=== PATIENT | female | born 1970 | race Caucasian/White ===

== ENCOUNTER 2019-03-16 17:20 | Observation (INO) ==
[2019-03-16 17:43] LABS: Microscopic, Urine URINE MICROSCOPIC (MICROSCOPIC)
[2019-03-16 17:45] LABS: Basophils % 0.3 % (0.1-2.0); Eosinophils # 0.2 K/mm3 (0.0-0.4); Eosinophils % 1.1 % (0.1-12.0); Lymphocytes # 3.4 K/mm3 (0.7-4.5); Lymphocytes % 25.8 % (10-50); Mean Corpuscular HGB Conc 33.3 g/dL (31.8-35.4); Mean Corpuscular Volume 87.9 fl (81-99); Mean Platelet Volume 8.6 fl (7.4-10.4); Monocytes # 0.6 K/mm3 (0.1-1.0); Monocytes % 4.2 % (1.7-9.3); Neutrophils # 9.1 K/mm3 (1.8-7.8); Neutrophils % 68.5 % (37.0-80.0); Platelet Count 363 K/mm3 (142-424); Red Blood Count 5.12 M/mm3 (4.20-5.40); Red Cell Distribution Width 13.9 % (11.5-17.5); White Blood Count 13.2 K/mm3 (4.8-10.8)
[2019-03-16 17:52] LABS: Appearance,Urine CLEAR (Clear); Bilirubin,Urine Negative (Negative); Blood, Urine TRACE-I (Negative); Color,Urine YELLOW (Yellow); Glucose,Urine (UA) Negative (Negative); Ketones,Urine Negative (Negative); Leukocyte Esterase,Urine Negative (Negative); PH,Urine 6.5 (5.0-8.5); Protein,Urine Negative (Negative); Specific Gravity, Urine 1.025 (1.005-1.030)
[2019-03-16 17:58] LABS: WBC,Urine Occasional #/hpf (0-3)
[2019-03-16 18:02] LABS: Alanine Aminotransferase 37 U/L (12-78); Alkaline Phosphatase 122 U/L (46-116); Amylase 62 U/L (25-115); Anion Gap 12.9 mEq/L (5-15); Aspartate Amino Transferase 20 U/L (15-37); Bilirubin,Total 0.7 mg/dL (0.2-1.0); Carbon Dioxide 29 mmol/L (21.0-32.0); Chloride 100 mmol/L (98-107); Glucose 102 mg/dL (74-106); Sodium 138 mmol/L (136-145); Total Protein,Serum 8.1 gm/dL (6.4-8.2)
[2019-03-16 18:18] LABS: Blood Urea Nitrogen 15 mg/dL (7-18); Calcium 9.1 mg/dL (8.5-10.1); Globulin 4.1 gm/dl (1.3-3.2)
--- NOTE | 2019-03-16 20:44 | Emergency Department Note ---
ED Disposition Clinical Impression: Abdominal pain Qualifiers: Abdominal location: right upper quadrant Qualified Code(s): R10.11 - Right upper quadrant pain Disposition: Admitted as Observation Condition on Discharge: Good Instructions: DI for Acute Abdomen Referrals: Kenroy Mariano MD [Primary Care Provider] - - Critical Care Critical Care Time: No Attestation: On 03/16/19, the high probability of a clinically significant, sudden or life threatening deterioration of the following system(s) required my full and direct attention, intervention and personal management. The time I documented below is in addition to time spent performing reported procedures but includes the following listed in this critical care notation. Medical Decision Making - Medical Records Medical records reviewed: Yes: I reviewed the patient's medical records. - Marcio Inquiry Pt receiving controlled substance: No Vital Signs: 03/16/19 17:31 03/16/19 19:46 Temperature 98.5 F 98.7 F Temperature Source Oral Oral Pulse Rate [Left Radial] 74 81 Respiratory Rate 16 18 Blood Pressure [Right Arm] 177/105 H 120/75 Blood Pressure Mean [Right Arm] 129 90 Blood Pressure Source [Right Arm] Automatic Cuff Blood Pressure Position [Right Arm] Sitting Sitting 02 Sat by Pulse Oximetry 98 99 Oxygen Delivery Method Room Air Room Air - Lab Data Lab results reviewed: Yes: I reviewed the patient's lab results. Lab Results 03/16/19 17:30: Urine Color Yellow, Urine Appearance Clear, Urine pH 6.5, Ur Specific [place] 1.025, Urine Protein Negative, Urine Glucose (UA) Negative, Urine Ketones Negative, Urine Blood Trace-i, Urine Nitrate Negative, Urine Bilirubin Negative, Urine Urobilinogen 1.0, Ur Leukocyte Esterase Negative, Urine RBC 3-5, Urine WBC Occasional, Ur Squamous Epith Cells 3-5, Urine Bacteria None 03/16/19 17:30: WBC 13.2 H, RBC 5.12, Hgb 15.0, Hct 45.0, MCV 87.9, MCH 29.3, MCHC 33.3, RDW 13.9, Plt Count 363, MPV 8.6, Neut % (Auto) 68.5, Lymph % (Auto) 25.8, [place] % (Auto) 4.2, Eos % (Auto) 1.1, Baso % (Auto) 0.3, Neut # (Auto) 9.1 H, Lymph # (Auto) 3.4, [place] # (Auto) 0.6, Eos # (Auto) 0.2, Baso # (Auto) 0.0 03/16/19 17:30: Sodium 138, Potassium 3.9, Chloride 100, Carbon Dioxide 29, Anion Gap 12.9, BUN 15, Creatinine 0.96, Estimated Creat Clear 104, Estimated GFR 62, Est GFR ( Amer) 75, Glucose 102, Calcium 9.1, Total Bilirubin 0.7, AST 20, ALT 37, Alkaline Phosphatase 122 H, Troponin I < 0.02, Total Protein 8.1, Albumin 4.0, Globulin 4.1 H, Albumin/Globulin Ratio 1.0 L, Amylase 62, Lipase 91 03/16/19 17:30: C-Reactive Protein 0.5 03/16/19 17:30: ESR 12 Result diagrams: 03/16/19 17:30 03/16/19 17:30 Orders (Tests/Meds): ED MEDICATIONS Generic Name Dose Route Start Last Admin Trade Name Freq PRN Reason Stop Dose Admin Sodium Chloride 1,000 mls @ 999 mls/hr 03/16/19 19:00 03/16/19 19:40 Sod Chlor 0.9% 1000ml Bag IV 03/16/19 20:00 999 mls/hr .Q1H1M MORELIA Administration Sodium Chloride 8 ml 03/16/19 18:57 Sodium Chloride 0.9% 10ml Vial IV 04/15/19 18:56 NEEDED PRN dilute pepcid Discontinued Medications Generic Name Dose Route Start Last Admin Trade Name Freq PRN Reason Stop Dose Admin Belladonna Alkaloids 60 ml 03/16/19 17:39 03/16/19 17:54 Gi Cocktail 60ml Udc PO 03/16/19 17:40 60 ml ONCE ONE Administration Famotidine 20 mg 03/16/19 18:57 03/16/19 19:40 Pepcid 20mg/2ml Vial IV 03/16/19 18:58 20 mg ONCE ONE Administration Ioversol 75 ml 03/16/19 19:04 03/16/19 19:05 Rad-Optiray 350 100ml Vial IV 03/16/19 19:05 75 ml ONCE ONE Administration Protocol Metoclopramide HCl 10 mg 03/16/19 18:57 03/16/19 19:40 Reglan 10mg/2ml Vial IVP 03/16/19 18:58 10 mg ONCE ONE Administration Ondansetron HCl 4 mg 03/16/19 17:40 03/16/19 17:44 Zofran 4mg/2ml Vial IV 03/16/19 17:41 4 mg ONCE ONE Administration Ondansetron HCl 4 mg 03/16/19 18:11 03/16/19 18:14 Zofran 4mg/2ml Vial IV 03/16/19 18:12 4 mg ONCE ONE Administration Sodium Chloride 10 ml 03/16/19 19:04 03/16/19 19:05 Rad-Saline Flush 10ml Syringe IV 03/16/19 19:05 10 ml ONCE ONE Administration ORDERS Category Date Time Status Troponin I Q3H Lab 03/16/19 23:45 Ordered Troponin I Routine Lab 03/16/19 20:45 Ordered - Radiology Data #1 Image(s): Chest Image Reviewed: Yes I reviewed the patient's radiology image Preliminary Findings: Normal/NAD - CT Data CT Scan: Abdomen, Pelvis Time Received: 20:[address] Reviewed: Yes: I have viewed the radiologist's interpretation Preliminary Findings: Abnormal (see report ) - ECG Data Tracing #1 Normal Sinus Rhythm: Yes Ischemic changes: non-specific ST-T wave changes - Physician Consults Physician Consulted: marina Reason -: Admission Nausea/Vomiting/Diarrhea HPI - General Chief complaint: Abdominal Pain Stated complaint: vomiting. abd pain Time Seen by Provider: 03/16/19 20:00 Mode of Arrival: Ambulatory Source of Information: Patient, Relative, Medical Record Limitations: No Limitations Description of Symptoms (Recalled from ER Triage Doc. by RN): to ed per pvt car with c/o epigastric pain starting . pt with hx of "stomach problems" x several years. pt tearful +vomiting several times since . - History of Present Illness HPI Narrative: pt with progressive upper abd pain with vomiting - has seen pcp and tried op treatment - worse with meals - no melena and no etoh and no chest pain MD complaint: nausea, vomiting, abdominal pain Onset (ago): day(s) Associated Abdominal Pain: Yes Location of pain: RUQ, epigastric Severity: moderate Quality: sharp Consistency: intermittent Exacerbating factors: eating Associated symptoms: denies other symptoms - Related Data Allergies Allergy/AdvReac Type Severity Reaction Status Date / Time PENICILLIN Allergy Unknown UNKNOWN Uncoded 02/27/17 15:02 SULFA (SULFONAMIDE) Allergy Unknown I-RASH Uncoded 02/27/17 15:02 [facility] History - Hepatitis A Screen Drug use history?: No High risk sexual behaviors?: No History of sexually transmitted infection?: No Currently employed?: No Childcare worker?: No Do you have indoor plumbing?: Yes Do you have electricity?: Yes Attestation statement:: This patient has been screened for Hepatitis A risk factors. I have reviewed the patient's past medical history: Yes - Social History Smoking Status: Current every day smoker # Packs/Day (cigarettes): 0 Alcohol Intake: never Occupational Status: other Housing: other ROS Obtained: Yes All systems reviewed & no additional complaints - Constitutional Constitutional: Denies fever(s) - Eyes Eyes: Denies change in vision - ENT Ears, Nose, Mouth, and Throat: Denies sore throat - Cardiovascular Cardiovascular: Denies chest pain - Respiratory Respiratory: No cough - Gastrointestinal Gastrointestingal: Reports: as per HPI, abdominal pain, nausea, vomiting. Denies: diarrhea, black, tarry stools - Genitourinary Female Genitourinary: Denies pelvic pain - Musculoskeletal Musculoskeletal: Denies joint pain - Integumentary/Breasts Skin/Breast: Denies rash - Neurologic Neurologic: Denies focal weakness, Denies seizure-like activity Physical Exam - General General appearance: alert - Head Head exam: normocephalic - Eye Eye exam: Present: PERRL, EOMI. Absent: scleral icterus - ENT ENT exam: Present: mucous membranes dry - Neck Neck exam: Present: trachea midline - Respiratory Respiratory exam: Present: normal lung sounds bilaterally. Absent: respiratory distress - Cardiovascular Cardiovascular exam: Present: regular rate, systolic murmur. Absent: rubs - Abdominal Exam Abdominal exam: Present: soft, tenderness, Lechuga's sign. Absent: guarding, rebound, rigidity Abdominal tenderness: Present: RUQ, moderate - Extremities Exam Extremities exam: Present: full ROM - Neurological Exam Neurological exam: Present: alert, oriented X3, CN II-XII intact - Psychiatric Psychiatric exam: Present: normal affect - Skin Skin exam: Absent: rash
[2019-03-17 05:50] LABS: Basophils % 0.5 % (0.1-2.0); Eosinophils # 0.1 K/mm3 (0.0-0.4); Eosinophils % 1.1 % (0.1-12.0); Hematocrit 39.2 % (37.0-47.0); Lymphocytes # 3.8 K/mm3 (0.7-4.5); Lymphocytes % 42.5 % (10-50); Mean Corpuscular HGB Conc 33.3 g/dL (31.8-35.4); Mean Corpuscular Volume 88.2 fl (81-99); Mean Platelet Volume 8.5 fl (7.4-10.4); Monocytes # 0.6 K/mm3 (0.1-1.0); Monocytes % 6.2 % (1.7-9.3); Neutrophils # 4.5 K/mm3 (1.8-7.8); Neutrophils % 49.7 % (37.0-80.0); Platelet Count 290 K/mm3 (142-424); Red Blood Count 4.45 M/mm3 (4.20-5.40); Red Cell Distribution Width 13.9 % (11.5-17.5)
[2019-03-17 05:51] LABS: Hemoglobin 13.1 g/dL (12.2-16.2)
[2019-03-17 06:05] LABS: Anion Gap 12.8 mEq/L (5-15); Calcium 8.4 mg/dL (8.5-10.1); Chol/HDL Ratio 2.7 (1-3.5)
--- NOTE | 2019-03-17 07:49 | Pharmacy Consult Notes ---
[facility] Pharmacy VTE Monitoring - Patient Demographics Admission date: 03/16/19 Report Date: 03/17/19 Time: 07:49 Allergies/Adverse Reactions: Patient Allergies PENICILLIN Allergy (Unknown, Uncoded 02/27/17 15:02) UNKNOWN SULFA (SULFONAMIDE) Allergy (Unknown, Uncoded 02/27/17 15:02) I-RASH Height: 1.55 m Weight: 95.345 kg Patient Problems: Current Active Problems Abdominal pain (Acute) - VTE Risk Labs: VTE Related Lab Results Hgb 13.1 g/dL (12.2-16.2) D 03/17/19 05:20 Hct 39.2 % (37.0-47.0) 03/17/19 05:20 Plt Count 290 K/mm3 (142-424) 03/17/19 05:20 BUN 12 mg/dL (7-18) 03/17/19 05:20 Creatinine 0.88 mg/dL (0.55-1.02) 03/17/19 05:20 Estimated Creat Clear 116 mL/min (50-200) 03/17/19 05:20 Was VTE Risk Assessment Performed: Yes VTE Score: 2 VTE Risk Level: Very Low Risk - Prophylaxis VTE Prophylaxis Ordered?: Yes Types of VTE Prophylaxis: TEDS Knee High Location of Applied Device: Bilateral Lower Extremeties - VTE Diagnosis Confirmed Treatment or plan recommended: Continue Current Treatment
--- NOTE | 2019-03-17 08:24 | History & Physical Report ---
*Admission Date: 03/16/19 *Chief complaint: Abdominal pain and nausea *History of present illness: 48-year-old white female with a 3-day history of being sick with GI distress, nausea, vomiting, no diarrhea, has had diminished fluid intake, very weak and with significant abdominal pain. Came to the emergency department yesterday, found to have leukocytosis, tender abdomen. Dehydrated, found to have abnormal gallbladder on CT scanning with evidence of diverticulosis, enteritis and dehydration. Admitted for IV fluids. Further diagnostic testing. [facility] History I have reviewed the patient's past medical history: Yes Medical History: Reports:: Hyperlipidemia, Hypertension Denies:: Cancer, Diabetes Mellitus Type 1, Diabetes Mellitus Type 2, MRSA *Have you ever received a pneumonia vaccine?: No *Have you received a flu vaccine this season?: No Other Surgeries: Yes: Hernia Repair, Tubal Ligation, Other (D&C.) Amputation: No Fractures: No - *Social History Educational Level: Completed High School Smoking Status: Current every day smoker # Packs/Day (cigarettes): 1 Alcohol Intake: never Substance Use Type: marijuana *Occupational Status:: unemployed Housing: other Household Members: spouse *Travel in the last 8 weeks: None Family Hx:: Asthma, Diabetes, Heart Attack, Hyperlipidemia, Hypertension, Stroke Review of Systems - Review of Systems Review of systems:: pertinent systems reviewed and negative unless documented below - Constitutional Reports anorexia - *Cardiovascular Denies chest pain, Denies excessive sweating, Denies shortness of breath - *Respiratory Denies change in phlegm color, Denies shortness of breath with activity, Denies excessive phlegm production - *Neurologic Denies localized weakness, Denies seizure-like activity Meds Home Medications Medication Instructions Recorded Confirmed Type Atorvastatin Calcium [Atorvastatin 40 mg PO DAILY 03/16/19 03/16/19 History 40mg Tab] Cyclobenzaprine HCl 10 mg PO BIDP PRN 03/16/19 03/17/19 History [Cyclobenzaprine 10mg Tab] Triamterene/Hydrochlorothiazid 1 each PO DAILY 03/17/19 03/17/19 History [Dyazide 37.5-25 Capsule] Allergies Allergy/AdvReac Type Severity Reaction Status Date / Time PENICILLIN Allergy Unknown UNKNOWN Uncoded 02/27/17 15:02 SULFA (SULFONAMIDE) Allergy Unknown I-RASH Uncoded 02/27/17 15:02 Exam Vital signs and Labs for Last 24 Hours: Temp Pulse Resp BP Pulse Ox 98.0 F 61 18 130/71 94 L 03/17/19 08:00 03/17/19 08:00 03/17/19 08:00 03/17/19 08:00 03/17/19 08:00 Laboratory Results - last 24 hr 03/16/19 17:30: Urine Color Yellow, Urine Appearance Clear, Urine pH 6.5, Ur Specific [place] 1.025, Urine Protein Negative, Urine Glucose (UA) Negative, Urine Ketones Negative, Urine Blood Trace-i, Urine Nitrate Negative, Urine Bilirubin Negative, Urine Urobilinogen 1.0, Ur Leukocyte Esterase Negative, Urine RBC 3-5, Urine WBC Occasional, Ur Squamous Epith Cells 3-5, Urine Bacteria None 03/16/19 17:30: WBC 13.2 H, RBC 5.12, Hgb 15.0, Hct 45.0, MCV 87.9, MCH 29.3, MCHC 33.3, RDW 13.9, Plt Count 363, MPV 8.6, Neut % (Auto) 68.5, Lymph % (Auto) 25.8, [place] % (Auto) 4.2, Eos % (Auto) 1.1, Baso % (Auto) 0.3, Neut # (Auto) 9.1 H, Lymph # (Auto) 3.4, [place] # (Auto) 0.6, Eos # (Auto) 0.2, Baso # (Auto) 0.0 03/16/19 17:30: Sodium 138, Potassium 3.9, Chloride 100, Carbon Dioxide 29, Anion Gap 12.9, BUN 15, Creatinine 0.96, Estimated Creat Clear 104, Estimated GFR 62, Est GFR ( Amer) 75, Glucose 102, Calcium 9.1, Total Bilirubin 0.7, AST 20, ALT 37, Alkaline Phosphatase 122 H, Troponin I < 0.02, Total Protein 8.1, Albumin 4.0, Globulin 4.1 H, Albumin/Globulin Ratio 1.0 L, Amylase 62, Lipase 91 03/16/19 17:30: C-Reactive Protein 0.5 03/16/19 17:30: ESR 12 03/16/19 20:48: Troponin I < 0.02 03/16/19 23:50: Troponin I < 0.02 03/17/19 05:20: WBC 9.0 D, RBC 4.45, Hgb 13.1 D, Hct 39.2, MCV 88.2, MCH 29.4, MCHC 33.3, RDW 13.9, Plt Count 290, MPV 8.5, Neut % (Auto) 49.7, Lymph % (Auto) 42.5, [place] % (Auto) 6.2, Eos % (Auto) 1.1, Baso % (Auto) 0.5, Neut # (Auto) 4.5, Lymph # (Auto) 3.8, [place] # (Auto) 0.6, Eos # (Auto) 0.1, Baso # (Auto) 0.0 03/17/19 05:20: Sodium 140, Potassium 3.8, Chloride 103, Carbon Dioxide 28, Anion Gap 12.8, BUN 12, Creatinine 0.88, Estimated Creat Clear 116, Estimated GFR 68, Est GFR ( Amer) 83, Glucose 89, Calcium 8.4 L, Magnesium 2.0, Triglycerides 53, Cholesterol 139 L, LDL Cholesterol 76, VLDL Cholesterol 11, HDL Cholesterol 52, Cholesterol/HDL Ratio 2.7 I & O for Last 24 hours: Intake & Output 03/14/19 03/15/19 03/16/19 03/17/19 11:59 11:59 11:59 11:59 Intake Total 1353 / 1353 Balance 1353 / 1353 Weight 210 lb 3.2 oz Narrative: Pleasant, alert, oriented x3. No scleral icterus. No jaundice, no JVD. Oropharynx clear. Lungs clear. Heart rate regular. Abdomen soft, nontender except in the right upper quadrant where she has a positive Lechuga sign. No CVA tenderness. No periumbilical or flank bruising. No edema, clubbing or cyanosis. Neurologic exam intact. Assessment and Plan (1) Abdominal pain Current visit: Yes Status: Acute Qualifiers: Abdominal location: right upper quadrant Qualified Code(s): R10.11 - Right upper quadrant pain Category: Medical Code(s): R10.9 - Unspecified abdominal pain CT scan with contracted gallbladder with possible stones. Ultrasound today. Continue IV fluids and clear liquids. Surgical consultation if indicated from ultrasound report.
--- NOTE | 2019-03-17 12:18 | Consult Report ---
*Admission Date: 03/16/19 *Reason for consult:: Gallbladder *History of present illness: Patient is a 48-year-old female who resides in [place] [employer] [place]. She states that she has had upper abdominal pain and symptomatology for 3 years. It has been progressively more severe over the past couple of months as she had previously taken omeprazole which seemed to somewhat alleviate her symptoms. She presented to the emergency department overnight with a 3-day history of being sick with GI distress, nausea, vomiting, no diarrhea, has had diminished fluid intake, very weak and with significant abdominal pain. She was found to have leukocytosis, tender abdomen. CT scan revealed possible findings of abnormal gallbladder. She was admitted for inpatient management. Her nausea resolved but she continued to have tenderness. She underwent gallbladder ultrasound today which revealed findings of contracted gallbladder with thickened wall and gallstone. Surgical consultation was obtained. Review of Systems - Review of Systems Review of systems:: pertinent systems reviewed and negative unless documented below - *Neurologic Denies localized weakness, Denies seizure-like activity [facility] History I have reviewed the patient's past medical history: Yes Medical History: Reports:: Hyperlipidemia, Hypertension Denies:: Cancer, Diabetes Mellitus Type 1, Diabetes Mellitus Type 2, MRSA *Have you ever received a pneumonia vaccine?: No *Have you received a flu vaccine this season?: No Other Surgeries: Yes: Hernia Repair, Tubal Ligation, Other (D&C.) Amputation: No Fractures: No - *Social History Educational Level: Completed High School Smoking Status: Current every day smoker # Packs/Day (cigarettes): 1 Alcohol Intake: never Substance Use Type: marijuana *Occupational Status:: unemployed Housing: other Household Members: spouse *Travel in the last 8 weeks: None Family Hx:: Asthma, Diabetes, Heart Attack, Hyperlipidemia, Hypertension, Stroke Meds Home Medications Medication Instructions Recorded Confirmed Type Atorvastatin Calcium [Atorvastatin 40 mg PO DAILY 03/16/19 03/16/19 History 40mg Tab] Cyclobenzaprine HCl 10 mg PO BIDP PRN 03/16/19 03/17/19 History [Cyclobenzaprine 10mg Tab] Triamterene/Hydrochlorothiazid 1 each PO DAILY 03/17/19 03/17/19 History [Dyazide 37.5-25 Capsule] Allergies Allergy/AdvReac Type Severity Reaction Status Date / Time PENICILLIN Allergy Unknown UNKNOWN Uncoded 12/19/17 15:02 SULFA (SULFONAMIDE) Allergy Unknown I-RASH Uncoded 02/27/17 15:02 Exam Vital signs and Labs for Last 24 Hours: Temp Pulse Resp BP Pulse Ox 98.1 F 66 14 111/69 95 03/17/19 12:06 03/17/19 12:06 03/17/19 12:06 03/17/19 12:06 03/17/19 12:06 Laboratory Results - last 24 hr 03/16/19 17:30: Urine Color Yellow, Urine Appearance Clear, Urine pH 6.5, Ur Specific [place] 1.025, Urine Protein Negative, Urine Glucose (UA) Negative, Urine Ketones Negative, Urine Blood Trace-i, Urine Nitrate Negative, Urine Bilirubin Negative, Urine Urobilinogen 1.0, Ur Leukocyte Esterase Negative, Urine RBC 3-5, Urine WBC Occasional, Ur Squamous Epith Cells 3-5, Urine Bacteria None 03/16/19 17:30: WBC 13.2 H, RBC 5.12, Hgb 15.0, Hct 45.0, MCV 87.9, MCH 29.3, MCHC 33.3, RDW 13.9, Plt Count 363, MPV 8.6, Neut % (Auto) 68.5, Lymph % (Auto) 25.8, [place] % (Auto) 4.2, Eos % (Auto) 1.1, Baso % (Auto) 0.3, Neut # (Auto) 9.1 H, Lymph # (Auto) 3.4, [place] # (Auto) 0.6, Eos # (Auto) 0.2, Baso # (Auto) 0.0 03/16/19 17:30: Sodium 138, Potassium 3.9, Chloride 100, Carbon Dioxide 29, Anion Gap 12.9, BUN 15, Creatinine 0.96, Estimated Creat Clear 104, Estimated GFR 62, Est GFR ( Amer) 75, Glucose 102, Calcium 9.1, Total Bilirubin 0.7, AST 20, ALT 37, Alkaline Phosphatase 122 H, Troponin I < 0.02, Total Protein 8.1, Albumin 4.0, Globulin 4.1 H, Albumin/Globulin Ratio 1.0 L, Amylase 62, Lipase 91 03/16/19 17:30: C-Reactive Protein 0.5 03/16/19 17:30: ESR 12 03/16/19 20:48: Troponin I < 0.02 03/16/19 23:50: Troponin I < 0.02 03/17/19 05:20: WBC 9.0 D, RBC 4.45, Hgb 13.1 D, Hct 39.2, MCV 88.2, MCH 29.4, MCHC 33.3, RDW 13.9, Plt Count 290, MPV 8.5, Neut % (Auto) 49.7, Lymph % (Auto) 42.5, [place] % (Auto) 6.2, Eos % (Auto) 1.1, Baso % (Auto) 0.5, Neut # (Auto) 4.5, Lymph # (Auto) 3.8, [place] # (Auto) 0.6, Eos # (Auto) 0.1, Baso # (Auto) 0.0 03/17/19 05:20: Sodium 140, Potassium 3.8, Chloride 103, Carbon Dioxide 28, Anion Gap 12.8, BUN 12, Creatinine 0.88, Estimated Creat Clear 116, Estimated GFR 68, Est GFR ( Amer) 83, Glucose 89, Calcium 8.4 L, Magnesium 2.0, Triglycerides 53, Cholesterol 139 L, LDL Cholesterol 76, VLDL Cholesterol 11, HDL Cholesterol 52, Cholesterol/HDL Ratio 2.7 I & O for Last 24 hours: Intake & Output 03/15/19 03/16/19 03/17/19 03/18/19 11:59 11:59 11:59 11:59 Intake Total 1353 / 1353 Balance 1353 / 1353 Weight 210 lb 3.2 oz - *Routine Respiratory Exam Present: CTA bilaterally - *Routine Cardiovascular Exam Present: RRR - *Routine Abdominal Exam Present: soft Comments: She has a well-healed laparoscopy scar and a scar in the mid upper abdomen from prior hernia repair. She does have tenderness with Lechuga sign in the right upper quadrant. Results - Labs 03/17/19 05:20 03/17/19 05:20 Laboratory Results - last 24 hr 03/16/19 17:30: Urine Color Yellow, Urine Appearance Clear, Urine pH 6.5, Ur Specific [place] 1.025, Urine Protein Negative, Urine Glucose (UA) Negative, Urine Ketones Negative, Urine Blood Trace-i, Urine Nitrate Negative, Urine Bilirubin Negative, Urine Urobilinogen 1.0, Ur Leukocyte Esterase Negative, Urine RBC 3-5, Urine WBC Occasional, Ur Squamous Epith Cells 3-5, Urine Bacteria None 03/16/19 17:30: WBC 13.2 H, RBC 5.12, Hgb 15.0, Hct 45.0, MCV 87.9, MCH 29.3, MCHC 33.3, RDW 13.9, Plt Count 363, MPV 8.6, Neut % (Auto) 68.5, Lymph % (Auto) 25.8, [place] % (Auto) 4.2, Eos % (Auto) 1.1, Baso % (Auto) 0.3, Neut # (Auto) 9.1 H, Lymph # (Auto) 3.4, [place] # (Auto) 0.6, Eos # (Auto) 0.2, Baso # (Auto) 0.0 03/16/19 17:30: Sodium 138, Potassium 3.9, Chloride 100, Carbon Dioxide 29, Anion Gap 12.9, BUN 15, Creatinine 0.96, Estimated Creat Clear 104, Estimated GFR 62, Est GFR ( Amer) 75, Glucose 102, Calcium 9.1, Total Bilirubin 0.7, AST 20, ALT 37, Alkaline Phosphatase 122 H, Troponin I < 0.02, Total Protein 8.1, Albumin 4.0, Globulin 4.1 H, Albumin/Globulin Ratio 1.0 L, Amylase 62, Lipase 91 03/16/19 17:30: C-Reactive Protein 0.5 03/16/19 17:30: ESR 12 03/16/19 20:48: Troponin I < 0.02 03/16/19 23:50: Troponin I < 0.02 03/17/19 05:20: WBC 9.0 D, RBC 4.45, Hgb 13.1 D, Hct 39.2, MCV 88.2, MCH 29.4, MCHC 33.3, RDW 13.9, Plt Count 290, MPV 8.5, Neut % (Auto) 49.7, Lymph % (Auto) 42.5, [place] % (Auto) 6.2, Eos % (Auto) 1.1, Baso % (Auto) 0.5, Neut # (Auto) 4.5, Lymph # (Auto) 3.8, [place] # (Auto) 0.6, Eos # (Auto) 0.1, Baso # (Auto) 0.0 03/17/19 05:20: Sodium 140, Potassium 3.8, Chloride 103, Carbon Dioxide 28, Anion Gap 12.8, BUN 12, Creatinine 0.88, Estimated Creat Clear 116, Estimated GFR 68, Est GFR ( Amer) 83, Glucose 89, Calcium 8.4 L, Magnesium 2.0, Triglycerides 53, Cholesterol 139 L, LDL Cholesterol 76, VLDL Cholesterol 11, HDL Cholesterol 52, Cholesterol/HDL Ratio 2.7 Assessment and Plan (1) Abdominal pain Current visit: Yes Status: Acute Qualifiers: Abdominal location: right upper quadrant Qualified Code(s): R10.11 - Right upper quadrant pain Category: Medical Code(s): R10.9 - Unspecified abdominal pain - Assessment and plan all Dx Assessment and Plan for all problems:: She does have findings consistent with chronic cholecystitis with acute exacerbation. I discussed the options with the patient. I will let her have full liquids this afternoon. Tentatively plan for laparoscopic with possibly open cholecystectomy tomorrow.
--- NOTE | 2019-03-17 13:00 | Electrocardiograph Report ---
APPROVED REPORT Exam: Resting ECG HR:63 bpm ECG Measurements Heart Rate 63 AXES VA 162 P 71 QRSd 76 QRS 85 QT 426 T72 QTc 435 <Conclusion> Normal sinus rhythm Nonspecific ST abnormality Abnormal ECG Electronically signed by : Prem Jaffe, 03/17/2019 13:00:09
--- NOTE | 2019-03-18 12:32 | Progress Note ---
[facility] Anesthesia Checklist - Patient Identification Patient Identification: Arm Band, Verbal (Name & ) - Structural Data Admitted From: Inpatient Planned Operative Procedure/s: Laparoscopic cholecystectomy Consent for Planned Operative Procedure(s) Verified: Yes Verified Documents: Surgical Consent, History and Physical - NPO Status Verified Time NPO: 00:00 - Chart Verification Results Verified: CBC, BMP - Additional verifications Patient : No Anesthesia Reactions: No - Airway Assessment C-Spine Mobility Assessed: Yes TMJ Mobility Assessed: Yes Dentition: Good Dentition - Neurological Assessment Level of Consciousness: Awake, Alert, Appropriate, Follows Commands Hx Seizures: No Numbness or tingling in extremities: No - Anesthesia Plan Anesthesia Risk discussed: Yes Anesthesia Plan: Verified ASA Class: III Anesthesia Type: General [facility] History I have reviewed the patient's past medical history: Yes Medical History: Reports:: Asthma, Gastroesophageal Reflux Disease(GERD), Hyperlipidemia, Hypertension Denies:: Cancer, Diabetes Mellitus Type 1, Diabetes Mellitus Type 2, MRSA *Have you ever received a pneumonia vaccine?: No *Have you received a flu vaccine this season?: No Comment:: obesity, hx of neurospine abnormality as Anesthesia experience/problems:: no complications Other Surgeries: Yes: Dilation and Curettage, Hernia Repair, Tubal Ligation, O ther (D&C.) Amputation: No Fractures: No - *Social History Educational Level: Completed High School Smoking Status: Current every day smoker Tobacco Type: cigarettes # Packs/Day (cigarettes): 1 Alcohol Intake: never Substance Use Type: marijuana *Occupational Status:: unemployed Housing: other Household Members: spouse *Travel in the last 8 weeks: None Family Hx:: Asthma, Diabetes, Heart Attack, Hyperlipidemia, Hypertension, Stroke
--- NOTE | 2019-03-18 13:58 | Progress Note ---
Internal Medicine - PN: Subj *Date: 03/18/19 *Time: 08:15 Interval history: Patient pleasant and cooperative on rounds this morning. Continues to complain of some right upper quadrant pain. N.p.o. this morning for anticipated surgical intervention on gallbladder. Denies any nausea or vomiting overnight. Remained afebrile. Hemodynamically stable this morning. Reviewed labs, normal this morning. Patient otherwise states she feels little bit better today. Denies chest pain, shortness of breath, confusion Exam Vital signs and Labs for Last 24 Hours: Temp Pulse Resp BP Pulse Ox 97.7 F 64 18 131/76 97 03/18/19 08:00 03/18/19 08:00 03/18/19 08:00 03/18/19 08:00 03/18/19 08:00 Laboratory Results - last 24 hr 03/18/19 11:15: Urine HCG, Qual Negative I & O for Last 24 hours: Intake & Output 03/15/19 03/16/19 03/17/19 03/18/19 23:59 23:59 23:59 23:59 Intake Total 1000 / 1000 1874 / 1874 Output Total 500 / 500 500 / 500 Balance 1000 / 1000 1374 / 1374 -500 / -500 Weight 95.345 kg 93.553 kg Narrative: Pleasant, alert, oriented x3. No scleral icterus. No jaundice, no JVD. Oropharynx clear, MMM Lungs clear, no wheeze or rhonchi Heart rate regular, no murmur Abdomen soft, right upper quadrant tenderness, positive Lechuga sign. No tenderness in other quadrants, no rebound or guarding No edema, clubbing or cyanosis. Neurologic exam intact. Assessment and Plan (1) Abdominal pain Current visit: Yes Status: Acute Qualifiers: Abdominal location: right upper quadrant Qualified Code(s): R10.11 - Right upper quadrant pain Category: Medical Code(s): R10.9 - Unspecified abdominal pain (2) Cholelithiasis Current visit: Yes Status: Acute Qualifiers: Cholelithiasis location: gallbladder Category: Medical Code(s): K80.20 - Calculus of gallbladder without cholecystitis without obstruction (3) Obesity with body mass index (BMI) of 35.0 to 39.9 without comorbidity Current visit: Yes Status: Chronic Category: Medical Code(s): E66.9 - Obesity, unspecified complicates all aspects of her care. - Assessment and plan all Dx Assessment and Plan for all problems:: Planning for Surgery today. Continue IV Abx. Plan advance diet slowly after surgery. Continue to monitor overnight for any complications. Reassess in the morning.
--- NOTE | 2019-03-18 14:51 | Operative Note ---
Date of procedure: 03/18/19 Pre-op Diagnosis:: Cholecystitis with gallstones Post-op Diagnosis:: Same Procedure performed:: Laparoscopic cholecystectomy Surgeon:: Pierre Echeverria MD Anesthesia: SEBASTIAN Estimated blood loss (mL): 50 Clinical Note:: Patient is a 48-year-old female who resides in [place]. She states that she has had upper abdominal pain and symptomatology for 3 years. It has been progressively more severe over the past couple of months as she had previously taken omeprazole which seemed to somewhat alleviate her symptoms. She presented to the emergency department recently with a several day history of being sick with GI distress, nausea, vomiting, no diarrhea, has had diminished fluid intake, very weak and with significant abdominal pain. She was found to have leukocytosis, tender abdomen. CT scan revealed possible findings of abnormal gallbladder. She was admitted for inpatient management. Her nausea resolved but she continued to have tenderness. She underwent gallbladder ultrasound which revealed findings of contracted gallbladder with thickened wall and gallstone. Surgical consultation was obtained. Patient was seen and examined. She had ongoing findings consistent with clinical cholecystitis. Plan was made to proceed with cholecystectomy the next morning. Operative findings:: Patient had significant adhesions to the gallbladder. 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 Gallbladder was contracted and thickened with large stones. Gallbladder was hydropic. She had appreciably fatty liver. Operative note:: Consent was obtained and patient was taken to the operating room. She was given preoperative intravenous antibiotics. In the operating room she was placed in a supine position. General anesthesia was induced via endotracheal tube. Her abdomen was prepped and draped in the standard surgical fashion. Subumbilical skin incision was made in previous laparoscopy scar. Dissection was carried down to the fascia and while performing abdominal wall lift Veress needle was inserted. CO2 pneumoperitoneum was achieved to 15 mmHg. 10 mm trocar was inserted at the umbilicus. Intraperitoneal contents were visualized. She was found to have evidence of fatty liver. The 0 degree laparoscope was replaced with 45 degree laparoscope to allow for visualization. She was positioned in reverse Trendelenburg with left side down. A couple of 5 mm trochars were inserted in the right upper abdomen. 10 mm trocar was inserted in the epigastrium. Liver was elevated. There was markedly thickened with some evidence of fatty infiltration. It bled rather easily. Some Surgicel was used for temporary hemostasis on the liver bed. There was good hemostasis once this was removed. It was noted that the duodenal bulb was densely adherent to the gallbladder. Careful dissection was initiated with blunt dissection and some limited use of laparoscopic Metzenbaum dissection. However, there were findings possibly consistent with and concerning for a cholecysto-duodenal fistula. This was adherent to the apex of the gallbladder at the fundus. Dissection was carried down to the gallbladder and this was very densely adherent. Ultimately it was divided. It was inspected for evidence of any enteric leak of which none was noted. Anesthesia then placed a orogastric tube. Stomach was insufflated with air as was the duodenum and it was visualized to insufflate. There is no evidence of any leakage from the duodenum. The previously noted attachment to the gallbladder was then looped with a couple of 0 PDS Endoloops. Attention was turned to dissection of the gallbladder. The fundus of the gallbladder was retracted anteriorly. Dissection was carried out to the infundibulum and body of the gallbladder which was retracted anterior laterally. There were impacted stones in the neck of the gallbladder. Careful prolonged dissection was carried out of the wendy hepatis. Ultimately the cystic duct was identified. It was multiply clipped and then divided. What appeared to be cystic artery was identified as well at that time visualizing the critical view of safety. The cystic artery was clipped proximally and then divided sharply. There was good backbleeding from the gallbladder. Hemoclip was then placed on the gallbladder portion of the cystic artery. The gallbladder was dissected free from the liver in a retrograde fashion using JOSE FRANCISCO ultrasonic harmonic ermelinda. Please note that there was some evidence of hydrops of the gallbladder with some mucousy bile exuding from the gallbladder which was immediately suctioned free. The gallbladder was placed within an Endo Catch retrieval device and removed from the peritoneal cavity via the umbilical trocar site. Gallbladder fossa was thoroughly irrigated and aspirated until clear. There appeared to be good hemostasis. Trochars were removed as CO2 pneumoperitoneum was evacuated. Fascia at the umbilicus was closed with a 0 Vicryl [id number] suture. Local anesthetic was infiltrated. Skin incisions were closed with 4-0 Monocryl in a subcuticular fashion. Steri-Strips and dressings were applied. Note: Given the findings of potential cholecysto enteric fistula plan will be to limit to a clear liquid diet overnight and obtain an upper GI series tomorrow morning. Condition: stable Disposition: PACU Specimens:: Gallbladder and contents Complications:: None immediately apparent
--- NOTE | 2019-03-18 15:02 | Progress Note ---
[facility] Anesthesia Record Part I Intake, IV Amount: 1,400 Estimated blood loss (mL): 50 Urine output (mL): 0 Blood Pressure: 146/69 SaO2: 97 Pulse Rate: 64 Respiratory Rate: 16 Temperature: 97.1 F Patient is:: Drowsy, Stable Stable to PACU at:: 14:50
--- NOTE | 2019-03-18 23:33 | Progress Note ---
[facility] Anesthesia Record Part II Discharge Time: 15:38 Destination: Medical Surgical Department PACU nurse assessment reviewed?: Yes Patient Condition:: Good Anesthesia Complications:: None Swallowing reflex intact?: Yes Cyanosis?: No Blood Pressure: 150/86 Pulse Rate: 56 Temperature: 97.1 F Mental Status: Alert & Oriented Pain level:: 0 Nausea and/or vomitting:: None Intake, IV Amount: 0
--- NOTE | 2019-03-19 06:58 | Progress Note ---
Subjective Narrative: Patient complains of being "sore". Tolerating clear liquid diet. Exam Vital signs and Labs for Last 24 Hours: Temp Pulse Resp BP Pulse Ox 98.4 F 64 18 114/64 93 L 03/19/19 04:00 03/19/19 04:00 03/19/19 04:00 03/19/19 04:00 03/19/19 04:00 Laboratory Results - last 24 hr 03/18/19 11:15: Urine HCG, Qual Negative I & O for Last 24 hours: Intake & Output 03/16/19 03/17/19 03/18/19 03/19/19 11:59 11:59 11:59 11:59 Intake Total 1353 / 1353 1521 / 1521 2989 / 2989 Output Total 1000 / 1000 2600 / 2600 Balance 1353 / 1353 521 / 521 389 / 389 Weight 210 lb 3.2 oz 206 lb 4 oz 211 lb 4 oz - *Routine Abdominal Exam Present: soft Comments: Incision dressed. Progress Note: A&P (1) Abdominal pain Status: Acute Current Visit: Yes (2) Cholelithiasis Status: Acute Current Visit: Yes (3) Obesity with body mass index (BMI) of 35.0 to 39.9 without comorbidity Status: Chronic Current Visit: Yes Assessment and Plan for All Diagnoses:: Due to the fact that her duodenal bulb was densely adherent to the gallbladder and there was potential cholecysto-enteric fistula plan for upper GI today. Pending this possible discharge later.
--- NOTE | 2019-03-19 08:44 | Progress Note ---
Internal Medicine - PN: Subj *Date: 03/19/19 *Time: 08:43 Interval history: Overall patient feels okay, breathing well. Does note some expected incisional pain. Surgical operative note and consultation reviewed and appreciated. Exam Vital signs and Labs for Last 24 Hours: Temp Pulse Resp BP Pulse Ox 98.2 F 73 18 141/78 H 94 L 03/19/19 08:00 03/19/19 08:00 03/19/19 08:00 03/19/19 08:00 03/19/19 08:00 Laboratory Results - last 24 hr 03/18/19 11:15: Urine HCG, Qual Negative I & O for Last 24 hours: Intake & Output 03/16/19 03/17/19 03/18/19 03/19/19 11:59 11:59 11:59 11:59 Intake Total 1353 / 1353 1521 / 1521 2989 / 2989 Output Total 1000 / 1000 2600 / 2600 Balance 1353 / 1353 521 / 521 389 / 389 Weight 210 lb 3.2 oz 206 lb 4 oz 211 lb 4 oz Narrative: Heart rate regular, lungs clear, oropharynx clear, no JVD. Neurologically intact. Abdomen soft, incision site looks good. Assessment and Plan (1) Abdominal pain Current visit: Yes Status: Acute Qualifiers: Abdominal location: right upper quadrant Qualified Code(s): R10.11 - Right upper quadrant pain Category: Medical Code(s): R10.9 - Unspecified abdominal pain (2) Cholelithiasis Current visit: Yes Status: Acute Qualifiers: Cholelithiasis location: gallbladder Category: Medical Code(s): K80.20 - Calculus of gallbladder without cholecystitis without obstruction (3) Obesity with body mass index (BMI) of 35.0 to 39.9 without comorbidity Current visit: Yes Status: Chronic Category: Medical Code(s): E66.9 - Obesity, unspecified - Assessment and plan all Dx Assessment and Plan for all problems:: Progressing well postoperatively. Continue current management. Upper GI testing today. Possible discharge after this.
--- NOTE | 2019-03-19 12:48 | Progress Note ---
Subjective Narrative: Patient's upper GI series today revealed no evidence of any appreciable issue at the duodenal bulb. She had a low-fat diet for lunch which she tolerated without difficulty. Exam Vital signs and Labs for Last 24 Hours: Temp Pulse Resp BP Pulse Ox 98.2 F 73 18 141/78 H 94 L 03/19/19 08:00 03/19/19 08:00 03/19/19 08:00 03/19/19 08:00 03/19/19 08:00 I & O for Last 24 hours: Intake & Output 03/17/19 03/18/19 03/19/19 03/20/19 11:59 11:59 11:59 11:59 Intake Total 1353 / 1353 1521 / 1521 2989 / 2989 Output Total 1000 / 1000 2600 / 2600 Balance 1353 / 1353 521 / 521 389 / 389 Weight 210 lb 3.2 oz 206 lb 4 oz 211 lb 4 oz - Constitutional no acute distress Progress Note: A&P (1) Abdominal pain Status: Acute Current Visit: Yes (2) Cholelithiasis Status: Acute Current Visit: Yes (3) Obesity with body mass index (BMI) of 35.0 to 39.9 without comorbidity Status: Chronic Current Visit: Yes Assessment and Plan for All Diagnoses:: Plan to discharge home
--- NOTE | 2019-03-19 13:34 | Discharge Summary ---
General - General Admission date:: 03/16/19 Discharge date: 03/19/19 HPI HPI: 48-year-old white female with a 3-day history of being sick with GI distress, nausea, vomiting, no diarrhea, has had diminished fluid intake, very weak and with significant abdominal pain. Came to the emergency department yesterday, found to have leukocytosis, tender abdomen. Dehydrated, found to have abnormal gallbladder on CT scanning with evidence of diverticulosis, enteritis and dehydration. Admitted for IV fluids. Further diagnostic testing. Hospital Course Hospital Course: Patient was admitted, labs and CT scan were noted as above, ultrasound showed findings consistent with acute cholelithiasis with acute cholecystitis. Patient was subjected to laparoscopic cholecystectomy yesterday. She did well with this. Tolerated clear liquids. This morning upper GI showed no evidence of obstruction and no evidence of duodenitis. She felt better, tolerating low-fat diet and she will be discharged home. Objective Vital signs: Temp Pulse Resp BP Pulse Ox 98.2 F 73 18 141/78 H 94 L 03/19/19 08:00 03/19/19 08:00 03/19/19 08:00 03/19/19 08:00 03/19/19 08:00 Narrative: Please see exam notes from this morning. DS: Diagnosis - Discharge Diagnosis (1) Abdominal pain Status: Resolved (2) Cholelithiasis Status: Resolved (3) Obesity with body mass index (BMI) of 35.0 to 39.9 without comorbidity Status: Chronic Discharge Plan - Patient Discharge Instructions ACTIVITY: No heavy lifting DIET: advance to your usual diet Patient Instructions: DI for Cholecystectomy, DI for Surgical Site Infection, Cholecystectomy -- Laparoscopic Surgery - Follow up Plan Follow up with: Pierre Echeverria MD [Staff Physician] - 2 weeks Kenroy Mariano MD [Primary Care Provider] - Disposition: Home, Self-[facility] Medications: Home Medications Medication Instructions Recorded Confirmed Type Atorvastatin Calcium [Atorvastatin 40 mg PO DAILY 03/16/19 03/16/19 History 40mg Tab] Cyclobenzaprine HCl 10 mg PO BIDP PRN 03/16/19 03/17/19 History [Cyclobenzaprine 10mg Tab] Triamterene/Hydrochlorothiazid 1 each PO DAILY 03/17/19 03/17/19 History [Dyazide 37.5-25 Capsule] Acetaminophen with Codeine 1 - 2 tab PO Q6HP PRN #17 tab 03/19/19 Rx [Tylenol with Codeine #3 tablet] Prescriptions/Medication Reconciliation: New Acetaminophen with Codeine [Tylenol with Codeine #3 tablet] 1 - 2 tab PO Q6HP PRN #17 tab PRN Reason: Moderate Pain Continued Triamterene/Hydrochlorothiazid [Dyazide 37.5-25 Capsule] 1 each PO DAILY Cyclobenzaprine HCl [Cyclobenzaprine 10mg Tab] 10 mg PO BIDP PRN PRN Reason: Muscle Spasm Atorvastatin Calcium [Atorvastatin 40mg Tab] 40 mg PO DAILY - Problem Reconciliation Problems Reviewed?: Yes
== END 2019-03-19 14:20 | disposition home or self-care (01) ==
LOC: ICU 17:20 → ER 17:20 → ICU 21:07 → 2ND 03-17 14:52
PROVIDERS: ADMIT Family Medicine; ATTEND Internal Medicine Adolescent Medicine
DX: K80.00 Calculus of gallbladder with acute cholecystitis without obstruction
CPT/HCPCS: 36415; 71010; 71045; 74177; 74241; 76705; 80048; 80053; 80061; 81001; 81025; 82150; 83690; 83735; 84484; 85025; 85651; 86140; 93005; 96365; 96375; 96376; 99284; G0378; J2405; J2710; Q9967; S0077

== ENCOUNTER → 2019-07-25 10:08 | Outpatient (CLI) | payer OTHER, SELFPAY ==
--- NOTE | 2019-07-25 10:14 | MM_ITS ---
PROCEDURE: MM DIG SCREENING MAMM BI W/CAD Digital Breast Tomosynthesis Included CLINICAL INDICATION: SCREENING There is a history of breast cancer patient's 2 sisters both diagnosed before menopause. COMPARISON: There are no previous mammograms available for comparison. TECHNIQUE: Standard CC and MLO images and 3D Tomosynthesis was obtained. R2 CAD reviewed. FINDINGS: The breasts are composed primarily of fat with scattered fibroglandular densities in each breast. There is no suspicious lesion in either breast and no suspicious microcalcifications. There are several small normal appearing nodes in both axilla. IMPRESSION: Fatty type breast parenchyma with no suspicious lesions seen BI-RAD Category: 1 Negative FOLLOW-UP: 1 YR 1 YR Follow-up (A letter has been sent to the patient regarding results of the study.) Dictated by: Dr. Jesús Melgar MD 07/28/2019 18:[address] Jesús Melgar MD in [place] 07/28/2019 18:26
== END ==
PROVIDERS: PCP Internal Medicine Adolescent Medicine; Visit Provider Nurse Practitioner Family
DX: Z12.31 Encounter for screening mammogram for malignant neoplasm of breast (principal)
CPT/HCPCS: 77063; 77067

== ENCOUNTER → 2019-08-18 10:16 | Outpatient (CLI) | payer OTHER, SELFPAY ==
[2019-08-18 13:32] LABS: Coronavirus 19 IgG Antibody Negative (Negative); Coronavirus 19 IgM Antibody Negative (Negative)
== END ==
PROVIDERS: Visit Provider Surgery
DX: Z01.818 Encounter for other preprocedural examination (principal); K59.00 Constipation, unspecified
CPT/HCPCS: 36415; 86328

== ENCOUNTER 2019-08-19 06:05 | Day surgery (SDC) | payer OTHER, SELFPAY ==
--- NOTE | 2019-08-15 10:27 | SUR.PREOP ---
08/15/2019 @ 1030--PHONE CALL MADE TO PATIENT. PATIENT UNDERSTANDS THAT LAB WORK AND COVID TESTING NEEDS TO BE COMPLETED @ 1000 ON 08/18/2019. PATIENT UNDERSTANDS IF LAB WORK AND COVID-19 TESTS ARE NOT COMPLETED BY 12PM ON THAT DATE, THE SURGERY SCHEDULED WILL BE CANCELLED AND RESCHEDULED FOR ANOTHER TIME.
[2019-08-19 07:07] VITALS: BP 140/82; PULSE 77; RESP 20; TEMP 36.8; O2SAT 96
--- NOTE | 2019-08-19 07:11 | HMH.ANESCL ---
[facility] Anesthesia Checklist - Patient Identification Patient Identification: Arm Band - Structural Data Admitted From: Home Planned Operative Procedure/s: colonoscopy Consent for Planned Operative Procedure(s) Verified: Yes Verified Documents: Surgical Consent, History and Physical - NPO Status Verified Time NPO: 00:00 - Additional verifications Anesthesia Reactions: No - Airway Assessment C-Spine Mobility Assessed: Yes (mp2) TMJ Mobility Assessed: Yes Dentition: Good Dentition - Neurological Assessment Level of Consciousness: Awake, Alert, Appropriate - Anesthesia Plan Anesthesia Risk discussed: Yes Anesthesia Plan: Verified ASA Class: III Anesthesia Type: MAC [facility] History I have reviewed the patient's past medical history: Yes Medical History: Reports:: Asthma, Gastroesophageal Reflux Disease(GERD), Hyperlipidemia, Hypertension Denies:: Cancer, Diabetes Mellitus Type 1, Diabetes Mellitus Type 2, MRSA, Seizures *Have you ever received a pneumonia vaccine?: No *Have you received a flu vaccine this season?: No Anesthesia experience/problems:: nac Other Surgeries: Yes: Cholecystectomy, Dilation and Curettage, Hernia Repair, Tubal Ligation, Other Amputation: No Fractures: No - *Social History Smoking Status: Current every day smoker Tobacco Type: cigarettes # Packs/Day (cigarettes): 35 Alcohol Intake: never Substance Use Type: marijuana Last Used Substance: hours (ago) *Occupational Status:: retired Housing: other Household Members: spouse *Travel in the last 8 weeks: None Family Hx:: Asthma, Diabetes, Heart Attack, Hyperlipidemia, Hypertension, Stroke
[2019-08-19 07:24] VITALS: O2SAT 96
--- NOTE | 2019-08-19 08:24 | HMH.SCOPE ---
- Procedure: Date: 08/19/19 Procedure Performed:: Total colonoscopy to terminal ileum with polypectomy by snare and biopsy forceps Indications:: Patient is a 49-year-old whom I had seen in March of this year as an inpatient for acute cholecystitis. Is now referred by Dr. Mariano's office for colonoscopy. She describes a 2 or 3-year history of constipation and obstipation for which she may not move her bowels for 3 to 4 days. Been started on Linzess which had somewhat improved her symptoms. She denies any change in diet or medication. She is never had prior colonoscopy. Of note, she states that her brother had colon cancer and had at age 54. Performing Provider:: Pierre Echeverria MD Referring Provider:: Kenroy Mariano MD Sedation:: Propofol Procedure:: Patient was taken to endoscopy procedure room. She was positioned in a lateral decubitus position. Adequate intravenous sedation was achieved with anesthesia titration of propofol. Variable stiffness Olympus colonoscope was inserted via the anus and advanced to the cecum with minimal difficulty due to some floppiness of the sigmoid colon. Ultimately ileocecal valve and appendiceal orifice were clearly identified. Colonoscope was advanced into the terminal ileum which appeared grossly normal. Colonoscope was withdrawn to the colon with careful surveillance. In the left colon, notably the descending colon and proximal sigmoid colon there were a couple small polyps removed with cold cutting snare. There was what appeared to be lymphoid aggregate at the sigmoid colon and biopsy was performed. She had left-sided diverticulosis with pronounced sigmoid diverticuli. In the rectum there were several hyperplastic appearing polyps removed with cold biopsy forceps. Retroflexion within the rectum revealed no evidence of any pathologic internal hemorrhoids. Colonoscope was withdrawn. Findings:: Diverticulosis Polyps Recommendations:: Pending pathology likely repeat colonoscopy within 3 years Complications:: None immediately apparent Estimated blood obtained (mL): 3
[2019-08-19 08:25] VITALS: BP 120/68; PULSE 77; RESP 16; TEMP 36.4; O2SAT 93
[2019-08-19 08:35] VITALS: BP 114/63; PULSE 78; RESP 16; TEMP 36.4; O2SAT 97
[2019-08-19 08:45] VITALS: BP 113/75; PULSE 84; RESP 16; TEMP 36.4; O2SAT 97
[2019-08-19 08:55] VITALS: BP 133/80; PULSE 84; RESP 16; TEMP 36.4; O2SAT 98
== END 2019-08-19 08:55 | disposition home or self-care (01) ==
LOC: OUTP 06:06
PROVIDERS: PCP Internal Medicine Adolescent Medicine; Visit Provider Surgery
PROC: 0DJD8ZZ Inspection of Lower Intestinal Tract, Via Natural or Artificial Opening Endoscopic (ICD-10-PCS; CPT 45385; principal; 2019-08-19 07:30)
DX: K57.30 Diverticulosis of large intestine without perforation or abscess without bleeding; K63.5 Polyp of colon; Z12.11 Encounter for screening for malignant neoplasm of colon; Z80.0 Family history of malignant neoplasm of digestive organs; Z88.0 Allergy status to penicillin; Z88.2 Allergy status to sulfonamides; Z79.899 Other long term (current) drug therapy; J45.909 Unspecified asthma, uncomplicated; K21.9 Gastro-esophageal reflux disease without esophagitis; E78.5 Hyperlipidemia, unspecified; I10 Essential (primary) hypertension; Z90.49 Acquired absence of other specified parts of digestive tract
CPT/HCPCS: 45385; 45380

== ENCOUNTER 2019-12-01 22:51 | Emergency (ER) | payer OTHER, SELFPAY ==
[2019-12-01 22:52] VITALS: BP 102/54; PULSE 79; RESP 15; TEMP 36.8; O2SAT 98; BMI 41.3
--- NOTE | 2019-12-01 23:23 | HMH.EDWNDL ---
ED Disposition Clinical Impression: Laceration Disposition: Home, Self-Care Condition on Discharge: Good Instructions: DI for Laceration Repair Additional Instructions: sutures out 10 days and recheck if any problems Prescriptions: cephALEXin [Keflex 500mg Cap] 500 mg PO TID #30 cap Transmission Status: Pending to [id number] Referrals: Kenroy Mariano MD [Primary Care Provider] - Forms: Work/School Release - Critical Care Critical Care Time: No Attestation: On 12/01/19, the high probability of a clinically significant, sudden or life threatening deterioration of the following system(s) required my full and direct attention, intervention and personal management. The time I documented below is in addition to time spent performing reported procedures but includes the following listed in this critical care notation. Medical Decision Making - Medical Records Medical records reviewed: Yes: I reviewed the patient's medical records. - Marcio Inquiry Pt receiving controlled substance: No Vital Signs: 12/01/19 22:52 Temperature 98.2 F Temperature Source Oral Pulse Rate [Right Brachial] 79 Respiratory Rate 15 Blood Pressure [Right Arm] 102/54 L Blood Pressure Mean [Right Arm] 70 Blood Pressure Source [Right Arm] Automatic Cuff Blood Pressure Position [Right Arm] Sitting 02 Sat by Pulse Oximetry 98 Oxygen Delivery Method Room Air Orders (Tests/Meds): ED MEDICATIONS Discontinued Medications Generic Name Dose Route Start Last Admin Trade Name Aixa PRN Reason Stop Dose Admin Acetaminophen/Codeine Phosphate 1 shawn 12/01/19 23:16 12/01/19 23:19 Acetaminophen W/Codeine #3 Take Home Pack (6) PO 12/01/19 23:17 1 shawn ONCE ONE Administration Cephalexin HCl 500 mg 12/01/19 23:16 12/01/19 23:19 Cephalexin 500mg Capsule PO 12/01/19 23:17 500 mg ONCE ONE Administration Protocol Tetanus/Diphtheria Toxoids 0.5 ml 12/01/19 23:04 12/01/19 23:05 Tenivac 0.5ml Syringe IM 12/01/19 23:05 0.5 ml .ONCE ONE Administration Wound/Laceration HPI - General Chief Complaint: Wound/Laceration Stated Complaint: AO 0921@1030 Lac L Little finger Time Seen by Provider: 12/01/19 23:10 Mode of Arrival: Family Vehicle Source of Information: Patient, Medical Record Limitations: No Limitations Description of Symptoms (Recalled from ER Triage Doc. by RN): left 5th digit laceration. pt states she was cutting a cantelope with a newly sharpened knife, and cut it to the bone . pt has residual issues with it anyway, due to a break 3-4 years ago. no other complaints - History of Present Illness HPI narrative: lac lt fifth finger Onset (ago): hour(s) Extremity Location: Left: hand Place: home Patient tetanus UTD: No Context: sharp object use Associated symptoms: none - Related Data Home Medications Medication Instructions Recorded Confirmed Atorvastatin Calcium [Lipitor 40mg 40 mg PO DAILY 03/16/19 09/12/19 Tab] Cyclobenzaprine HCl 10 mg PO BIDP PRN 03/16/19 09/12/19 [Cyclobenzaprine 10mg Tab*] Triamterene/Hydrochlorothiazid 1 each PO DAILY 03/17/19 09/12/19 [Dyazide 37.5-25 Capsule] fluticasone propionate 50 50 mcg INTRANASAL DAILY 07/25/19 09/12/19 mcg/actuation nasal spray,suspension Previous Rx's Medication Instructions Recorded cephALEXin [Keflex 500mg Cap] 500 mg PO TID #30 cap 12/01/19 Allergies Allergy/AdvReac Type Severity Reaction Status Date / Time Penicillins Allergy Unknown Verified 09/12/19 09:00 allergy reaction Sulfa (Sulfonamide Allergy Unknown Verified 09/12/19 09:00 Antibiotics) allergy reaction [facility] History - Hepatitis A Screen Drug use history?: No High risk sexual behaviors?: No History of sexually transmitted infection?: No Currently employed?: No Childcare worker?: No Do you have indoor plumbing?: Yes Do you have electricity?: Yes Attestation statement:: This patient has b
[2019-12-01 23:24] VITALS: BP 110/57; PULSE 81; RESP 14; TEMP 36.8; O2SAT 98
== END 2019-12-01 23:33 | disposition home or self-care (01) ==
PROVIDERS: Emergency Provider Emergency Medicine; PCP Internal Medicine Adolescent Medicine
DX: S61.217A Laceration without foreign body of left little finger without damage to nail, initial encounter (principal); W26.0XXA Contact with knife, initial encounter; Y92.019 Unspecified place in single-family (private) house as the place of occurrence of the external cause; Z23 Encounter for immunization; K21.9 Gastro-esophageal reflux disease without esophagitis; E78.5 Hyperlipidemia, unspecified; I10 Essential (primary) hypertension; F17.210 Nicotine dependence, cigarettes, uncomplicated
CPT/HCPCS: 12001; 90471; 90714; 99282

== ENCOUNTER → 2019-12-09 12:41 | Outpatient (CLI) | payer OTHER, SELFPAY ==
--- NOTE | 2019-12-09 12:49 | XR_ITS ---
PROCEDURE: XR FINGER LT MIN 2V CLINICAL INDICATION: CELLULITIS OF LT LITTLE FINGER COMPARISON: No exams were available for comparison FINDINGS: No fracture or dislocation. No lytic or blastic change. There is normal mineralization. The joint spaces are well-preserved. No significant degenerative/arthritic changes. No erosive changes evident. Other findings:None. IMPRESSION: No acute findings. Dictated by: Dustin Maxwell MD 12/09/2019 14:07 Dustin Maxwell MD in [place] 12/09/2019 14:07
== END ==
PROVIDERS: PCP Internal Medicine Adolescent Medicine; Visit Provider Internal Medicine Adolescent Medicine
DX: L03.012 Cellulitis of left finger (principal)
CPT/HCPCS: 73140

== ENCOUNTER → 2020-07-26 13:04 | Outpatient (CLI) | payer OTHER, SELFPAY ==
[2020-07-26 13:50] LABS: Basophils # 0.1 K/mm3 (0-0.2); Basophils % 0.6 % (0.1-2.0); Eosinophils # 0.1 K/mm3 (0.0-0.4); Eosinophils % 1.4 % (0.1-12.0); Hematocrit 42.7 % (37.0-47.0); Hemoglobin 13.6 g/dL (12.2-16.2); Lymphocytes # 3.7 K/mm3 (0.7-4.5); Lymphocytes % 41.5 % (10-50); Mean Corpuscular HGB Conc 31.7 g/dL (31.8-35.4); Mean Corpuscular Hemoglobin 28.5 pg (27.0-31.2); Mean Corpuscular Volume 89.7 fl (81-99); Mean Platelet Volume 8.8 fl (7.4-10.4); Monocytes # 0.5 K/mm3 (0.1-1.0); Monocytes % 5.3 % (1.7-9.3); Neutrophils # 4.6 K/mm3 (1.8-7.8); Neutrophils % 51.2 % (37.0-80.0); Platelet Count 323 K/mm3 (142-424); Red Blood Count 4.76 M/mm3 (4.20-5.40); Red Cell Distribution Width 14.1 % (11.5-17.5)
[2020-07-26 14:26] LABS: Alanine Aminotransferase 30 U/L (12-78); Albumin Level 4.2 g/dl (3.5-5.0); Albumin/Globulin Ratio 1.5 (1.1-1.8); Alkaline Phosphatase 121 U/L (38-126); Anion Gap 7.2 mEq/L (5-15); Aspartate Amino Transferase 32 U/L (14-36); Bilirubin,Total 0.9 mg/dl (0.2-1.3); Blood Urea Nitrogen 13 mg/dl (7-17); Calcium 9.5 mg/dl (8.4-10.2); Carbon Dioxide 27 mmol/L (22.0-30.0); Chloride 107 mmol/L (98-107); Chol/HDL Ratio 3.3 (1-3.5); Cholesterol 192 mg/dl (140-200); Estimated Glomerular Filt Rate 88 ml/min (>60); GFR (African American) 107 ML/MIN (>60); Globulin 2.8 g/dL (1.3-3.2); Glucose 91 mg/dl (74-100); HDL Cholesterol 58 mg/dl (40-60); Potassium 4.2 mmoL/L (3.5-5.1); Sodium 137 mmol/L (136-145); Triglycerides 72 mg/dl (30-150); VLDL Cholesterol 14 mg/dL (0-40)
[2020-07-26 14:36] LABS: C-Reactive Protein 22.2 mg/L (0-4); Direct LDL Cholesterol 102.46 mg/dL (100-129)
[2020-07-26 14:42] LABS: 25-OH Vitamin D, Total 19.2 ng/mL (30-100)
[2020-07-26 14:43] LABS: Erythrocyte Sedimentation Rate 48 mm/hr (0-30)
[2020-07-26 15:18] LABS: Vitamin B12 481 pg/mL (239-931)
[2020-07-29 13:12] LABS: Anti-Centromere B Antibodies <0.2 AI (0.0-0.9); Anti-Jo-1 <0.2 AI (0.0-0.9); Anti-Smith Antibody <0.2 AI (0.0-0.9); Antichromatin Antibodies <0.2 AI (0.0-0.9); Antiscleroderma-70 Antibodies <0.2 AI (0.0-0.9); RNP Antibodies <0.2 AI (0.0-0.9); Sjogren's Anti-SS-A <0.2 AI (0.0-0.9); Sjogren's Anti-SS-B <0.2 AI (0.0-0.9)
[2020-07-29 13:30] LABS: Anti-DNA (DS) Ab Qn 2 IU/mL (0-9)
[2020-07-30 04:27] LABS: Anti-Cyclic Citrullinated Pept 4 units (0-19)
== END ==
PROVIDERS: Internal Medicine Adolescent Medicine; Visit Provider Nurse Practitioner Family
DX: Z00.00 Encounter for general adult medical examination without abnormal findings (principal); I10 Essential (primary) hypertension; E78.5 Hyperlipidemia, unspecified; E55.9 Vitamin D deficiency, unspecified; E53.8 Deficiency of other specified B group vitamins; M25.50 Pain in unspecified joint; R70.0 Elevated erythrocyte sedimentation rate
CPT/HCPCS: 36415; 80053; 80061; 82306; 82607; 85025; 85651; 86038; 86140; 86200; 86225; 86235; 86431

== ENCOUNTER → 2020-12-01 08:23 | Outpatient (CLI) | payer OTHER, SELFPAY ==
[2020-12-01 14:16] LABS: Alanine Aminotransferase 31 U/L (12-78); Albumin Level 3.8 g/dl (3.5-5.0); Albumin/Globulin Ratio 1.3 (1.1-1.8); Alkaline Phosphatase 97 U/L (38-126); Anion Gap 13.4 mEq/L (5-15); Aspartate Amino Transferase 34 U/L (14-36); Bilirubin,Total 0.5 mg/dl (0.2-1.3); Blood Urea Nitrogen 16 mg/dl (7-17); Carbon Dioxide 26 mmol/L (22.0-30.0); Chloride 105 mmol/L (98-107); Chol/HDL Ratio 2.4 (1-3.5); Cholesterol 136 mg/dl (140-200); Estimated Glomerular Filt Rate 76 ml/min (>60); GFR (African American) 92 ML/MIN (>60); Globulin 2.9 g/dL (1.3-3.2); Glucose 96 mg/dl (74-100); HDL Cholesterol 56 mg/dl (40-60); Potassium 4.4 mmoL/L (3.5-5.1); Sodium 140 mmol/L (136-145); Total Protein,Serum 6.7 g/dl (6.3-8.2); Triglycerides 77 mg/dl (30-150); VLDL Cholesterol 15 mg/dL (0-40)
[2020-12-01 14:22] LABS: Basophils # 0.1 K/mm3 (0-0.2); Basophils % 0.7 % (0.1-2.0); Eosinophils # 0.3 K/mm3 (0.0-0.4); Eosinophils % 2.7 % (0.1-12.0); Hematocrit 42.2 % (37.0-47.0); Hemoglobin 13.9 g/dL (12.2-16.2); Lymphocytes # 3.1 K/mm3 (0.7-4.5); Mean Corpuscular HGB Conc 33.1 g/dL (31.8-35.4); Mean Corpuscular Hemoglobin 30.5 pg (27.0-31.2); Mean Corpuscular Volume 92.2 fl (81-99); Mean Platelet Volume 10.5 fl (7.4-10.4); Monocytes # 0.4 K/mm3 (0.1-1.0); Monocytes % 4.8 % (1.7-9.3); Neutrophils # 5.5 K/mm3 (1.8-7.8); Neutrophils % 58.9 % (37.0-80.0); Platelet Count 337 K/mm3 (142-424); Red Blood Count 4.57 M/mm3 (4.20-5.40); Red Cell Distribution Width 14.3 % (11.5-17.5); White Blood Count 9.3 K/mm3 (4.8-10.8)
[2020-12-01 14:27] LABS: Direct LDL Cholesterol 57.44 mg/dL (100-129)
[2020-12-01 14:34] LABS: 25-OH Vitamin D, Total 33.6 ng/mL (30-100)
== END ==
PROVIDERS: Visit Provider Nurse Practitioner Family
DX: Z00.00 Encounter for general adult medical examination without abnormal findings (principal); R10.31 Right lower quadrant pain; E55.9 Vitamin D deficiency, unspecified
CPT/HCPCS: 36415; 80053; 80061; 82306; 85025

== ENCOUNTER → 2021-05-27 07:14 | Outpatient (CLI) | payer OTHER, SELFPAY ==
--- NOTE | 2021-05-27 07:19 | CT_ITS ---
FINAL REPORT CLINICAL HISTORY: CURRENT SMOKER FINDINGS: Low-Dose Chest CT CTDI vol (mGy): 2.90 DLP (mGy-cm): 104.20 Axial images were obtained from the lung apex to the mid abdomen by computed tomography. Low-dose protocol was utilized. FINDINGS: CHEST: There is no axillary adenopathy. There is no hilar or mediastinal adenopathy. The heart is proper size. There is no pericardial or pleural effusion. There is moderate coronary artery calcification. Limited images of the upper abdomen demonstrate changes from cholecystectomy. Lung window images demonstrate several small pulmonary nodules. There is a 3 mm left upper lobe nodule on image 23. There is a 3 mm posterior right upper lobe nodule on image 21. There are multiple other less than 5 mm nodules. There are several calcified granulomas. IMPRESSION: Lung RADS category 2. Recommend 12 month follow-up low-dose chest CT. Reviewed, Interpreted and Dictated by Pierre Summers III, MD Transcribed by William Forbes Authenticated by Pierre Summers III, MD on 05/27/2021 09:16:04 AM [facility]
--- NOTE | 2021-05-27 07:20 | MM_ITS ---
PROCEDURE INFORMATION: Exam: MG Bilateral Screening 3D Mammography Exam date and time: 05/27/2021 7:58 AM Age: 50 years old Clinical indication: Encounter for screening mammogram for malignant neoplasm of breast TECHNIQUE: Imaging protocol: Bilateral Screening tomosynthesis and 2D mammography including computer-aided detection (CAD) when performed. COMPARISON: MG MM DIG SCREENING MAMM BI W/CAD 07/25/2019 10:28 AM FINDINGS: MAMMOGRAPHY: Breast composition: The breasts are almost entirely fatty. Mass: None. Architectural distortion: None. Calcifications: No suspicious calcifications. Asymmetric density: None. Skin thickening: None. Axillary adenopathy: None. IMPRESSION: No mammographic evidence of malignancy. Annual screening is recommended unless otherwise clinically indicated. ASSESSMENT: BI-RADS Category 1: Negative
== END ==
PROVIDERS: PCP Internal Medicine Adolescent Medicine; Visit Provider Nurse Practitioner Family
DX: Z12.31 Encounter for screening mammogram for malignant neoplasm of breast (principal); Z87.891 Personal history of nicotine dependence; Z12.2 Encounter for screening for malignant neoplasm of respiratory organs
CPT/HCPCS: 71271; 77063; 77067

== ENCOUNTER 2021-07-24 16:33 | Observation (INO) | payer OTHER, SELFPAY ==
[2021-07-24 17:35] VITALS: BP 151/84; PULSE 76; RESP 18; TEMP 37.1; O2SAT 97; BMI 36.8
--- NOTE | 2021-07-24 17:55 | XR_ITS ---
PROCEDURE INFORMATION: Exam: XR Chest Exam date and time: 07/24/2021 5:54 PM Age: 51 years old Clinical indication: Shortness of breath TECHNIQUE: Imaging protocol: XR of the chest. Views: 2 views. COMPARISON: CR XR CHEST PORTABLE 03/16/2019 5:46 PM FINDINGS: Airway: Patent Lungs: There are multiple punctate pulmonary parenchymal calcifications, consistent with remote granulomatous organism exposure. No acute interstitial or airspace disease. Pleural spaces: Unremarkable. No pleural effusion. No pneumothorax. Heart/Mediastinum: Unremarkable. No cardiomegaly. Bones/joints: No acute skeletal abnormality or aggressive osseous lesion. IMPRESSION: No acute thoracic pathology.
--- NOTE | 2021-07-24 17:55 | ECG_ITS ---
APPROVED REPORT Exam: Resting ECG HR:72 bpm ECG Measurements Heart Rate 72 AXES GA 148 P 0 QRSd 95 QRS 91 QT 399 T 85 QTc 423 Conclusion SINUS RHYTHM BORDERLINE RIGHT AXIS DEVIATION [QRS AXIS > 90] MODERATE ST DEPRESSION [0.05+ mV ST DEPRESSION] ABNORMAL ECG UNCONFIRMED REPORT Electronically signed by : Kenroy Mariano MD 07/25/2021 15:49:16
--- NOTE | 2021-07-24 18:01 | PC.NURSE ---
patient to radiology by wheelchair with cardiac cath technologist
--- NOTE | 2021-07-24 18:09 | HMH.EDGENADL ---
ED Disposition Clinical Impression: Dehydration Asthma with exacerbation Qualifiers: Asthma severity: moderate Asthma persistence: persistent Qualified Code(s): J45.41 - Moderate persistent asthma with (acute) exacerbation Acute bronchitis Qualifiers: Bronchitis organism: unspecified organism Qualified Code(s): J20.9 - Acute bronchitis, unspecified Disposition: Admitted as Observation Condition on Discharge: Fair Referrals: Kenroy Mariano MD [Primary Care Provider] - - Critical Care Critical Care Time: No Attestation: On 07/24/21, the high probability of a clinically significant, sudden or life threatening deterioration of the following system(s) required my full and direct attention, intervention and personal management. The time I documented below is in addition to time spent performing reported procedures but includes the following listed in this critical care notation. Medical Decision Making - Marcio Inquiry Pt receiving controlled substance: No Vital Signs: 07/24/21 17:35 Temperature 98.7 F Temperature Source Oral Pulse Rate [Left Radial] 76 Respiratory Rate 18 Blood Pressure [Right Arm] 151/84 H Blood Pressure Mean [Right Arm] 106 02 Sat by Pulse Oximetry 97 Oxygen Delivery Method Room Air - Lab Data Lab Results 07/24/21 18:25: SARS-CoV-2 (PCR) Not detected, Influenza A Untype (PCR) Not detected, Influenza Type B (PCR) Not detected 07/24/21 18:38: WBC 17.1 H, RBC 4.90, Hgb 15.0, Hct 42.9, MCV 87.6, MCH 30.5, MCHC 34.8, RDW 13.8, Plt Count 399, MPV 9.0, Neut % (Auto) 63.7, Lymph % (Auto) 29.5, [place] % (Auto) 4.5, Eos % (Auto) 0.6, Baso % (Auto) 1.7, Neut # (Auto) 10.9 H, Lymph # (Auto) 5.1 H, [place] # (Auto) 0.8, Eos # (Auto) 0.1, Baso # (Auto) 0.3 H, Total Counted 100, Neutrophils % (Manual) 71, Lymphocytes % (Manual) 28, Monocytes % (Manual) 1 L, Platelet Estimate Normal, RBC Morphology Normal 07/24/21 18:38: Sodium 136, Potassium 3.1 L, Chloride 101, Carbon Dioxide 25, Anion Gap 13.1, BUN 23 H, Creatinine 1.30 H, Estimated Creat Clear 71, Estimated GFR 43 L, Est GFR ( Amer) 52 L, Glucose 117 H, Calcium 10.3 H, Total Bilirubin 1.0, AST 33, ALT 33, Alkaline Phosphatase 140 H, Total Protein 7.7, Albumin 4.3, Globulin 3.4 H, Albumin/Globulin Ratio 1.3 07/24/21 18:38: Lactate 1.4 07/24/21 18:53: Urine Color Yellow, Urine Appearance Clear, Urine pH 6.0, Ur Specific [place] 1.010, Urine Protein Negative, Urine Glucose (UA) Negative, Urine Ketones Negative, Urine Blood Negative, Urine Nitrate Negative, Urine Bilirubin Negative, Urine Urobilinogen 0.2, Ur Leukocyte Esterase Negative, Urine WBC Occasional Result diagrams: 07/24/21 18:38 07/24/21 18:38 Orders (Tests/Meds): ED MEDICATIONS Generic Name Dose Route Start Last Admin Trade Name Freq PRN Reason Stop Dose Admin Albuterol/Ipratropium 3 ml 07/24/21 20:00 07/24/21 18:59 Ipratropium/Albuterol 3 Ml Neb IH 08/23/21 19:59 3 ml QIDRT MORELIA Administration Levofloxacin/Dextrose 750 mg in 150 mls @ 100 mls/hr 07/24/21 18:45 07/24/21 19:10 Levofloxacin 750mg/150ml Premix IV 08/07/21 18:44 100 mls/hr Q24H MORELIA Administration Methylprednisolone Sodium Succinate 80 mg 07/24/21 18:30 07/24/21 18:59 Methylprednisolone Sod Succ 125mg Vial IV 08/23/21 18:29 80 mg Q8H MORELIA Administration Sodium Chloride 10 ml 07/24/21 17:56 Sodium Chloride 0.9% 10ml Flush Syringe IV 08/23/21 17:55 NEEDED PRN Maintain IV Site ORDERS Category Date Time Status Full Resp Panel w/COVID ([facility]) Routine Lab 07/24/21 18:25 Received Blood Culture Stat Micro 07/24/21 18:44 Received - Radiology Data #1 Image(s): Chest Image Reviewed: Yes I reviewed the patient's radiology image, Yes I have reviewed radiologist's interpretation Preliminary Findings: Normal/NAD PROCEDURE INFORMATION: Exam: XR Chest Exam date and time: 07/24/2021 5:54 PM Age: 51 years old Clinical indication: Shortness of breath TECHNIQUE
--- NOTE | 2021-07-24 18:26 | PC.NURSE ---
patients covid/flu swab sent to lab
[2021-07-24 18:32] LABS: Coronavirus 19, PCR Not Detected (NotDetected); Influenza A, PCR Not Detected (NotDetected); Influenza B, PCR Not Detected (NotDetected)
[2021-07-24 18:38] LABS: Adenovirus,PCR Not Detected (NotDetected); Bordetella Pertussis Not Detected (NotDetected); Chlamydophila Pneumoniae, PCR Not Detected (NotDetected); Coronavirus 19, PCR Not Detected (NotDetected); Coronavirus 229E Not Detected (NotDetected); Coronavirus NL63 Not Detected (NotDetected); Coronavirus OC43 Not Detected (NotDetected); Coronovirus HKU1,PCR Not Detected (NotDetected); Human Metapneumovirus Not Detected (NotDetected); Influenza A, PCR Not Detected (NotDetected); Influenza AH1, 2009 Not Detected (NotDetected); Influenza AH1, PCR Not Detected (NotDetected); Influenza AH3,PCR Not Detected (NotDetected); Influenza B, PCR Not Detected (NotDetected); Mycoplasma Pneumoniae, PCR Not Detected (NotDetected); Parainfluenza 1, PCR Not Detected (NotDetected); Parainfluenza 2, PCR Not Detected (NotDetected); Parainfluenza 3, PCR Not Detected (NotDetected); Parainfluenza 4, PCR Not Detected (NotDetected); Respiratory Syncytial Virus Not Detected (NotDetected); Rhinovirus/Enterovirus Not Detected (NotDetected)
--- NOTE | 2021-07-24 18:38 | PC.NURSE ---
MADDI Young at BS
[2021-07-24 18:55] LABS: Basophils # 0.3 K/mm3 (0-0.2); Basophils % 1.7 % (0.1-2.0); Eosinophils # 0.1 K/mm3 (0.0-0.4); Eosinophils % 0.6 % (0.1-12.0); Hematocrit 42.9 % (37.0-47.0); Lymphocytes # 5.1 K/mm3 (0.7-4.5); Lymphocytes % 29.5 % (10-50); Mean Corpuscular HGB Conc 34.8 g/dL (31.8-35.4); Mean Corpuscular Hemoglobin 30.5 pg (27.0-31.2); Mean Corpuscular Volume 87.6 fl (81-99); Monocytes # 0.8 K/mm3 (0.1-1.0); Monocytes % 4.5 % (1.7-9.3); Neutrophils # 10.9 K/mm3 (1.8-7.8); Neutrophils % 63.7 % (37.0-80.0); Platelet Count 399 K/mm3 (142-424); Red Cell Distribution Width 13.8 % (11.5-17.5); White Blood Count 17.1 K/mm3 (4.8-10.8)
[2021-07-24 18:57] LABS: Chloride 101 mmol/L (98-107); Potassium 3.1 mmoL/L (3.5-5.1); Sodium 136 mmol/L (136-145)
[2021-07-24 18:58] LABS: Microscopic, Urine URINE MICROSCOPIC (MICROSCOPIC)
[2021-07-24 18:58] LABS: MANUAL DIFFERENTIAL MANUAL DIFFERENTIAL (MANUAL DIFF)
[2021-07-24 18:59] LABS: Alanine Aminotransferase 33 U/L (12-78); Aspartate Amino Transferase 33 U/L (14-36); Blood Urea Nitrogen 23 mg/dl (7-17); Creatinine Clearance Estimated 71 mL/min (50-200); Estimated Glomerular Filt Rate 43 ml/min (>60); GFR (African American) 52 ML/MIN (>60); Lactic Acid 1.4 mmol/L (0.7-2.1)
[2021-07-24 19:00] LABS: Albumin Level 4.3 g/dl (3.5-5.0); Albumin/Globulin Ratio 1.3 (1.1-1.8); Alkaline Phosphatase 140 U/L (38-126); Anion Gap 13.1 mEq/L (5-15); Calcium 10.3 mg/dl (8.4-10.2); Carbon Dioxide 25 mmol/L (22.0-30.0); Globulin 3.4 g/dL (1.3-3.2); Glucose 117 mg/dl (74-100); Total Protein,Serum 7.7 g/dl (6.3-8.2)
[2021-07-24 19:07] LABS: Appearance,Urine CLEAR (Clear); Bilirubin,Urine Negative (Negative); Blood, Urine Negative (Negative); Color,Urine YELLOW (Yellow); Glucose,Urine (UA) Negative (Negative); Ketones,Urine Negative (Negative); Leukocyte Esterase,Urine Negative (Negative); Nitrate,Urine Negative (Negative); Protein,Urine Negative (Negative); Urobilinogen,Urine 0.2 EU/dl (0.2)
[2021-07-24 19:12] LABS: Lymphocytes % 28 % (10-50); Monocytes % 1 % (2-9); Neutrophils % 71 % (42-76); Platelet Estimate Normal; RBC Morphology Normal; Total Cells Counted 100
[2021-07-24 19:23] LABS: WBC,Urine Occasional #/hpf (0-3)
--- NOTE | 2021-07-24 19:45 | PC.NURSE ---
Talley catheter removed per md request. 600cc of pale yellow urine noted.
--- NOTE | 2021-07-24 19:45 | PC.NURSE ---
Patient admitted to [address] [place] [address] with Asthma, bronchitis and dehydration.
[2021-07-24 20:06] VITALS: BMI 36.8
[2021-07-24 20:23] VITALS: BP 141/73; PULSE 74; RESP 16; TEMP 37.1; O2SAT 98
--- NOTE | 2021-07-24 20:50 | PC.NURSE ---
patient up to floor via wheelchair @ this time
[2021-07-24 21:59] VITALS: O2SAT 97
[2021-07-25 03:57] VITALS: BP 117/64; PULSE 69; RESP 16; TEMP 36.6; O2SAT 96
[2021-07-25 05:00] VITALS: BMI 36.8
[2021-07-25 05:54] VITALS: PULSE 72; PULSE 76; O2SAT 95
[2021-07-25 06:43] LABS: Anion Gap 13.4 mEq/L (5-15); Blood Urea Nitrogen 25 mg/dl (7-17); Calcium 9.2 mg/dl (8.4-10.2); Carbon Dioxide 25 mmol/L (22.0-30.0); Chloride 102 mmol/L (98-107); Creatinine Clearance Estimated 84 mL/min (50-200); Estimated Glomerular Filt Rate 52 ml/min (>60); GFR (African American) 63 ML/MIN (>60); Glucose 179 mg/dl (74-100); Potassium 3.4 mmoL/L (3.5-5.1); Sodium 137 mmol/L (136-145)
--- NOTE | 2021-07-25 07:16 | HMH.PHAVTE ---
[facility] VTE Monitoring - Patient Demographics Admission date: 07/24/21 Report Date: 07/25/21 Time: 07:16 Allergies/Adverse Reactions: Patient Allergies Penicillins Allergy (Verified 09/12/19 09:00) Unknown allergy reaction Sulfa (Sulfonamide Antibiotics) Allergy (Verified 09/12/19 09:00) Unknown allergy reaction Height: 1.55 m Weight: 88.451 kg Patient Problems: Current Active Problems Asthma with exacerbation (Acute) Acute bronchitis (Acute) Dehydration (Acute) - VTE Risk Labs: VTE Related Lab Results Hgb 15.0 g/dL (12.2-16.2) 07/24/21 18:38 Hct 42.9 % (37.0-47.0) 07/24/21 18:38 Plt Count 399 K/mm3 (142-424) 07/24/21 18:38 BUN 25 mg/dl (7-17) H 07/25/21 06:07 Creatinine 1.10 mg/dl (0.52-1.04) H 07/25/21 06:07 Estimated Creat Clear 84 mL/min (50-200) 07/25/21 06:07 - Prophylaxis VTE Prophylaxis Ordered?: Yes Types of VTE Prophylaxis: TEDS Knee High Location of Applied Device: Bilateral Lower Extremeties
[2021-07-25 08:00] VITALS: BP 143/83; PULSE 87; RESP 19; TEMP 36.6; O2SAT 97
--- NOTE | 2021-07-25 08:51 | HMH.HPDC ---
General - General Admission date:: 07/24/21 Discharge date: 07/25/21 *Admission Date: 07/24/21 *Chief complaint: Wheezing and shortness of air *History of present illness: 51-year-old white female with history of asthma with frequent exacerbations who came to the emergency department with asthma exacerbation, wheezing and shortness of air. ER work-up showed clear chest x-ray, minimal leukocytosis. Patient treated with IV steroids and nebs in the ER but did not improve to allow discharge and was admitted overnight for treatment of her ongoing wheezing and shortness of air. [facility] History I have reviewed the patient's past medical history: Yes Medical History: Reports:: Asthma, Gastroesophageal Reflux Disease(GERD), Hyperlipidemia, Hypertension Denies:: Cancer, Diabetes Mellitus Type 1, Diabetes Mellitus Type 2, Internal Pacemaker, MRSA, Seizures *Have you ever received a pneumonia vaccine?: No *Have you received a flu vaccine this season?: No Other Surgeries: Yes: Cholecystectomy, Colonoscopy, Dilation and Curettage, Hernia Repair, Tubal Ligation, Other. No: Pacemaker Amputation: No Fractures: No - *Social History Last grade of school completed: High school graduate Smoking Status: Current every day smoker Tobacco Type: cigarettes # Packs/Day (cigarettes): 1 Alcohol Intake: never Substance Use Type: marijuana *Occupational Status:: unemployed Housing: other Household Members: spouse *Travel in the last 8 weeks: None Family Hx:: Asthma, Diabetes, Heart Attack, Hyperlipidemia, Hypertension, Stroke Review of Systems - Review of Systems Review of systems:: pertinent systems reviewed and negative unless documented below Exam Vital signs and Labs for Last 24 Hours: Temp Pulse Resp BP Pulse Ox 97.9 F 87 19 143/83 H 97 07/25/21 08:00 07/25/21 08:00 07/25/21 08:00 07/25/21 08:00 07/25/21 08:00 Laboratory Results - last 24 hr 07/24/21 18:25: SARS-CoV-2 (PCR) Not detected, Influenza A Untype (PCR) Not detected, Influenza Type B (PCR) Not detected 07/24/21 18:25: Chlamy pneumoniae PCR Not detected, Adenovirus (PCR) Not detected, B. pertussis DNA (PCR) Not detected, Coronavirus OC43 (PCR) Not detected, Coronavirus HKU1 (PCR) Not detected, Coronavirus 229E (PCR) Not detected, SARS-CoV-2 (PCR) Not detected, Coronavirus NL63 (PCR) Not detected, Human Metapneumovir PCR Not detected, Influenza A (H1) PCR Not detected, Influ A (H1N1/09) PCR Not detected, Influenza A (H3) PCR Not detected, Influenza Type A (PCR) Not detected, Influenza Type B (PCR) Not detected, M. pneumoniae (PCR) Not detected, Parainfluenza 1 (PCR) Not detected, Parainfluenza 2 (PCR) Not detected, Parainfluenza 3 (PCR) Not detected, Parainfluenza 4 (PCR) Not detected, RSV (PCR) Not detected, Entero/Rhino (PCR) Not detected 07/24/21 18:38: WBC 17.1 H, RBC 4.90, Hgb 15.0, Hct 42.9, MCV 87.6, MCH 30.5, MCHC 34.8, RDW 13.8, Plt Count 399, MPV 9.0, Neut % (Auto) 63.7, Lymph % (Auto) 29.5, [place] % (Auto) 4.5, Eos % (Auto) 0.6, Baso % (Auto) 1.7, Neut # (Auto) 10.9 H, Lymph # (Auto) 5.1 H, [place] # (Auto) 0.8, Eos # (Auto) 0.1, Baso # (Auto) 0.3 H, Total Counted 100, Neutrophils % (Manual) 71, Lymphocytes % (Manual) 28, Monocytes % (Manual) 1 L, Platelet Estimate Normal, RBC Morphology Normal 07/24/21 18:38: Sodium 136, Potassium 3.1 L, Chloride 101, Carbon Dioxide 25, Anion Gap 13.1, BUN 23 H, Creatinine 1.30 H, Estimated Creat Clear 71, Estimated GFR 43 L, Est GFR ( Amer) 52 L, Glucose 117 H, Calcium 10.3 H, Total Bilirubin 1.0, AST 33, ALT 33, Alkaline Phosphatase 140 H, Total Protein 7.7, Albumin 4.3, Globulin 3.4 H, Albumin/Globulin Ratio 1.3 07/24/21 18:38: Lactate 1.4 07/24/21 18:53: Urine Color Yellow, Urine Appearance Clear, Urine pH 6.0, Ur Specific [place] 1.010, Urine Protein Negative, Urine Glucose (UA) Negative, Urine Ketones Negative, Urine Blood Negative, Urine Nitrate Negative, Urine Bilirubin Negative, Urine Urobilinogen 0.2, Ur Leukocyte Esterase Negative, Uri
--- NOTE | 2021-07-25 09:38 | PC.NURSE ---
Discharge instructions given to pt by Duncan FRANCOIS under supervision of this RN-all questions answered and pt verbalized understanding. PIV removed and pt will let us know when she is ready to leave the floor.
--- NOTE | 2021-07-25 10:14 | CARE MANAGER ---
Patient needs nebulizer machine and requests to use [facility]. Faxed information with order for this. MADDI Vo
--- NOTE | 2021-07-28 13:45 | CARE MANAGER ---
Attempted to contact patient x3 related to follow up from hospital discharge. Unable to reach patient.
== END 2021-07-25 09:48 | disposition home or self-care (01) ==
LOC: ER 18:41 → 2ND 20:07
PROVIDERS: Admitting Provider Internal Medicine Adolescent Medicine; Emergency Provider Emergency Medicine; PCP Internal Medicine Adolescent Medicine; Visit Provider Internal Medicine Adolescent Medicine
DX: J45.41 Moderate persistent asthma with (acute) exacerbation (principal); J20.9 Acute bronchitis, unspecified; K21.9 Gastro-esophageal reflux disease without esophagitis; I10 Essential (primary) hypertension; E78.5 Hyperlipidemia, unspecified; F17.210 Nicotine dependence, cigarettes, uncomplicated; Z20.822 Contact with and (suspected) exposure to COVID-19
CPT/HCPCS: 36415; 51702; 71046; 80048; 80053; 81001; 83605; 85007; 85025; 87040; 87581; 87632; 87798; 93005; 99285; C9803; G0378; J1956; U0003; U0005

== ENCOUNTER → 2021-09-28 07:50 | Outpatient (CLI) | payer OTHER, SELFPAY ==
[2021-09-28 08:40] LABS: Basophils % 0.5 % (0.1-2.0); Eosinophils # 0.1 K/mm3 (0.0-0.4); Eosinophils % 1.5 % (0.1-12.0); Hematocrit 41.7 % (37.0-47.0); Hemoglobin 13.7 g/dL (12.2-16.2); Lymphocytes # 3.1 K/mm3 (0.7-4.5); Lymphocytes % 36.1 % (10-50); Mean Corpuscular HGB Conc 32.9 g/dL (31.8-35.4); Mean Corpuscular Hemoglobin 29.9 pg (27.0-31.2); Mean Corpuscular Volume 90.9 fl (81-99); Mean Platelet Volume 8.7 fl (7.4-10.4); Monocytes # 0.5 K/mm3 (0.1-1.0); Monocytes % 5.7 % (1.7-9.3); Neutrophils # 4.8 K/mm3 (1.8-7.8); Neutrophils % 56.3 % (37.0-80.0); Platelet Count 301 K/mm3 (142-424); Red Blood Count 4.59 M/mm3 (4.20-5.40); Red Cell Distribution Width 13.6 % (11.5-17.5); White Blood Count 8.5 K/mm3 (4.8-10.8)
[2021-09-28 09:15] LABS: 25-OH Vitamin D, Total 52.4 ng/mL (30-100)
[2021-09-28 09:35] LABS: Alanine Aminotransferase 30 U/L (12-78); Albumin Level 4.1 g/dl (3.5-5.0); Albumin/Globulin Ratio 1.5 (1.1-1.8); Alkaline Phosphatase 105 U/L (38-126); Anion Gap 11.3 mEq/L (5-15); Aspartate Amino Transferase 34 U/L (14-36); Bilirubin,Total 0.4 mg/dl (0.2-1.3); Blood Urea Nitrogen 20 mg/dl (7-17); Calcium 9.4 mg/dl (8.4-10.2); Carbon Dioxide 29 mmol/L (22.0-30.0); Chloride 103 mmol/L (98-107); Chol/HDL Ratio 2.3 (1-3.5); Cholesterol 150 mg/dl (140-200); Estimated Glomerular Filt Rate 66 ml/min (>60); GFR (African American) 80 ML/MIN (>60); Globulin 2.7 g/dL (1.3-3.2); Glucose 99 mg/dl (74-100); HDL Cholesterol 64 mg/dl (40-60); Potassium 4.3 mmoL/L (3.5-5.1); Sodium 139 mmol/L (136-145); Total Protein,Serum 6.8 g/dl (6.3-8.2); Triglycerides 57 mg/dl (30-150); VLDL Cholesterol 11 mg/dL (0-40)
[2021-09-28 09:46] LABS: Direct LDL Cholesterol 61.13 mg/dL (100-129)
[2021-09-28 10:23] LABS: Vitamin B12 872 pg/mL (239-931)
== END ==
PROVIDERS: PCP Internal Medicine Adolescent Medicine; Visit Provider Nurse Practitioner Family
DX: I10 Essential (primary) hypertension (principal); E78.5 Hyperlipidemia, unspecified; J45.909 Unspecified asthma, uncomplicated; K21.9 Gastro-esophageal reflux disease without esophagitis; E66.9 Obesity, unspecified; Z68.41 Body mass index [BMI] 40.0-44.9, adult
CPT/HCPCS: 36415; 80053; 80061; 82306; 82607; 85025

== ENCOUNTER 2022-01-26 18:11 | Emergency (ER) | payer OTHER, SELFPAY ==
--- NOTE | 2022-01-26 18:17 | XR_ITS ---
PROCEDURE INFORMATION: Exam: XR Right Hand Exam date and time: 01/26/2022 6:13 PM Age: 51 years old Clinical indication: Pain and injury or trauma; Fall; Sprain or strain and swelling (edema); Hand; Right; Additional info: Fall, RT hand pain TECHNIQUE: Imaging protocol: Radiologic exam of the Right hand. Views: 3 or more views. COMPARISON: CR XR WRIST RT MIN 3V 01/26/2022 6:12 PM FINDINGS: Bones/joints: There is no evidence of acute fracture or dislocation. Joint spaces appear preserved. Soft tissues: No significant soft tissue edema. No subcutaneous emphysema or radiopaque foreign bodies. IMPRESSION: No acute posttraumatic osseous injury.
--- NOTE | 2022-01-26 18:17 | XR_ITS ---
PROCEDURE INFORMATION: Exam: XR Right Wrist Exam date and time: 01/26/2022 6:12 PM Age: 51 years old Clinical indication: Pain and injury or trauma; Fall; Sprain or strain and swelling (edema); Wrist; Right; Additional info: Fall, RT wrist pain TECHNIQUE: Imaging protocol: Radiologic exam of the Right wrist. Views: 3 or more views. COMPARISON: No relevant prior studies available. FINDINGS: Bones/joints: There is no evidence of acute fracture or dislocation. Joint spaces appear preserved. Soft tissues: No significant soft tissue edema. No subcutaneous emphysema or radiopaque foreign bodies. IMPRESSION: No acute posttraumatic osseous injury.
[2022-01-26 18:30] VITALS: BP 131/84; PULSE 82; RESP 18; TEMP 36.6; O2SAT 98; BMI 38.7
--- NOTE | 2022-01-26 19:01 | EXP.UTC ---
Discharge Plan Disposition Patient Disposition: Home, Self-Care Condition: Good Prescriptions Prescriptions: No Action meloxicam 7.5 MG tablet 7.5 mg PO DAILY bupropion HCl 150 MG tablet extended release 24 hr 1 tab PO DAILY prednisone 20 MG tablet 20 mg PO BID 7 Days Qty: 14 0RF levofloxacin 500 MG tablet 500 mg PO DAILY Qty: 7 0RF ipratropium-albuterol 3 ML solution for nebulization 3 ml IH QID PRN (Reason: Wheezing) Qty: 90 0RF cyclobenzaprine 10 MG tablet 10 mg PO BIDP PRN (Reason: Muscle Spasm) Label Comments: States she only takes it once a day. atorvastatin 40 MG tablet 40 mg PO DAILY triamterene-hydrochlorothiazid 1 EACH capsule 1 each PO DAILY Referrals Follow up/Referrals: Kenroy Mariano MD [Primary Care Provider] - See instructions Activity Restrictions/Add. Instructions Additional Instructions/Restrictions: *RICE, Rest the extremity, Ice 15-20 minutes 3-4 times daily, Compress- wear the jorgito wrap as discussed as much as possible to help reduce swelling and pain, Elevate the extremity when at rest *Jorgito wrap is for support and help control swelling, use it except in the shower. Be sure that is not to tight but not to loose either *Elevate when resting? *Ibuprofen as directed on package every 6-8 hours as needed for pain an inflammation. If need something more can take Tylenol in between doses of Ibuprofen to help Immediately follow up with your family doctor for new or worsening of symptoms, or no noticeable improvement over the next 3-5 days Clinical Impressions Clinical Impression: Sprain of wrist Qualifiers: Encounter type: initial encounter Laterality: right Qualified Code(s): S63.501A - Unspecified sprain of right wrist, initial encounter Instructions Patient Instructions: How To Perform RICE (Rest, Ice, Compress, Elevate), Wrist Sprain, DI for Wrist Sprain Discharge ED Provider: Cehlly Dumont [facility] [place] General Stated complaint: AO 01/26@1630@home injured R wrist Mode of Arrival: Ambulatory Source of Information: Patient Limitations: No Limitations Time Seen by Provider: 01/26/22 19:01 Description of Symptoms (Recalled from Triage Doc. by RN): PATIENT C/O INJURY TO RIGHT WRIST AFTER FALLING AND TRYING TO CATCH HERSELF WHILE GETTING [place] DECORATIONS OUT OF THE ATTIC HEENT Symptoms (Recalled from RN notes): No Resp Symptoms (Recalled from RN notes): No Skin Symptoms (Recalled from RN notes): No MS Symptoms (Recalled from RN notes): Yes Functional Status (Recalled from RN notes): WNL History of Present Illness Provider Complaint: Patient states that she was getting [place] decorations down from the attic and she slipped and fell around 430pm and stuck out her right hand to catch her fall State that ever since she has been having pain in her right wrist and hurts when she moves it state that this evening when it was still hurting she came in to get it checked denies any other injury Related Data Home Medications Medication Instructions Recorded Confirmed atorvastatin 40 mg tablet 40 mg PO DAILY Cholesterol 03/16/19 07/24/21 cyclobenzaprine 10 mg tablet 10 mg PO BIDP PRN Muscle Spasm 03/16/19 07/24/21 triamterene 37.5 1 each PO DAILY Fluid 03/17/19 07/24/21 mg-hydrochlorothiazide 25 mg capsule bupropion HCl 150 mg 24 hr tablet, 1 tab PO DAILY Anxiety 07/24/21 07/24/21 extended release meloxicam 7.5 mg tablet 7.5 mg PO DAILY Pain 07/24/21 07/24/21 Previous Rx's Medication Instructions Recorded ipratropium 0.5 mg-albuterol 3 mg 3 ml inhalation QID PRN Wheezing 07/25/21 (2.5 mg base)/3 mL nebulization ##90 soln levofloxacin 500 mg tablet 500 mg PO DAILY #7 tabs 07/25/21 prednisone 20 mg tablet 20 mg PO BID 7 days #14 tabs 07/25/21 Allergies Allergy/AdvReac Type Severity Reaction Status Date / Time Penicillins Allergy Unknown Verified 09/12/19 09:00 allergy reaction Sulfa (Sulfonamide Allergy Unknow
[2022-01-26 19:20] VITALS: BP 131/84; PULSE 82; RESP 18; TEMP 36.6; O2SAT 98
== END 2022-01-26 19:33 | disposition home or self-care (01) ==
PROVIDERS: Emergency Provider Nurse Practitioner; PCP Internal Medicine Adolescent Medicine
DX: S63.501A Unspecified sprain of right wrist, initial encounter (principal); W19.XXXA Unspecified fall, initial encounter
CPT/HCPCS: 73110; 73130; 99213; G0463

== ENCOUNTER → 2022-06-14 10:17 | Outpatient (CLI) | payer OTHER, SELFPAY ==
[2022-06-14 10:59] LABS: Basophils # 0.1 K/mm3 (0-0.2); Basophils % 0.7 % (0.1-2.0); Eosinophils # 0.2 K/mm3 (0.0-0.4); Eosinophils % 1.6 % (0.1-12.0); Hematocrit 42.3 % (37.0-47.0); Hemoglobin 13.5 g/dL (12.2-16.2); Lymphocytes # 3.4 K/mm3 (0.7-4.5); Lymphocytes % 31.7 % (10-50); Mean Corpuscular HGB Conc 31.9 g/dL (31.8-35.4); Mean Corpuscular Hemoglobin 29.6 pg (27.0-31.2); Mean Corpuscular Volume 92.6 fl (81-99); Mean Platelet Volume 8.7 fl (7.4-10.4); Monocytes # 0.6 K/mm3 (0.1-1.0); Monocytes % 5.2 % (1.7-9.3); Neutrophils # 6.5 K/mm3 (1.8-7.8); Neutrophils % 60.8 % (37.0-80.0); Platelet Count 372 K/mm3 (142-424); Red Blood Count 4.57 M/mm3 (4.20-5.40); Red Cell Distribution Width 13.9 % (11.5-17.5); White Blood Count 10.8 K/mm3 (4.8-10.8)
[2022-06-14 11:25] LABS: Chloride 102 mmol/L (98-107)
[2022-06-14 11:26] LABS: Potassium 4.2 mmoL/L (3.5-5.1); Sodium 137 mmol/L (136-145)
[2022-06-14 11:28] LABS: Alanine Aminotransferase 34 U/L (12-78); Aspartate Amino Transferase 37 U/L (14-36); Blood Urea Nitrogen 19 mg/dl (7-17); Estimated Glomerular Filt Rate 75 ml/min (>60); GFR (African American) 91 ML/MIN (>60)
[2022-06-14 11:29] LABS: Albumin Level 4.4 g/dl (3.5-5.0); Albumin/Globulin Ratio 1.7 (1.1-1.8); Alkaline Phosphatase 100 U/L (38-126); Anion Gap 9.2 mEq/L (5-15); Bilirubin,Total 0.6 mg/dl (0.2-1.3); Calcium 9.2 mg/dl (8.4-10.2); Carbon Dioxide 30 mmol/L (22.0-30.0); Chol/HDL Ratio 2.8 (1-3.5); Cholesterol 209 mg/dl (140-200); Globulin 2.6 g/dL (1.3-3.2); Glucose 88 mg/dl (74-100); HDL Cholesterol 75 mg/dl (40-60); Triglycerides 81 mg/dl (30-150); VLDL Cholesterol 16 mg/dL (0-40)
[2022-06-14 11:40] LABS: Direct LDL Cholesterol 104.71 mg/dL (100-129)
[2022-06-14 17:29] LABS: 25-OH Vitamin D, Total 20.1 ng/mL (30-100)
[2022-06-14 19:18] LABS: Vitamin B12 468 pg/mL (239-931)
[2022-06-14 21:47] LABS: Hemoglobin A1C 5.5 % (4.0-6.0)
== END ==
PROVIDERS: PCP Nurse Practitioner Family; Visit Provider Nurse Practitioner Family
DX: I10 Essential (primary) hypertension (principal); E78.5 Hyperlipidemia, unspecified; E53.8 Deficiency of other specified B group vitamins; E55.9 Vitamin D deficiency, unspecified; E66.01 Morbid (severe) obesity due to excess calories; Z68.41 Body mass index [BMI] 40.0-44.9, adult
CPT/HCPCS: 36415; 80053; 80061; 82306; 82607; 83036; 85025

== ENCOUNTER → 2022-06-22 07:20 | Outpatient (CLI) | payer OTHER, SELFPAY ==
--- NOTE | 2022-06-22 07:24 | CT_ITS ---
FINAL REPORT CLINICAL HISTORY: H/O TOBACCO USE. former smoker, quit 4 months ago. smoked half a ppd x 39 years. COMPARISON: 05/27/2021 FINDINGS: Low-Dose Chest CT Axial images were obtained from the lung apex to the mid abdomen by computed tomography. Low-dose protocol was utilized. CTDI vol (mGy): 15.37 DLP (mGy-cm): 305.31 There is no axillary adenopathy. There is no hilar or mediastinal adenopathy. The heart is proper size. There is no pericardial or pleural effusion. Lung window images demonstrate multiple calcified granulomas. The previously identified small nodules are not visualized on today's exam. No new mass or nodule is identified. Limited images of the upper abdomen demonstrate postoperative changes from cholecystectomy. IMPRESSION: Previously identified nodules not visualized on today's exam. No new mass or nodule is identified. Lung RADS category 1. Recommend 12 month follow-up low-dose chest CT. Reviewed, Interpreted and Dictated by Pierre Summers III, MD Transcribed by Eloisa Smith Authenticated and [facility]
--- NOTE | 2022-06-22 07:24 | XR_ITS ---
FINAL REPORT TECHNIQUE: Bone densitometry calculations of the lumbar spine and left hip were obtained. CLINICAL HISTORY: . post menopausal FINDINGS: DEXA BONE DENSITY AXIAL SKELETON Using L1-4, the bone mineral density of the spine is 1.022 g/cm2, corresponding to T-score of -0.2. Using the left hip, the bone mineral density of the femoral neck is 0.829 g/cm2, corresponding to a T-score of -0.2. NOTE: T-score: Standard deviation compared with peak bone mass of young adult mean. *Following the recommendations of the International Society of Bone densitometry, classification of hip BMD is based on the lower of two T-scores; total hip or femoral neck. IMPRESSION: Normal bone mineral density of the lumbar spine and hip. FRAX not reported because: Some T-score for Spine Total or hip Total or femoral neck at or above -1.0. Reviewed, Interpreted and Dictated by Pierre Summers III, MD Transcribed by Eloisa Smith Authenticated and [facility]
--- NOTE | 2022-06-22 07:25 | MM_ITS ---
PROCEDURE INFORMATION: Exam: MG Bilateral Screening 3D Mammography Exam date and time: 06/22/2022 8:04 AM Age: 52 years old Clinical indication: Screening mammogram TECHNIQUE: Imaging protocol: Bilateral Screening tomosynthesis and 2D mammography including computer-aided detection (CAD) when performed. COMPARISON: 1. MG MM DIG SCREENING MAMM BI W/CAD 05/27/2021 7:58 AM 2. MG MM DIG SCREENING MAMM BI W/CAD 07/25/2019 10:28 AM FINDINGS: MAMMOGRAPHY: Breast composition: There are scattered areas of fibroglandular density. Mass: None. Architectural distortion: No new or suspicious architectural distortion. Calcifications: No new or suspicious calcifications are present Asymmetric density: No new or suspicious asymmetric density is present Skin thickening: None. Axillary adenopathy: None. IMPRESSION: No mammographic evidence of malignancy. Recommend annual screening mammography unless otherwise clinically indicated. ASSESSMENT: BI-RADS category 1: Negative
== END ==
PROVIDERS: PCP Nurse Practitioner Family; Visit Provider Nurse Practitioner Family
DX: Z12.31 Encounter for screening mammogram for malignant neoplasm of breast (principal); Z87.891 Personal history of nicotine dependence; Z12.2 Encounter for screening for malignant neoplasm of respiratory organs; Z13.820 Encounter for screening for osteoporosis; M27.9 Disease of jaws, unspecified
CPT/HCPCS: 71271; 77063; 77067; 77080

== ENCOUNTER → 2022-12-04 09:57 | Outpatient (CLI) | payer OTHER, SELFPAY ==
--- NOTE | 2022-12-04 10:04 | XR_ITS ---
FINAL REPORT TECHNIQUE: Left humerus 2 views CLINICAL HISTORY: ACUTE PAIN, fall 2 mos ago COMPARISON: None FINDINGS: LEFT HUMERUS: Views of the left humerus failed to reveal any evidence of fracture or dislocation. No significant soft tissue swelling is identified. IMPRESSION: Unremarkable left humerus. Reviewed, Interpreted and Dictated by Cathie Munoz MD Transcribed by Katarina Rebolledo Authenticated and [facility]
--- NOTE | 2022-12-04 10:04 | XR_ITS ---
FINAL REPORT CLINICAL HISTORY: ACUTE PAIN, fall 2 mos ago COMPARISON: None FINDINGS: 2 views of the left shoulder were obtained. There is no prior exam for comparison. There is no fracture or dislocation. Mild degenerative change of the acromioclavicular joint is present. Soft tissues are normal. IMPRESSION: Mild degenerative change acromioclavicular joint. Reviewed, Interpreted and Dictated by Cathie Munoz MD Transcribed by Katarina Rebolledo Authenticated and [facility]
== END ==
PROVIDERS: PCP Internal Medicine Adolescent Medicine; Visit Provider Nurse Practitioner Family
DX: M25.512 Pain in left shoulder (principal)
CPT/HCPCS: 73030; 73060

== ENCOUNTER 2022-12-28 17:00 | Outpatient (RCR) | payer OTHER, SELFPAY ==
--- NOTE | 2022-12-07 15:52 | HMH.PTOPEV ---
PT Outpatient Evaluation Rehab PT Outpatient Evaluation Start: 12/07/22 14:50 Freq: Status: Active Protocol: Document 12/07/22 14:50 PDESEROUX (Rec: 12/07/22 15:51 [email or web address] [id number]) E-signed By Thong Saini, PT Outpatient Therapy Subjective History Subjective History Pt. is a 52 year old female who presents to [facility] in [place] for the initial evaluation this date(12/07/22) w/ c/o subacute and constant LUE shldr. P!, weakness, and popping of traumatic onset after falling onto the LUE elbow 2 months ago. Pt. reports exiting her trailer and the cinderblock she stepped down onto gave out from underneath her and landed onto her LUE elbow jamming the elbow and shldr. Pt. reports the elbow P! has progressively gotten better, but the shldr. P! remains constant. Recent diagnostic imaging indicates osteoarthritis per pt. report. Pt. denies having any symptom releif w/ recent steroid injection, reports some symptom relief w/ OTC Tylenol. Pt. reports lifting, dressing , and sleeping worsen symptoms . Pt. RTMD in 1 month. Curent medications include Tylenol, Meloxicam, and Welbutrin. PMH includes BUE Carpal Tunnel, HTN, Hyperlipidemia, DNC, Herniorrhaphy, and a Cholecystectomy. New diagnosis of cancer in past 12 No months? Chief Complaint Pain,Stiff,Clicks,Swelling, Gives out/Unstable,Weakness Symptom Type Ache,Sharp,Stabbing,Burning, Shooting Symptoms Relieved By Rest/Positioning,Ice,Brace/ Support,OTC Meds Symptoms Aggravated By Physical Activity,Twisting, Lifting Prior Functional Limitations None Current Functional Limitations Reaching,Lifting,Housework,
== END 2023-01-11 10:03 | disposition home or self-care (01) ==
LOC: PT 17:00
PROVIDERS: PCP Internal Medicine Adolescent Medicine; Visit Provider Nurse Practitioner Family
DX: M75.02 Adhesive capsulitis of left shoulder (principal)
CPT/HCPCS: 97010; 97014; 97110; 97140; 97163; 97530; G0283

== ENCOUNTER 2023-01-04 21:09 | Emergency (ER) | payer OTHER, SELFPAY ==
[2023-01-04 21:10] VITALS: BP 163/88; PULSE 84; RESP 16; TEMP 36.8; O2SAT 97; BMI 41.0
--- NOTE | 2023-01-04 21:54 | CT_ITS ---
PROCEDURE INFORMATION: Exam: CT Abdomen And Pelvis With Contrast Exam date and time: 01/04/2023 10:41 PM Age: 52 years old Clinical indication: Nausea and vomiting; Abdominal pain; Epigastric; Prior surgery; Surgery date: 6+ months; Surgery type: Gallbladder, hernia; Additional info: Diffuse abd tenderness n/v/d TECHNIQUE: Imaging protocol: Computed tomography of the abdomen and pelvis with contrast. Radiation optimization: All CT scans at this facility use at least one of these dose optimization techniques: automated exposure control; mA and/or kV adjustment per patient size (includes targeted exams where dose is matched to clinical indication); or iterative reconstruction. Contrast material: ISOVUE; Contrast volume: 75 ml; Contrast route: IV; REPORTING DATA: Count of CT and Cardiac NM exams in prior 12 months: This patient has received [address] and 0 known cardiac nuclear medicine studies in the 12 months prior to the current study. COMPARISON: CT ABDOMEN PELVIS W CON 03/16/2019 7:00 PM FINDINGS: Lungs: Mild left lung base atelectasis. Clear right lung base. Liver: Mild hepatic steatosis. No focal lesions or hepatomegaly. Gallbladder and bile ducts: Status post cholecystectomy. Mild extrahepatic biliary ductal dilatation with the common bile duct measuring 1.1 cm in diameter. Pancreas: Normal. No ductal dilation. Spleen: Calcified granulomas in the spleen. No splenomegaly. Adrenal glands: Normal. No mass. Kidneys and ureters: Normal. No hydronephrosis. Stomach and bowel: Extensive distal colonic diverticulosis without diverticulitis. No bowel obstruction. Appendix: Normal appendix is seen. Intraperitoneal space: Unremarkable. No free air. No significant fluid collection. Vasculature: Moderate atherosclerotic disease without aneurysm. Lymph nodes: Unremarkable. No enlarged lymph nodes. Urinary bladder: Unremarkable as visualized. Reproductive: Unremarkable as visualized. Bones/joints: Severe degenerative disc disease and facet arthropathy at L5-S1 with moderate central canal and severe bilateral foraminal stenosis.. Soft tissues: Unremarkable. IMPRESSION: 1. Status post cholecystectomy. Mild biliary ductal dilatation is likely physiologic status post cholecystectomy. Correlate with bilirubin levels. 2. Extensive distal colonic diverticulosis without diverticulitis.
--- NOTE | 2023-01-04 21:55 | HMH.EDGENADL ---
Discharge Plan Disposition Patient Disposition: Home, Self-Care Prescriptions Prescriptions: New ondansetron HCl 4 mg tablet 4 mg PO Q8H PRN (Reason: nausea and vomiting) 5 Days Qty: 30 0RF No Action meloxicam 7.5 MG tablet 7.5 mg PO DAILY bupropion HCl 150 MG tablet extended release 24 hr 1 tab PO DAILY prednisone 20 MG tablet 20 mg PO BID 7 Days Qty: 14 0RF levofloxacin 500 MG tablet 500 mg PO DAILY Qty: 7 0RF ipratropium-albuterol 3 ML solution for nebulization 3 ml IH QID PRN (Reason: Wheezing) Qty: 90 0RF cyclobenzaprine 10 MG tablet 10 mg PO BIDP PRN (Reason: Muscle Spasm) Patient Comments: States she only takes it once a day. atorvastatin 40 MG tablet 40 mg PO DAILY triamterene-hydrochlorothiazid 1 EACH capsule 1 each PO DAILY Referrals Follow up/Referrals: Kenroy Mariano MD [Primary Care Provider] - See instructions Activity Restrictions/Add. Instructions Additional Instructions/Restrictions: Please take Zofran as needed for nausea and vomiting. Please follow-up with your primary care provider. Please return to the emergency department if you develop any new or worsening symptoms or become concerned for your health. Clinical Impressions Clinical Impression: Diffuse abdominal pain, Nausea vomiting and diarrhea Instructions Patient Instructions: DI for Diarrhea and Traveler's Diarrhea -- Adult, DI for Diarrhea and Traveler's Diarrhea -- Child, DI for Nausea -- Adult, DI for Nausea -- Child Discharge ED Provider: S[facility] HPI <Angeline Harris MD - Last Filed: 01/04/23 23:01> General Chief complaint: Nausea/Vomiting/Diarrhea Stated complaint: vomiting/diarrhea Time Seen by Provider: 01/04/23 21:51 History of Present Illness HPI narrative: Patient is a 52-year-old female presenting with 3 days of nausea vomiting diarrhea and diffuse abdominal pain. States the pain has been severe. No blood in her emesis or in her stool. No fevers or chills. No urinary symptoms including burning frequency urgency. No history of any colitis or diverticulitis. No sick contacts that she is aware of. No respiratory complaints or other symptoms from other organ systems. Related Data Home Medications Medication Instructions Recorded Confirmed atorvastatin 40 mg tablet 40 mg PO DAILY Cholesterol 03/16/19 07/24/21 cyclobenzaprine 10 mg tablet 10 mg PO BIDP PRN Muscle Spasm 03/16/19 07/24/21 triamterene 37.5 1 each PO DAILY Fluid 03/17/19 07/24/21 mg-hydrochlorothiazide 25 mg capsule bupropion HCl 150 mg 24 hr tablet, 1 tab PO DAILY Anxiety 07/24/21 07/24/21 extended release meloxicam 7.5 mg tablet 7.5 mg PO DAILY Pain 07/24/21 07/24/21 Previous Rx's Medication Instructions Recorded ipratropium 0.5 mg-albuterol 3 mg 3 ml inhalation QID PRN Wheezing 07/25/21 (2.5 mg base)/3 mL nebulization ##90 soln levofloxacin 500 mg tablet 500 mg PO DAILY #7 tabs 07/25/21 prednisone 20 mg tablet 20 mg PO BID 7 days #14 tabs 07/25/21 ondansetron HCl 4 mg tablet 4 mg PO Q8H PRN nausea and 01/04/23 vomiting 5 days #30 tabs Allergies Allergy/AdvReac Type Severity Reaction Status Date / Time Penicillins Allergy Unknown Verified 09/12/19 09:00 allergy reaction Sulfa (Sulfonamide Allergy Unknown Verified 09/12/19 09:00 Antibiotics) allergy reaction PFSH <Angeline Harris MD - Last Filed: 01/04/23 23:01> [facility] Disclaimer: The information contained in this section may have been updated after the patient was seen, as this information can be updated by other users. Medical History (Updated 01/04/23 @ 21:57 by Angeline Harris MD) Hyperlipidemia Hypertension Social History Smoking Status: Never smoker alcohol intake: never substance use type: marijuana current occupational status: unemployed Travel in the last 8 weeks: None household members: spouse housing: other caffeine: Yes <
[2023-01-04 22:11] LABS: Basophils # 0.1 K/mm3 (0-0.2); Basophils % 0.5 % (0.1-2.0); Eosinophils # 0.2 K/mm3 (0.0-0.4); Eosinophils % 1.4 % (0.1-12.0); Hematocrit 42.7 % (37.0-47.0); Lymphocytes # 3.3 K/mm3 (0.7-4.5); Lymphocytes % 27.3 % (10-50); Mean Corpuscular Hemoglobin 30.7 pg (27.0-31.2); Mean Corpuscular Volume 87.7 fl (81-99); Mean Platelet Volume 8.6 fl (7.4-10.4); Monocytes # 0.7 K/mm3 (0.1-1.0); Monocytes % 5.8 % (1.7-9.3); Neutrophils # 7.8 K/mm3 (1.8-7.8); Platelet Count 392 K/mm3 (142-424); Red Blood Count 4.88 M/mm3 (4.20-5.40); Red Cell Distribution Width 13.6 % (11.5-17.5); White Blood Count 12.1 K/mm3 (4.8-10.8)
[2023-01-04 22:14] LABS: Chloride 101 mmol/L (98-107); Sodium 138 mmol/L (136-145)
[2023-01-04 22:15] LABS: Potassium 3.6 mmoL/L (3.5-5.1)
[2023-01-04 22:17] LABS: Alanine Aminotransferase 39 U/L (12-78); Albumin Level 4.7 g/dl (3.5-5.0); Albumin/Globulin Ratio 1.2 (1.1-1.8); Alkaline Phosphatase 115 U/L (38-126); Anion Gap 12.6 mEq/L (5-15); Aspartate Amino Transferase 36 U/L (14-36); Bilirubin,Total 0.6 mg/dl (0.2-1.3); Blood Urea Nitrogen 17 mg/dl (7-17); Calcium 9.1 mg/dl (8.4-10.2); Carbon Dioxide 28 mmol/L (22.0-30.0); Creatinine Clearance Estimated 98 mL/min (50-200); Estimated Glomerular Filt Rate 58 ml/min (>60); GFR (African American) 70 ML/MIN (>60); Globulin 3.8 g/dL (1.3-3.2); Glucose 109 mg/dl (74-100); Lactic Acid 1.2 mmol/L (0.7-2.1); Total Protein,Serum 8.5 g/dl (6.3-8.2)
[2023-01-04 23:33] VITALS: BP 125/77; PULSE 70; RESP 18; TEMP 36.7; O2SAT 94
== END 2023-01-04 23:39 | disposition home or self-care (01) ==
PROVIDERS: Student in an Organized Health Care Education/Training Program; Emergency Provider Emergency Medicine; PCP Internal Medicine Adolescent Medicine
DX: R10.84 Generalized abdominal pain (principal); R11.2 Nausea with vomiting, unspecified; I10 Essential (primary) hypertension; E78.5 Hyperlipidemia, unspecified
CPT/HCPCS: 74177; 80053; 83605; 85025; 96361; 96374; 96375; 99284; J2405; Q9967

== ENCOUNTER 2023-03-16 09:50 | Day surgery (SDC) | payer OTHER, SELFPAY ==
[2023-03-16] VITALS (7 sets, daily range): BP systolic 119–143; BP diastolic 58–89; PULSE 71–82; RESP 17–18; TEMP 36.1–36.6; O2SAT 90–98; BMI 38.0
[2023-03-16] MEDS: LACTATED RINGERS 1000ML 1,000 ML 25 ML IV (10:27)
[2023-03-16 10:35] LABS: POC Glucose,Bedside 89 (70-110)
--- NOTE | 2023-03-16 10:47 | EXP.ANES.CKL ---
[facility] Disclaimer: The information contained in this section may have been updated after the patient was seen, as this information can be updated by other users. Medical History (Updated 03/16/23 @ 10:16 by Adamaris Macias RN) Diabetes mellitus, type 2 Hyperlipidemia Hypertension Family History (Updated 03/16/23 @ 10:16 by Adamaris Macias RN) Other Family history of stroke Social History (Updated 03/16/23 @ 10:16 by Adamaris Macias RN) Smoking Status: Never smoker alcohol intake: never substance use type: marijuana current occupational status: unemployed Travel in the last 8 weeks: None household members: spouse housing: other caffeine: No [facility] Anesthesia Checklist Patient Identification Patient Identification: Arm Band Structural Data Admitted From: Home Planned Operative Procedure/s: colonoscopy Consent for Planned Operative Procedure(s) Verified: Yes Verified Documents: Surgical Consent and History and Physical NPO Status Verified Time NPO: 00:00 Additional verifications Anesthesia Reactions: No Airway Assessment Mallampati Score:: Class II C-Spine Mobility Assessed: Yes TMJ Mobility Assessed: Yes Dentition: Good Dentition Neurological Assessment Level of Consciousness: Awake and Alert Anesthesia Plan Anesthesia Risk discussed: Yes Anesthesia Plan: Verified ASA Class: III Anesthesia Type: MAC
--- NOTE | 2023-03-16 13:20 | P.PCN_ITS ---
Procedure: Date: 03/16/23 Patient Date of :: 1970 Procedure Performed:: Total colonoscopy to terminal ileum with polypectomy using snare Indications:: Patient is a 52-year-old female from [place]. She had previously undergone colonoscopy in August 2019 and had a tubular adenoma removed. 3-year follow-up colonoscopy was recommended as she also has a brother who had colon cancer. Performing Provider:: Pierre Echeverria MD Referring Provider:: Kenroy Mariano MD Sedation:: MAC sedation Procedure:: Patient history was obtained and appropriate physical examination was performed. Patient's medications and allergies were reviewed. Informed consent was obtained after explaining the benefits, alternatives, and risks of the procedure including, but not limited to, bleeding, perforation, missed lesions, and adverse reaction to anesthesia medications. Patient was transported to endoscopy procedure room. Patient was connected to monitoring devices. Throughout the procedure the patient's blood pressure, pulse, and oxygen saturations were monitored continuously. Patient identification and planned procedure were verified by the staff. Patient was positioned in lateral decubitus position. Digital anorectal exam was performed. Variable stiffness Olympus colonoscope was inserted and advanced under direct visualization to the cecum. Adequacy of the colonic preparation was noted. The colonoscope was advanced a short distance into the terminal ileum. The colonoscope was then slowly withdrawn while carefully examining the color, texture, anatomy, and integrity of the mucosoa circumferentially. Colonoscope was then withdrawn. . Colonoscope was ultimately advanced to the cecum. Colonic preparation was good but there was some spasticity of the colon and patient had significant abdominal breathing which created motion somewhat limiting visualization. There were significant sigmoid and left-sided diverticuli. There were a few hyperplastic appearing rectosigmoid polyps which were removed with cold biopsy forceps. Retroflexion within the rectum was not technically possible. Colonoscope was withdrawn. Findings:: Left-sided diverticuli Hyperplastic appearing rectosigmoid polyps Recommendations:: Pending pathology likely repeat colonoscopy 3 to 5 years given prior history of adenomatous polyps and family history of colon cancer in first-degree relative Complications:: None immediately apparent Estimated blood obtained (mL): 1 Colonoscopy Component Colonoscopy Component Was a colonoscopy performed during today's procedure?: Yes Recommended follow up colonoscopy of at least 10 years?: No If no, follow up colonoscopy recommended in ___ years?: See above Reason for not recommending >/= 10 yr follow-up interval?: See above
--- NOTE | 2023-03-16 13:26 | P.PNANES_ITS ---
[facility] Anesthesia Record Part I Anesthesia Record I Intake, IV Amount: 500 Hydration: Adequate Estimated blood loss (mL): 1 Urine output (mL): 0 Blood Products used (#): none Blood Pressure: 121/59 SaO2: 90 Pulse Rate: 82 Airway Patency: Patent Respiratory Rate: 18 Temperature: 97.0 F Patient is:: Awake, Drowsy and Stable Stable to PACU at:: 13:25
== END 2023-03-16 13:55 | disposition home or self-care (01) ==
PROVIDERS: PCP Internal Medicine Adolescent Medicine; Visit Provider Surgery
PROC: 0DJD8ZZ Inspection of Lower Intestinal Tract, Via Natural or Artificial Opening Endoscopic (ICD-10-PCS; CPT 45380; principal; 2023-03-16 09:30)
DX: Z12.11 Encounter for screening for malignant neoplasm of colon (principal); Z86.010 Personal history of colon polyps; Z80.0 Family history of malignant neoplasm of digestive organs; D12.7 Benign neoplasm of rectosigmoid junction; E11.9 Type 2 diabetes mellitus without complications
CPT/HCPCS: 45380; 82962; J2704

== ENCOUNTER 2023-04-05 10:15 | Outpatient (CLI) | payer OTHER, SELFPAY ==
--- NOTE | 2023-04-05 10:21 | XR_ITS ---
FINAL REPORT CLINICAL HISTORY: Foot Pain FINDINGS: Right foot Three views were obtained. There is no acute fracture or dislocation. The joint spaces appear normal. No soft tissue abnormality is identified. There is a small plantar spur. IMPRESSION: No acute process. Reviewed, Interpreted and Dictated by Blayne Martines MD Transcribed by Florina Santiago Authenticated and [facility]
--- NOTE | 2023-04-05 10:21 | XR_ITS ---
FINAL REPORT CLINICAL HISTORY: Foot Pain FINDINGS: Left foot Three views were obtained. There is no acute fracture or dislocation. The joint spaces appear normal. No soft tissue abnormality is identified. There is a small plantar spur. IMPRESSION: No acute process. Reviewed, Interpreted and Dictated by Blayne Martines MD Transcribed by Florina Santiago Authenticated and [facility]
== END 2023-04-05 23:59 ==
LOC: RAD 10:16
PROVIDERS: PCP Internal Medicine Adolescent Medicine; Visit Provider Podiatrist
DX: M79.671 Pain in right foot (principal); M79.672 Pain in left foot
CPT/HCPCS: 73630

== ENCOUNTER 2023-05-29 06:01 | Emergency (ER) | payer OTHER, SELFPAY ==
[2023-05-29 06:02] VITALS: BP 137/118; PULSE 74; RESP 16; TEMP 36.6; O2SAT 97; BMI 37.8
--- NOTE | 2023-05-29 06:22 | HMH.EDGENADL ---
Discharge Plan Disposition Patient Disposition: Home, Self-Care Prescriptions Prescriptions: New cefdinir 300 mg capsule 300 mg PO BID 7 Days Qty: 14 0RF No Action meloxicam 7.5 MG tablet 7.5 mg PO DAILY bupropion HCl 150 MG tablet extended release 24 hr 1 tab PO DAILY ipratropium-albuterol 3 ML solution for nebulization 3 ml IH QID PRN (Reason: Wheezing) Qty: 90 0RF ondansetron HCl 4 mg tablet 4 mg PO Q8H PRN (Reason: nausea and vomiting) 5 Days Qty: 30 0RF cyclobenzaprine 10 MG tablet 10 mg PO BIDP PRN (Reason: Muscle Spasm) Patient Comments: States she only takes it once a day. atorvastatin 40 MG tablet 40 mg PO DAILY triamterene-hydrochlorothiazid 1 EACH capsule 1 each PO DAILY Referrals Follow up/Referrals: Kenroy Mariano MD [Primary Care Provider] - See instructions Activity Restrictions/Add. Instructions Additional Instructions/Restrictions: Please take cefdinir as prescribed for treatment of ear infection and possible strep throat. Please use 4 drops of the ear solution in each ear 4 times a day for a week. Clinical Impressions Clinical Impression: Otitis media Qualifiers: Otitis media type: suppurative Chronicity: acute Laterality: bilateral Recurrence: not specified as recurrent Spontaneous tympanic membrane rupture: without spontaneous rupture Qualified Code(s): H66.003 - Acute suppurative otitis media without spontaneous rupture of ear drum, bilateral Pharyngitis Qualifiers: Pharyngitis/tonsillitis etiology: unspecified etiology Qualified Code(s): J02.9 - Acute pharyngitis, unspecified Discharge ED Provider: Sheng Rush General Adult HPI General Chief complaint: Ear Stated complaint: pain in both ears, trouble swallowing, sore throat Time Seen by Provider: 05/29/23 06:09 Mode of Arrival: Ambulatory Source of Information: Patient Limitations: No Limitations Description of Symptoms (Recalled from ER Triage Doc. by RN): Pt presents with bilateral ear pain for 4 days associated with headache and sore throat. States the left ear has had blood tinged drainage. History of Present Illness HPI narrative: 52-year-old female with history of hypertension hyperlipidemia and prediabetes presents with bilateral ear pain and throat pain for the last several days. She reports some dark drainage from her left ear, likely earwax and exudate. Patient reports she is not sure if it was blood but she has had no trauma to suggest laceration. She also ports intermittent headache, but the headache goes away when she lays down. She also reports congestion. Related Data Home Medications Medication Instructions Recorded Confirmed atorvastatin 40 mg tablet 40 mg PO DAILY Cholesterol 03/16/19 05/15/23 cyclobenzaprine 10 mg tablet 10 mg PO BIDP PRN Muscle Spasm 03/16/19 05/15/23 triamterene 37.5 1 each PO DAILY Fluid 03/17/19 05/15/23 mg-hydrochlorothiazide 25 mg capsule bupropion HCl 150 mg 24 hr tablet, 1 tab PO DAILY Anxiety 07/24/21 05/15/23 extended release meloxicam 7.5 mg tablet 7.5 mg PO DAILY Pain 07/24/21 05/15/23 Previous Rx's Medication Instructions Recorded ipratropium 0.5 mg-albuterol 3 mg 3 ml inhalation QID PRN Wheezing 07/25/21 (2.5 mg base)/3 mL nebulization ##90 soln ondansetron HCl 4 mg tablet 4 mg PO Q8H PRN nausea and 01/04/23 vomiting 5 days #30 tabs cefdinir 300 mg capsule 300 mg PO BID 7 days #14 caps 05/29/23 Allergies Allergy/AdvReac Type Severity Reaction Status Date / Time Penicillins Allergy Unknown Verified 05/15/23 08:51 allergy reaction Sulfa (Sulfonamide Allergy Unknown Verified 05/15/23 08:51 Antibiotics) allergy reaction PFSH [facility] Disclaimer: The information contained in this section may have been updated after the patient was seen, as this information can be updated by other users. Medical History Diabetes mellitus, type 2 Hyperlipidemia Hypertension Surgical History History of colonoscopy Family History Other Family history of stroke Social History Smoking Status: Never smoker alcohol intake: never substance use type: marijuana current occupational status: unemployed Travel in the last 8 weeks: None household members: spouse housing: other caffeine: No ROS Obtained: Yes All systems reviewed & no additional complaints except as documented Physical Exam General General appearance: alert and in no apparent distress Head Head exam: atraumatic and normocephalic Eye Eye exam: Present normal appearance, PERRL and EOMI ENT ENT exam: Present normal external ear exam and other (Oropharynx erythematous with mild exudate. Bilateral TMs bulging with purulence, bilateral EACs erythematous, left with exudate) Neck Neck exam: Present normal inspection and full ROM Chest Chest inspection: Present normal inspection and symmetric chest wall rise; Absent tenderness Respiratory Respiratory exam: Present normal lung sounds bilaterally; Absent respiratory distress Cardiovascular Cardiovascular exam: Present regular rate and normal rhythm Abdominal Exam Abdominal exam: Present soft; Absent distention, tenderness or guarding Extremities Exam Extremities exam: Present normal inspection; Absent edema or joint swelling Back Exam Back exam: Present normal inspection; Absent tenderness Neurological Exam Neurological exam: Present alert and oriented X3; Absent motor sensory deficit Psychiatric Psychiatric exam: Present normal affect and normal mood Skin Skin exam: Present warm, dry and normal color Lymphatic Lymphatic Findings: no adenopathy Medical Decision Making Medical Records Medical records reviewed: Yes I reviewed the patient's medical records. Marcio Inquiry Pt receiving controlled substance: No Marcio was queried for this patient: No Vital Signs: 05/29/23 06:02 Temperature 97.8 F Temperature Source Oral Pulse Rate [Left] 74 Respiratory Rate 16 Blood Pressure [Right Arm] 137/118 H Blood Pressure Mean [Right Arm] 124 Blood Pressure Source [Right Arm] Automatic Cuff Blood Pressure Position [Right Arm] Sitting 02 Sat by Pulse Oximetry 97 Oxygen Delivery Method Room Air Lab Data Lab results reviewed: Yes I reviewed the patient's lab results. Orders (Tests/Meds): ED MEDICATIONS Generic Name Dose Route Start Last Admin Trade Name Freq PRN Reason Stop Dose Admin Cefdinir 300 mg 05/29/23 06:17 Cefdinir 300mg Capsule PO 05/29/23 06:18 ONCE ONE Neomycin/Polymyxin/Hydrocortisone 10 ml 05/29/23 06:18 [id number] Otic Susp 10ml OT 05/29/23 06:19 ONCE ONE Medical Decision Narrative: 52-year-old male with history of hypertension, hyperlipidemia, prediabetes presents with bilateral ear pain and throat pain for the last several days. History was obtained interactive discussion with patient. On arrival, patient is [afebrile, hemodynamically stable, satting appropriately, alert, oriented x4, GCS 15], moving all extremities spontaneously. Full physical exam performed and significant for findings consistent with bilateral otitis media, left otitis externa, possible bacterial pharyngitis Differential includes but is not limited to otitis media, otitis externa, sinusitis, viral pharyngitis, bacterial pharyngitis, mastoiditis, tension headache, migraine headache, intracranial extension of infection. Patient was given oral cefdinir and neomycin polymyxin drops for symptomatic management and correction of underlying abnormalities. Strep pharyngitis swab was considered, but deemed unnecessary due to we will be treating her with appropriate antibiotic coverage regardless as we are going to be treating her ear infection.. Given patient history, exam and workup, patient's presentation most likely represents bilateral otitis media, mild left otitis externa, viral versus bacterial pharyngitis. Patient was given a prescription for neomycin polymyxin drops and oral cefdinir for 7-day course of treatment. She was given return precautions.. Procedures Risk/Benefits of Procedure(s) Were Explained: Yes Critical Care Critical Care Time Critical Care Time: No
[2023-05-29] MEDS: NEOMYCIN-POLYMYXIN-HC OTIC SUSP 10ML 10 ML OT (06:24)
[2023-05-29] MEDS: CEFDINIR 300MG CAPSULE 300 MG PO (06:25)
[2023-05-29 06:30] VITALS: BP 137/118; PULSE 74; RESP 16; TEMP 36.6; O2SAT 97
== END 2023-05-29 06:32 | disposition home or self-care (01) ==
PROVIDERS: Emergency Provider Emergency Medicine; PCP Internal Medicine Adolescent Medicine
DX: H66.003 Acute suppurative otitis media without spontaneous rupture of ear drum, bilateral (principal); J02.9 Acute pharyngitis, unspecified; R51.9 Headache, unspecified; I10 Essential (primary) hypertension; E78.5 Hyperlipidemia, unspecified; E11.9 Type 2 diabetes mellitus without complications
CPT/HCPCS: 99283

== ENCOUNTER 2023-06-07 20:25 | Emergency (ER) | payer OTHER, SELFPAY ==
[2023-06-07 20:33] VITALS: BP 150/81; PULSE 73; RESP 18; TEMP 36.7; O2SAT 96; BMI 39.0
--- NOTE | 2023-06-07 20:37 | HMH.EDGENADL ---
Discharge Plan Disposition Patient Disposition: Home, Self-Care Prescriptions Prescriptions: New clindamycin HCl 150 mg capsule 450 mg PO Q6H 7 Days Qty: 84 0RF ondansetron 4 mg tablet,disintegrating 4 mg PO Q8H PRN (Reason: nausea and vomiting) 4 Days Qty: 12 0RF No Action meloxicam 7.5 MG tablet 7.5 mg PO DAILY bupropion HCl 150 MG tablet extended release 24 hr 1 tab PO DAILY ipratropium-albuterol 3 ML solution for nebulization 3 ml IH QID PRN (Reason: Wheezing) Qty: 90 0RF ondansetron HCl 4 mg tablet 4 mg PO Q8H PRN (Reason: nausea and vomiting) 5 Days Qty: 30 0RF cefdinir 300 mg capsule 300 mg PO BID 7 Days Qty: 14 0RF cyclobenzaprine 10 MG tablet 10 mg PO BIDP PRN (Reason: Muscle Spasm) Patient Comments: States she only takes it once a day. atorvastatin 40 MG tablet 40 mg PO DAILY triamterene-hydrochlorothiazid 1 EACH capsule 1 each PO DAILY Referrals Follow up/Referrals: Kenroy Mariano MD [Primary Care Provider] - See instructions Activity Restrictions/Add. Instructions Additional Instructions/Restrictions: At this time it was felt you are safe to be discharged home. If new or worsening symptoms please do not hesitate to return the emergency department. If symptoms persist please follow-up with your family doctor as you are able. Please take your antibiotics as prescribed. Clinical Impressions Clinical Impression: Otitis media Discharge ED Provider: Dioni Wei General Adult HPI General Chief complaint: Ear Stated complaint: inner ear inf, fever, sore throat, marleny Time Seen by Provider: 06/07/23 20:30 History of Present Illness HPI narrative: Patient is a 52-year-old female with past medical history of recently diagnosed pharyngitis, bilateral otitis media, otitis externa who presents emergency department for evaluation of persistent ear pain. Patient was partially compliant with her cefdinir however had to self discontinued due to a rash. She states that her left ear symptoms are improving, her sore throat is much better however due to persistent pain on the right ear and inability to take her cefdinir as was prescribed she presents here for continued evaluation. No other acute complaints. Related Data Home Medications Medication Instructions Recorded Confirmed atorvastatin 40 mg tablet 40 mg PO DAILY Cholesterol 03/16/19 05/15/23 cyclobenzaprine 10 mg tablet 10 mg PO BIDP PRN Muscle Spasm 03/16/19 05/15/23 triamterene 37.5 1 each PO DAILY Fluid 03/17/19 05/15/23 mg-hydrochlorothiazide 25 mg capsule bupropion HCl 150 mg 24 hr tablet, 1 tab PO DAILY Anxiety 07/24/21 05/15/23 extended release meloxicam 7.5 mg tablet 7.5 mg PO DAILY Pain 07/24/21 05/15/23 Previous Rx's Medication Instructions Recorded ipratropium 0.5 mg-albuterol 3 mg 3 ml inhalation QID PRN Wheezing 07/25/21 (2.5 mg base)/3 mL nebulization ##90 soln ondansetron HCl 4 mg tablet 4 mg PO Q8H PRN nausea and 01/04/23 vomiting 5 days #30 tabs cefdinir 300 mg capsule 300 mg PO BID 7 days #14 caps 05/29/23 clindamycin HCl 150 mg capsule 450 mg (3 x 150 mg) PO Q6H otitis 06/07/23 media 7 days #84 caps ondansetron 4 mg disintegrating 4 mg PO Q8H PRN nausea and 06/07/23 tablet vomiting 4 days #12 tabs Allergies Allergy/AdvReac Type Severity Reaction Status Date / Time cefdinir Allergy Rash Verified 06/07/23 20:41 Penicillins Allergy Unknown Verified 05/15/23 08:51 allergy reaction Sulfa (Sulfonamide Allergy Unknown Verified 05/15/23 08:51 Antibiotics) allergy reaction PFSH [facility] Disclaimer: The information contained in this section may have been updated after the patient was seen, as this information can be updated by other users. Medical History Diabetes mellitus, type 2 Hyperlipidemia Hypertension Surgical History History of colonoscopy Family History Other Family history of stroke Social History Smoking Status: Never smoker alcohol intake: never substance use type: marijuana current occupational status: unemployed Travel in the last 8 weeks: None household members: spouse housing: other caffeine: No ROS Obtained: Yes Systems reviewed as appropriate & no additional complaints except as documented Physical Exam General General appearance: alert and in no apparent distress Head Head exam: atraumatic and normocephalic Eye Eye exam: Present PERRL and EOMI ENT ENT exam: Present normal oropharynx, mucous membranes moist and other (No external auditory canal inflammation bilaterally); Absent TM's normal bilaterally (Left restorationism panic membrane appears sclerotic, no significant bulge, cone light reflex present. Right tympanic membrane is erythematous with purulent middle ear effusion.) Neck Neck exam: Present normal inspection Chest Chest inspection: Present normal inspection and symmetric chest wall rise Respiratory Respiratory exam: Absent respiratory distress Cardiovascular Cardiovascular exam: Present regular rate and normal rhythm Abdominal Exam Abdominal exam: Present soft Extremities Exam Extremities exam: Present normal inspection Neurological Exam Neurological exam: Present alert and CN II-XII intact; Absent motor sensory deficit Psychiatric Psychiatric exam: Present normal affect Skin Skin exam: Present warm and dry Medical Decision Making Marcio Inquiry Pt receiving controlled substance: No Orders (Tests/Meds): ED MEDICATIONS Generic Name Dose Route Start Last Admin Trade Name Evaristoq PRN Reason Stop Dose Admin Acetaminophen 500 mg 06/07/23 20:35 Acetaminophen 500mg Tab PO 06/07/23 20:36 ONCE ONE Clindamycin HCl 450 mg 06/07/23 20:35 Clindamycin 150mg Capsule PO 06/07/23 20:36 ONCE ONE Ibuprofen 600 mg 06/07/23 20:35 Ibuprofen 600 Mg Tablet PO 06/07/23 20:36 ONCE ONE Ondansetron HCl 4 mg 06/07/23 20:35 Ondansetron 4mg Odt SL 06/07/23 20:36 ONCE ONE Medical Decision Narrative: In summary patient is a 52-year-old female past medical history described above presents emergency department for evaluation of ear pain. Patient has persistent right-sided otitis media, improved otitis externa and pharyngitis. Patient is ranging her neck freely, hemodynamically stable, afebrile, no tachycardia. Given this patient will be prescribed a course of clindamycin for which the first dose will be administered in the ER and was given return precautions will follow-up with her family doctor. Of note I would not consider this a treatment failure rather patient had a adverse effect to cefdinir for completion. Critical Care Critical Care Time Critical Care Time: No
[2023-06-07] MEDS: IBUPROFEN 600 MG TABLET PO (20:46)
[2023-06-07] MEDS: ONDANSETRON 4MG ODT 4 MG SL (20:46)
[2023-06-07] MEDS: ACETAMINOPHEN 500MG TAB 500 MG PO (20:46)
[2023-06-07] MEDS: CLINDAMYCIN 150MG CAPSULE 450 MG PO (20:46)
[2023-06-07 21:00] VITALS: BP 150/81; PULSE 73; RESP 18; TEMP 36.7; O2SAT 96
== END 2023-06-07 21:02 | disposition home or self-care (01) ==
PROVIDERS: Emergency Provider Emergency Medicine; PCP Internal Medicine Adolescent Medicine
DX: H66.93 Otitis media, unspecified, bilateral (principal); R50.9 Fever, unspecified; J02.9 Acute pharyngitis, unspecified; E11.9 Type 2 diabetes mellitus without complications; E78.5 Hyperlipidemia, unspecified; I10 Essential (primary) hypertension
CPT/HCPCS: 99283

== ENCOUNTER 2023-11-23 12:54 | Outpatient (CLI) | payer OTHER, SELFPAY ==
--- NOTE | 2023-11-23 13:00 | XR_ITS ---
FINAL REPORT CLINICAL HISTORY: SCREENING/ PAIN PT STATES RIGHT HIP PAIN WORSE THAN LEFT COMPARISON: None FINDINGS: LEFT HIP: Two views of the left hip with an AP view of the pelvis demonstrate no acute fracture or dislocation. There is mild degenerative change. The visualized bony structures are well aligned. No soft tissue abnormality is seen. IMPRESSION: Mild degenerative change without acute bony abnormality. Reviewed, Interpreted and Dictated by Pierre Summers III, MD Transcribed by Adamaris Ng Authenticated and . [facility]
--- NOTE | 2023-11-23 13:00 | MM_ITS ---
PROCEDURE INFORMATION: Exam: MG Bilateral Screening 3D Mammography Exam date and time: 11/23/2023 1:05 PM Age: 53 years old Clinical indication: Screening examination TECHNIQUE: Imaging protocol: Bilateral Screening tomosynthesis and 2D mammography including computer-aided detection (CAD) when performed. COMPARISON: 1. MG MM DIG SCREENING MAMM BI W/CAD 06/22/2022 8:04 AM 2. MG MM DIG SCREENING MAMM BI W/CAD 05/27/2021 7:58 AM FINDINGS: MAMMOGRAPHY: Breast composition: There are scattered areas of fibroglandular density. Mass: None. Architectural distortion: None. Calcifications: No suspicious calcifications. Asymmetric density: None. Skin thickening: None. Axillary adenopathy: None. IMPRESSION: No mammographic evidence of malignancy. Annual screening is recommended unless otherwise clinically indicated. ASSESSMENT: BI-RADS Category 1: Negative.
--- NOTE | 2023-11-23 13:00 | XR_ITS ---
FINAL REPORT CLINICAL HISTORY: PELVIS TAKEN UNDER LEFT HIP ORDER PT STATES RIGHT HIP PAIN WORSE THAN LEFT COMPARISON: None FINDINGS: RIGHT HIP Two views of the right hip demonstrate no acute fracture or dislocation. There are mild degenerative changes. The visualized bony structures are well aligned. No soft tissue abnormality is seen. IMPRESSION: Mild degenerative change without acute bony abnormality. Reviewed, Interpreted and Dictated by Pierre Summers III, MD Transcribed by Adamaris Ng Authenticated and [facility]
== END 2023-11-23 23:59 | disposition home or self-care (01) ==
LOC: RAD 12:55
PROVIDERS: PCP Internal Medicine Adolescent Medicine; Visit Provider Nurse Practitioner Family
DX: M25.551 Pain in right hip (principal); M25.552 Pain in left hip; Z12.31 Encounter for screening mammogram for malignant neoplasm of breast
CPT/HCPCS: 73502; 77063; 77067

== ENCOUNTER 2023-12-20 15:00 | Outpatient (RCR) | payer OTHER, SELFPAY ==
--- NOTE | 2023-11-27 15:50 | HMH.PTOPEV ---
PT Outpatient Evaluation Rehab PT Outpatient Evaluation Start: 11/27/23 14:57 Freq: Status: Active Protocol: Document 11/27/23 14:57 PDESEROUX (Rec: 11/27/23 15:50 [email or web address] [id number]) E-signed By Thong Saini, PT Outpatient Therapy Subjective History Subjective History Pt. is a 53 year old female who presents to [facility] Outpatient Physical Therapy Services in [place] for the initial evaluation this date( 11/27/23) w/ c/o subacute and constant RLE hip and buttock P !, stiffness, and pressure of insidious onset 2 months ago. Pt. reports symptoms worsen when she sits and ambulates for a period of time . Pt. also reports having difficulty w/ bending over and picking objects up. Recent diagnostic imaging indicated mild degenerative changes in RLE hip jt. Pt. denies having injections for current complaint. Pt. reports having some symptom relief w/ Tylenol Arthritis medicine. Pt . reports she is unable to sleep on her right side, ride her motorcycle, go for walks, nor lift 62# boxes for work secondary to c/o P!. Current medications include Wellbutrin , Meloxicam(instructed per MD to discontinue at this time secondary to kidney failure ) , Atorvastatin, and Flexeril. PMH includes Hypertension, Hyperlipidemia, Osteoarthritis , Hernia Repair, and Cholecystectomy. New diagnosis of cancer in past 12 No months? Chief Complaint Pain,Spasms,Stiff,Catches/ Locks,Gives out/Unstable, Paresthesia Symptom Type Sharp,Stabbing,Burning, Shooting Symptoms Relieved By Rest/Positioning,Ice,OTC Meds Symptoms Aggravated By Sitting,Bending/Stooping, Physical Activity,Twisting, Walking,Lifting Prior Functional Limitations None Current Functional Limitations Lifting,Driving,Sleeping, Sitting,Recreation Activity, Walking,Bending/Stooping Symptom Description Constant but Variable,Activity Dependent Level of pain today (0-10) 8 Pain scale - at its best (0-10) 6 Pain scale - at its worst (0-10) 10 Lumbopelvic Eval Posture Thoracic Spine Posture Standing Position Neutral Lumbar Spine Posture Standing Position Neutral Assistive device Assistive Devices None / NA Gait Observation General Gait Pattern Observation Antalgic Gait,Decrease Weight Bear (R),Decrease Stride Lngth (L) Palapation tenderness right lumbar spinal tenderness Yes: L5/S1 paraspinal tenderness Yes: R-sided adjacent LSPS to lumbar spinal TTP above buttock tenderness Yes: piriformis mm. Lumbar/Sacral Palpation Findings Tenderness,Spasm Lumbar/Sacral Palpation Overall Comment grade 4 +TTP to assessment above Accessory Movement L-spine Vertebrae Accessory Movements [place],Right P/A that Elicit Symptoms [place] L5 right S1 right Range of Motion Lumbar Spine Active Flexion Range of 61 Motion (degrees) Lumbar Spine Active Extension Range of 9 Motion (degrees) Left Lumbar Spine Lateral Flexion Active 19 Range of Motion (degrees) Right Lumbar Spine Lateral Flexion 12 Active Range of Motion (degrees) Lumbar Spine ROM Limitations Soft Tissue Tightness,Pain Manual Muscle Test Right Knee Extension Strength Grade 4 Good Knee Flexion Strength Grade 4- Good- Hip Flexion Strength Grade 4- Good- Hip Abduction Strength Grade 4 Good Hip Adduction Strength Grade 4 Good Hip External Rotation Strength Grade 4- Good- Hip Internal Rotation Strength Grade 4- Good- Hip Extension Strength Grade 4 Good Gluteus Jorge Luis Strength Grade 4 Good Extensor Hallucis Longus Strength Grade 4 Good Ankle Dorsiflexion Strength Grade 4 Good Gastronemius/Soleus Strength Grade 4 Good DTR Rt Patellar 2+ Lt Patellar 2+ Rt Gastroc/Soleus 0 Lt Gastroc/Soleus 0 Altered Sensation Bilateral Comment vocalized light touch sensation symmetrical in BLEs Special Tests Lumbar Spine Screen Positive Hip Scouring ([facility]rant) Test Positive Right Hip Thong ([facility]) Test Positive Right Hip Piriformis Test Positive Right Hip Bowstring (Cram) Test Positive Right Sciatic Nerve Tension Test Positive Right Lumbar [place] Distraction Test/Manual Positive Traction Outpatient Therapy Assessment Impairments Problems/Impairmments Palpation Tenderness,Impaired Range of Motion,Impaired Strength,Impaired Endurance, Impaired Gait Pattern,Impaired Walking,Impaired Sitting, Impaired Lifting,Impaired Bending,Impaired Recreational Activities,Impaired Work Activities,Impaired Desk/ Computer Activities,Subjective C/O Pain,Impaired Self Care/ Self Management Prognosis Rehab Potential Good Comment w/ HEP compliancy Clinical Impression Consistent with Diagnosis Yes Consistent with lumbar radiculopathy, R Short Term Goals Number of Weeks 2 Decreased Palpation Tenderness Yes: grade 1-2 +TTP to TTP assessment above Decrease Subjective C/O Pain Yes: worse;/10 Patient to be Ind w/ HEP Yes Cam Specialist Goals Number of Weeks 4 Decreased Palpation Tenderness Yes: grade 1 +TTP to TTP assessment above Increase Range of Motion Yes: lumbar/RLE hip ROM WFL grossly w/o difficulty Increase Strength Yes: 4+ to 5/5 RLE hip MMT scores grossly w/o difficulty Improve Gait Pattern without Assistive Yes: Pt. will demonstrate a Device normal gait pattern x50ft. w/o difficulty Increase Ability to Walk Yes Increase Ability to Stand Yes Increase Ability to Sit Yes Improve Ability to Bend Yes Return to Recreational Activities Yes: walking/riding motorcycle Improve Tolerance to Work Activities Yes: lifting boxes w/o difficulty Improve Oswestry Score Yes Decrease Subjective C/O Pain Yes: worse:1-2 Improve Self Care/Self Management Yes: Pt. will be able to sleep w/o difficulty Patient to be Ind w/ Advanced HEP Yes Outpatient Therapy Plan of Care Treatment Plan May Include Therapeutic Exercise Including Home Yes Exercise Program Manual Therapy Techniques Yes Neuromuscular Re-education Yes Therapeutic Activities to Return to Yes Previous Functional/Work Level ADL/Self Care Education Yes Mechanical Traction Yes Dry Needling Yes Thermal Modalities Yes Electrical Stimulation Yes Ultrasound/Phonophoresis Yes Iontophoresis Yes Vasopneumatic Compression Pump Yes Massage Yes Eval/Re-Eval Yes Frequency Times per week 2 Duration Number of Weeks 4 Addendums This patient is a candidate for social No or vocational rehab? Patient/Guardian verbally acknowledges Yes understanding of treatment program and consents to further treatment? Patient/Guardian verbally acknowledges Yes understanding of diagnosis, prognosis and goals for treatment? Eval Complexity PT Charges 13564 - Moderate Complexity Shoulder/Elbow Eval Shoulder Objective Measurements Elbow Objective Measurements PHYSICIAN CERTIFICATION: I certify the specified therapy services for Heena Capone are required, authorized, and reviewed every 30 days.
== END 2024-01-22 15:44 | disposition home or self-care (01) ==
LOC: PT 15:00
PROVIDERS: Visit Provider Nurse Practitioner Family
DX: M25.551 Pain in right hip (principal); M54.50 Low back pain, unspecified
CPT/HCPCS: 97014; 97110; 97140; 97163; G0283

== ENCOUNTER 2024-03-25 15:55 | Emergency (ER) | payer OTHER, SELFPAY ==
[2024-03-25 15:57] VITALS: BP 172/98; PULSE 76; RESP 16; TEMP 36.8; O2SAT 100; BMI 33.8
[2024-03-25 16:02] VITALS: BP 172/98; PULSE 76; O2SAT 98
--- NOTE | 2024-03-25 16:03 | ED_ITS ---
<Statement entered by Ana Rosa Soler DO - 03/26/24 00:01> I was consulted by the MAGGY, and we discussed the complexity of the problems being addressed. I approved the treatment and management plan for this patient's care in the emergency department, thus performing a substantive portion of the medical decision making. Ana Rosa Soler DO Discharge Plan Disposition Patient Disposition: Home, Self-Care Condition: Good Prescriptions Prescriptions: No Action meloxicam 7.5 MG tablet 7.5 mg PO DAILY bupropion HCl 150 MG tablet extended release 24 hr 1 tab PO DAILY ipratropium-albuterol 3 ML solution for nebulization 3 ml IH QID PRN (Reason: Wheezing) Qty: 90 0RF ondansetron HCl 4 mg tablet 4 mg PO Q8H PRN (Reason: nausea and vomiting) 5 Days Qty: 30 0RF cefdinir 300 mg capsule 300 mg PO BID 7 Days Qty: 14 0RF cyclobenzaprine 10 MG tablet 10 mg PO BIDP PRN (Reason: Muscle Spasm) Patient Comments: States she only takes it once a day. atorvastatin 40 MG tablet 40 mg PO DAILY triamterene-hydrochlorothiazid 1 EACH capsule 1 each PO DAILY clindamycin HCl 150 mg capsule 450 mg PO Q6H 7 Days Qty: 84 0RF ondansetron 4 mg tablet,disintegrating 4 mg PO Q8H PRN (Reason: nausea and vomiting) 4 Days Qty: 12 0RF Referrals Follow up/Referrals: Robert Martel DO [Staff Physician] - See instructions Kenroy Mariano MD [Primary Care Provider] - See instructions Activity Restrictions/Add. Instructions Additional Instructions/Restrictions: As we discussed you can use the wrist brace to help support your wrist. Continue to take Tylenol Motrin as needed for symptoms. I have given you the name of Dr. Martel for orthopedics has if you have continued problems you will likely need further workup. Return to ER for any worsening signs symptoms as needed. Clinical Impressions Clinical Impression: Contusion of left wrist Qualifiers: Encounter type: initial encounter Qualified Code(s): S60.212A - Contusion of left wrist, initial encounter Print Language Print Language: Zimbabwean Discharge ED Provider: Ana Rosa Soler General Adult HPI General Chief complaint: Extremity Injury, Upper Stated complaint: AO01/12 RT wrist inj Time Seen by Provider: 03/25/24 16:02 History of Present Illness HPI narrative: Patient presents for evaluation of left wrist/forearm pain. Patient fell on Sunday and she initially thought she suffered no injury. However her left wrist is continued to hurt and has actually hurting more. Patient denies any numbness or tingling and reports that pain hurts at the ulnar side at the wrist. She denies any relieving symptoms but states picking up heavy pots (she works as a cook in a restaurant kitchen) makes it worse. Related Data Home Medications ?Medication ?Instructions ?Recorded ?Confirmed atorvastatin 40 mg tablet 40 mg PO DAILY Cholesterol 03/16/19 05/15/23 cyclobenzaprine 10 mg tablet 10 mg PO BIDP PRN Muscle Spasm 03/16/19 05/15/23 triamterene 37.5 1 each PO DAILY Fluid 03/17/19 05/15/23 mg-hydrochlorothiazide 25 mg capsule bupropion HCl 150 mg 24 hr tablet, 1 tab PO DAILY Anxiety 07/24/21 05/15/23 extended release meloxicam 7.5 mg tablet 7.5 mg PO DAILY Pain 07/24/21 05/15/23 Previous Rx's ?Medication ?Instructions ?Recorded ipratropium 0.5 mg-albuterol 3 mg 3 ml inhalation QID PRN Wheezing 07/25/21 (2.5 mg base)/3 mL nebulization ##90 soln ondansetron HCl 4 mg tablet 4 mg PO Q8H PRN nausea and 01/04/23 vomiting 5 days #30 tabs cefdinir 300 mg capsule 300 mg PO BID 7 days #14 caps 05/29/23 clindamycin HCl 150 mg capsule 450 mg (3 x 150 mg) PO Q6H otitis 06/07/23 media 7 days #84 caps ondansetron 4 mg disintegrating 4 mg PO Q8H PRN nausea and 06/07/23 tablet vomiting 4 days #12 tabs Allergies Allergy/AdvReac Type Severity Reaction Status Date / Time cefdinir Allergy Rash Verified 06/07/23 20:41 Penicillins Allergy Unknown Verified 05/15/23 08:51 allergy reaction Sulfa (Sulfonamide Allergy Unknown Verified 05/15/23 08:51 Antibiotics) allergy reaction PFSH PFS Disclaimer: The information contained in this section may have been updated after the patient was seen, as this information can be updated by other users. Medical History Diabetes mellitus, type 2 Hyperlipidemia Hypertension Surgical History History of colonoscopy Family History Other Family history of stroke Social History Smoking Status: Never smoker alcohol intake: never substance use type: marijuana current occupational status: unemployed Travel in the last 8 weeks: None household members: spouse housing: other caffeine: No Have you lived/traveled outside US in past 30 days?: No Contact w/someone who lives/traveled outside US past 30 days?: No Exposure to someone with infectious disease in past 14 days?: No Do you have a fever (greater than 100.4 F or 38 C)?: No Have you tested positive for COVID-19: No Exposed to someone with COVID-19 in past 14 days?: No Do you have a sore throat?: No Do you have a cough?: No Do you have any weakness?: No Do you have any diarrhea?: No Are you experiencing any unusual bleeding?: No Do you have any muscle aches/pain?: No Do you have any abdominal pain?: No Are you experiencing loss of taste or smell?: No Other Medical History Have you received the Flu Vaccine for this season: No Have you received the Pneumonia Vaccine: No ROS Obtained: Yes Systems reviewed as appropriate & no additional complaints except as documented Physical Exam General General appearance: alert and in no apparent distress Respiratory Respiratory exam: Present normal lung sounds bilaterally Cardiovascular Cardiovascular exam: Present regular rate Neurological Exam Neurological exam: Present alert and oriented X3 Skin Skin exam: Present normal color Medical Decision Making Medical Records Medical records reviewed: Yes I reviewed the patient's medical records. Screening: Per USPSTF and CDC recommendations, given the prevalence of disease in our region, it is our hospital?s policy to screen for HIV and viral Hepatitis for all patients aged 18 and over and those with ongoing risk factors. Marcio Inquiry Pt receiving controlled substance: No Vital Signs: 03/25/24 15:57 03/25/24 16:02 03/25/24 16:30 Temperature 98.2 F Temperature Source Oral Pulse Rate 76 72 Pulse Rate [Left Radial] 76 Respiratory Rate 16 Blood Pressure 172/98 H 149/88 H Blood Pressure [Right Arm] 172/98 H Blood Pressure Mean Blood Pressure Mean [Right Arm] 122 Blood Pressure Source [Right Arm] Automatic Cuff Blood Pressure Position [Right Arm] Sitting 02 Sat by Pulse Oximetry 100 98 100 Oxygen Delivery Method Room Air Room Air Room Air 03/25/24 17:16 03/25/24 17:31 03/25/24 17:40 Temperature 98.2 F Temperature Source Pulse Rate 69 71 72 Pulse Rate [Left Radial] Respiratory Rate 18 Blood Pressure 164/96 H 149/100 H 149/100 H Blood Pressure [Right Arm] Blood Pressure Mean 118 Blood Pressure Mean [Right Arm] Blood Pressure Source [Right Arm] Blood Pressure Position [Right Arm] 02 Sat by Pulse Oximetry 100 99 Oxygen Delivery Method Room Air Room Air Room Air Orders (Tests/Meds): ED MEDICATIONS Discontinued Medications Generic Name Dose Route Start Last Admin Trade Name Freq PRN Reason Stop Dose Admin Acetaminophen 1,000 mg 03/25/24 16:22 03/25/24 16:35 Acetaminophen 500mg Tab PO 03/25/24 16:23 1,000 mg ONCE ONE Administration Lactated Ringer's 1,430 mls @ 715 mls/hr 03/25/24 16:17 03/25/24 16:28 Lactated Ringer's 1000 Ml Bag 30 ml/kg infuse over 2 hr (1430 ml) 03/25/24 18:16 Not Given IV .Q2H ONE Ibuprofen 800 mg 03/25/24 16:22 03/25/24 16:35 Ibuprofen 400 Mg Tablet PO 03/25/24 16:23 800 mg ONCE ONE Administration Ondansetron HCl 4 mg 03/25/24 16:17 03/25/24 16:28 Ondansetron 4mg/2ml Vial IV 03/25/24 16:18 Not Given ONCE ONE ORDERS Category Date Time Status Elbow XR left mininum 3 views [XR elbow LT min 3V] Stat Exams 03/25/24 16:21 Completed Forearm XR left 2 views [XR forearm LT 2V] Stat Exams 03/25/24 16:21 Completed Hand XR left minimum 3 views [XR hand LT min 3V] Stat Exams 03/25/24 16:21 Completed Wrist XR left minimum 3 views [XR wrist LT min 3V] Stat Exams 03/25/24 16:21 Completed Medical Decision Narrative: In summary patient is a 53-year-old female who presents to the emergency department for evaluation of left wrist/distal forearm pain. Patient is hemodynamically stable upon arrival, afebrile. Physical exam is remarkable for tenderness to palpation at the ulnar styloid however there is no palpable any deformity. There is no ecchymosis edema abrasion noted. Patient has full range of motion but has pain upon ulnar deviation flexion along with flexion extension at the wrist. She is neurovascular intact distally. She has full range of motion of the entire right upper extremity without deficits.. Differential diagnosis includes contusion versus sprain versus fracture. Initial workup will be conducted with plain film x-rays. Initial interventions were considered however patient is already taking Tylenol Motrin thus deferred. Initial workup reviewed by me and my informal interpretation does not reveal any acute bony fracture prior to radiology read.. Upon repeat evaluation I had a right discussion with her findings and my recommendations. Via patient directed decision making and discharge patient has elected to except a wrist splint for support at work as well as a referral to orthopedics for further evaluation for any more concerning soft tissue injury.. Given this patient is appropriate for discharge with a wrist splint and referral to orthopedics and strict return precautions. Critical Care Critical Care Time Critical Care Time: No
--- NOTE | 2024-03-25 16:13 | PC.NURSE ---
TITUS Tong at BS for patient eval
--- NOTE | 2024-03-25 16:21 | XR_ITS ---
PROCEDURE INFORMATION: Exam: XR Left Forearm Exam date and time: 03/25/2024 4:31 PM Age: 53 years old Clinical indication: Injury or trauma; Fall; Blunt trauma (contusions or hematomas); Arm, lower; Left TECHNIQUE: Imaging protocol: Radiologic exam of the left forearm. Views: 2 views. COMPARISON: CR XR WRIST LT MIN 3V 03/25/2024 4:25 PM FINDINGS: Bones/joints: Normal. No acute fracture identified. Soft tissues: Normal. IMPRESSION: No acute findings.
--- NOTE | 2024-03-25 16:21 | XR_ITS ---
PROCEDURE INFORMATION: Exam: XR Left Elbow Exam date and time: 03/25/2024 4:28 PM Age: 53 years old Clinical indication: Injury or trauma; Fall; Blunt trauma (contusions or hematomas); Elbow; Left TECHNIQUE: Imaging protocol: Radiologic exam of the left elbow. Views: 3 or more views. COMPARISON: CR XR WRIST LT MIN 3V 03/25/2024 4:25 PM FINDINGS: Bones/joints: Normal. No acute fracture identified. Soft tissues: Normal. IMPRESSION: No acute findings.
--- NOTE | 2024-03-25 16:21 | XR_ITS ---
PROCEDURE INFORMATION: Exam: XR Left Hand Exam date and time: 03/25/2024 4:24 PM Age: 53 years old Clinical indication: Injury or trauma; Fall; Blunt trauma (contusions or hematomas); Hand; Left; Additional info: Fall from last week, sore. TECHNIQUE: Imaging protocol: Radiologic exam of the left hand. Views: 3 or more views. COMPARISON: CR XR FINGER LT MIN 2V 12/09/2019 12:53 PM FINDINGS: Bones/joints: No acute fracture identified. A incidental 18 x 6 x 6 mm intramedullary benign-appearing bilobed lucent bone lesion noted in the mid to distal 5th proximal phalangeal with associated well-defined sclerotic margins and mild thinning of the cortex. This lesion is unchanged from x-ray of 12/09/2019 consistent with benign process. Mild internal ground-glass matrix may also be present. No periosteal reaction. Soft tissues: Normal. IMPRESSION: 1. No acute abnormality. 2. Incidental stable benign-appearing lucent bone lesion of the 5th proximal phalange. Favored consideration is a enchondroma. Patient may be at risk for developing pathologic fracture. Orthopedic consultation regarding this finding is advised. Additionally consider additional follow-up x-ray in 1 year to ensure continued stability or sooner if clinically indicated if surgery is not anticipated.
--- NOTE | 2024-03-25 16:21 | XR_ITS ---
PROCEDURE INFORMATION: Exam: XR Left Wrist Exam date and time: 03/25/2024 4:25 PM Age: 53 years old Clinical indication: Injury or trauma; Fall; Blunt trauma (contusions or hematomas); Wrist; Left TECHNIQUE: Imaging protocol: Radiologic exam of the left wrist. Views: 3 or more views. COMPARISON: CR XR HAND LT MIN 3V 03/25/2024 4:24 PM FINDINGS: Bones/joints: Normal. No acute fracture identified. Soft tissues: Normal. IMPRESSION: No acute findings.
[2024-03-25 16:30] VITALS: BP 149/88; PULSE 72; O2SAT 100
--- NOTE | 2024-03-25 16:34 | PC.NURSE ---
pt ambulatory to radiology
[2024-03-25] MEDS: ACETAMINOPHEN 500MG TAB 1000 MG PO (16:35)
[2024-03-25] MEDS: IBUPROFEN 400 MG TABLET 800 MG PO (16:35)
--- NOTE | 2024-03-25 16:44 | PC.NURSE ---
pt returned from radiology
--- NOTE | 2024-03-25 16:45 | PC.NURSE ---
Addendum entered by Chelsea Christine, GEORGE 03/25/24 16:46: XRAY NOT CT Original Note: PT ARRIVED BACK TO ROOM FROM CT
[2024-03-25 17:16] VITALS: BP 164/96; PULSE 69; O2SAT 100
[2024-03-25 17:31] VITALS: BP 149/100; PULSE 71; O2SAT 99
[2024-03-25 17:40] VITALS: BP 149/100; PULSE 72; RESP 18; TEMP 36.8; O2SAT 99
== END 2024-03-25 17:43 | disposition home or self-care (01) ==
PROVIDERS: Emergency Provider Emergency Medicine; PCP Internal Medicine Adolescent Medicine
DX: S60.212A Contusion of left wrist, initial encounter (principal); W19.XXXA Unspecified fall, initial encounter; Y93.9 Activity, unspecified; Y92.9 Unspecified place or not applicable; M25.532 Pain in left wrist; M25.522 Pain in left elbow; M79.642 Pain in left hand; M79.602 Pain in left arm
CPT/HCPCS: 73080; 73090; 73110; 73130; 99283

== ENCOUNTER 2024-05-26 07:28 | Outpatient (CLI) | payer OTHER, SELFPAY ==
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
--- NOTE | 2024-05-26 07:29 | MR_ITS ---
FINAL REPORT CLINICAL HISTORY: Lt wrist pain arthrogram FINDINGS: Injected contrast is extra-articular. Repeat exam with MR arthrogram will be repeated including joint injection. Final report will be dictated at that time. Reviewed, Interpreted and Dictated by Annemarie Prakash MD Transcribed by Betsy Resendiz Authenticated and [facility]
[2024-05-26] MEDS: SODIUM CHLORIDE 0.9% 10ML SYR (RAD ONLY) 10 ML IV (08:50)
[2024-05-26] MEDS: IOPAMIDOL-370 (76%);100ML BOTTLE 15 ML IV (08:50)
[2024-05-26] MEDS: GADOTERIDOL INJ 10ML SYRINGE IV (09:50)
== END 2024-05-26 23:59 | disposition home or self-care (01) ==
LOC: RAD 07:29
PROVIDERS: PCP Internal Medicine Adolescent Medicine; Visit Provider Physician Assistant Surgical
DX: M25.532 Pain in left wrist (principal); S63.502A Unspecified sprain of left wrist, initial encounter
CPT/HCPCS: 73115; 73222; A9576; Q9967

== ENCOUNTER 2024-06-03 08:52 | Outpatient (CLI) | payer OTHER, SELFPAY ==
--- NOTE | 2024-06-03 09:30 | IR_ITS ---
FINAL REPORT CLINICAL HISTORY: left wrist pain 25.78 DAP 0.40 FLUORO TIME FINDINGS: Arthrogram Wrist injection for MRI arthrogram HISTORY: Left wrist pain. PROCEDURE: After informed consent was obtained, a time-out was performed. Utilizing local anesthesia and sterile technique, with direct fluoroscopic guidance, access to the joint was obtained . A small amount of contrast was injected to confirm needle tip location. Additional gadolinium contrast was injected. IMPRESSION: Status post injection for MRI arthrogram without immediate complication. Please see MRI report. Fluoroscopy time: 0.4 minutes Fluoro dose: 25.78 DAP in uGym2 Films reviewed , interpreted and dictated by Dr. Cathie Munoz. Transcribed by Mina Noble PA-C. Reviewed, Interpreted and Dictated by Cathie Munoz MD Transcribed by TITUS Flores Authenticated and [facility]
[2024-06-03] MEDS: IOPAMIDOL-370 (76%);100ML BOTTLE 17 ML IV (09:50)
--- NOTE | 2024-06-03 09:57 | MR_ITS ---
FINAL REPORT TECHNIQUE: Multiplanar and multisequence imaging of the left wrist was obtained after the intra-articular injection of a dilute gadolinium contrast solution. CLINICAL HISTORY: LT wrist pain pt fell ulnar side wrist pain with swelling COMPARISON: None FINDINGS: Motion limits sensitivity of this exam. Bones and joints: No bone marrow edema. No fracture. No pathologic marrow replacement. Mild multijoint degenerative disease is most pronounced at the first carpometacarpal joint. Ligaments: Scapholunate distance and ligament appear intact. No contrast crosses the scapholunate ligament. Lunotriquetral ligament not well-seen due to motion. Dorsal intercarpal ligament intact. No convincing defect of the TFCC. Muscles and tendons: Flexor tendons intact. Enlargement of the extensor carpi ulnaris tendon with what appears to be some abnormal signal intensity suggesting ECU tendinosis. Other: Remaining soft tissues are within normal limits. IMPRESSION: Exam limited by motion. No convincing ligament or TFCC tear. Probable ECU tendinosis. Reviewed, Interpreted and Dictated by Cathie Munoz MD Transcribed by Adamaris Ng Authenticated and [facility]
[2024-06-03] MEDS: GADOTERIDOL INJ 10ML SYRINGE IV (11:20)
== END 2024-06-03 23:59 | disposition home or self-care (01) ==
LOC: RAD 08:53
PROVIDERS: PCP Internal Medicine Adolescent Medicine; Visit Provider Physician Assistant Surgical
DX: M25.532 Pain in left wrist (principal); S63.502A Unspecified sprain of left wrist, initial encounter; S60.212A Contusion of left wrist, initial encounter
CPT/HCPCS: 73115; 73222; A9576; Q9967

== ENCOUNTER 2024-07-27 07:34 | Emergency (ER) | payer OTHER, SELFPAY ==
[2024-07-27 07:43] VITALS: BP 149/95; PULSE 72; RESP 20; TEMP 36.6; O2SAT 98; BMI 34.0
[2024-07-27 07:47] LABS: Microscopic, Urine URINE MICROSCOPIC (MICROSCOPIC)
[2024-07-27 07:52] LABS: Appearance,Urine CLOUDY (Clear); Bilirubin,Urine Negative (Negative); Blood, Urine 2+ (Negative); Color,Urine YELLOW (Yellow); Glucose,Urine (UA) Negative (Negative); Ketones,Urine TRACE (Negative); Leukocyte Esterase,Urine 2+ (Negative); Nitrate,Urine Negative (Negative); Protein,Urine 1+ (Negative); Specific Gravity, Urine >= 1.030 (1.005-1.030)
[2024-07-27 08:01] VITALS: BP 152/81; PULSE 67; O2SAT 97
--- NOTE | 2024-07-27 08:19 | ED_ITS ---
Discharge Plan Disposition Patient Disposition: Home, Self-Care Prescriptions Prescriptions: New phenazopyridine [Pyridium] 200 mg tablet 200 mg PO Q8H PRN (Reason: pain) 2 Days Qty: 6 0RF nitrofurantoin monohyd/m-cryst 100 mg capsule 100 mg PO BID 5 Days Qty: 10 0RF Rx Instructions: must administer with a meal/food No Action bupropion HCl 300 mg tablet extended release 24 hr PO Patient Comments: TAKE 1 TABLET BY MOUTH EVERY 24 HOURS meloxicam 7.5 MG tablet 7.5 mg PO DAILY ipratropium-albuterol 3 ML solution for nebulization 3 ml IH QID PRN (Reason: Wheezing) Qty: 90 0RF cyclobenzaprine 10 MG tablet 10 mg PO BIDP PRN (Reason: Muscle Spasm) Patient Comments: States she only takes it once a day. atorvastatin 40 MG tablet 40 mg PO DAILY Referrals Follow up/Referrals: Chelsea Matamoros DO [Staff Physician] - See instructions Kenroy Mariano MD [Primary Care Provider] - See instructions Activity Restrictions/Add. Instructions Additional Instructions/Restrictions: Your urinalysis today was consistent with urinary tract infection and your physical exam for my perspective was normal however you do have symptoms concerning of possible organ prolapse that I did not appreciate therefore I recommend you follow-up with an PHARMACEUTICAL REPRESENTATIVE doctor if you do not improve after antibiotics. Clinical Impressions Clinical Impression: UTI (urinary tract infection) Instructions Patient Instructions: DI for Urinary Tract Infection (UTI), DI for Urinary Tract Infection in Children Print Language Print Language: Sammarinese Discharge ED Provider: Angeline Harris General Adult HPI General Chief complaint: Urogenital-Female Stated complaint: abd pain Time Seen by Provider: 07/27/24 08:06 Mode of Arrival: Ambulatory Source of Information: Patient Description of Symptoms (Recalled from ER Triage Doc. by RN): burning with urination. lower abdominal pressure. feels like my twat is inside out started sunday History of Present Illness HPI narrative: Patient is a 54-year-old female presenting today with what she describes as severe pressure on her vaginal area. This is only going on for a few days. Does say there is some discomfort associated with it but denies any dysuria frequency urgency to me. Has not seen PHARMACEUTICAL REPRESENTATIVE doctor in 20 years given the fact that she has had normal Pap smears. Denies any other significant past medical history. Related Data Home Medications ?Medication ?Instructions ?Recorded ?Confirmed atorvastatin 40 mg tablet 40 mg PO DAILY Cholesterol 03/16/19 05/13/24 cyclobenzaprine 10 mg tablet 10 mg PO BIDP PRN Muscle Spasm 03/16/19 05/13/24 meloxicam 7.5 mg tablet 7.5 mg PO DAILY Pain 07/24/21 05/13/24 bupropion HCl 300 mg 24 hr tablet, mg PO 04/01/24 05/13/24 extended release Previous Rx's ?Medication ?Instructions ?Recorded ipratropium 0.5 mg-albuterol 3 mg 3 ml inhalation QID PRN Wheezing 07/25/21 (2.5 mg base)/3 mL nebulization ##90 soln nitrofurantoin 100 mg PO BID 5 days #10 caps 07/27/24 monohydrate/macrocrystals 100 mg capsule phenazopyridine 200 mg tablet 200 mg PO Q8H PRN pain 2 days #6 07/27/24 (Pyridium) tabs Allergies Allergy/AdvReac Type Severity Reaction Status Date / Time cefdinir Allergy Rash Verified 05/13/24 13:21 Penicillins Allergy Unknown Verified 05/13/24 13:21 allergy reaction Sulfa (Sulfonamide Allergy Unknown Verified 05/13/24 13:21 Antibiotics) allergy reaction PFSH PFSH Disclaimer: The information contained in this section may have been updated after the cooper carreno was seen, as this information can be updated by other users. Medical History Diabetes mellitus, type 2 Hyperlipidemia Hypertension Surgical History History of colonoscopy Family History Other Family history of stroke Social History Smoking Status: Former smoker tobacco type: cigarettes packs per day: 1 alcohol intake: never substance use type: marijuana current occupational status: unemployed Travel in the last 8 weeks?: None household members: spouse housing: other caffeine: No Have you lived/traveled outside [place] in past 30 days?: No Contact w/someone who lives/traveled outside US past 30 days?: No Exposure to someone with infectious disease in past 14 days?: No Do you have a fever (greater than 100.4 F or 38 C)?: No Have you tested positive for COVID-19?: No Exposed to someone with COVID-19 in past 14 days?: No Do you have a sore throat?: No Do you have a cough?: No Do you have any weakness?: No Do you have any diarrhea?: No Are you experiencing any unusual bleeding?: No Do you have any muscle aches/pain?: Yes Do you have any abdominal pain?: No Are you experiencing loss of taste or smell?: No Other Medical History Have you received the Flu Vaccine for this season: No Have you received the Pneumonia Vaccine: No ROS Obtained: Yes All systems reviewed & no additional complaints except as documented Physical Exam General General appearance: alert and in no apparent distress Respiratory Respiratory exam: Present normal lung sounds bilaterally Cardiovascular Cardiovascular exam: Present regular rate Abdominal Exam Abdominal exam: Present soft; Absent distention or tenderness External exam: Present normal external exam Speculum exam: Present normal speculum exam and other (Physiologic discharge no evidence of any vaginal irritation or inflammation no evidence of any organ prolapse) Neurological Exam Neurological exam: Present alert and oriented X3 Medical Decision Making Medical Records Screening: Per USPSTF and CDC recommendations, given the prevalence of disease in our region, it is our hospital?s policy to screen for HIV and viral Hepatitis for a ll patients aged 18 and over and those with ongoing risk factors. Marcio Inquiry Pt receiving controlled substance: No Vital Signs: 07/27/24 07:43 Temperature 97.8 F Temperature Source Oral Pulse Rate [Right] 72 Respiratory Rate 20 Blood Pressure [Right Arm] 149/95 H Blood Pressure Mean [Right Arm] 113 02 Sat by Pulse Oximetry 98 Oxygen Delivery Method Room Air Lab Data Lab Results 07/27/24 07:37: Urine Color Yellow, Urine Appearance Cloudy, Urine pH 6.0, Ur Specific [place] >= 1.030, Urine Protein 1+ A, Urine Glucose (UA) Negative, Urine Ketones Trace, Urine Blood 2+ A, Urine Nitrate Negative, Urine Bilirubin Negative, Urine Urobilinogen 1.0, Ur Leukocyte Esterase 2+ A Orders (Tests/Meds): ED MEDICATIONS Generic Name Dose Route Start Last Admin Trade Name Freq PRN Reason Stop Dose Admin Nitrofurantoin Macrocrystals 100 mg 07/27/24 08:16 Nitrofurantoin 100mg Capsule PO 07/27/24 08:17 ONCE ONE ORDERS Category Date Time Status UA [Urinalysis and Microscopic] Stat Lab 07/27/24 07:37 Results Urine Culture Stat Micro 07/27/24 07:37 Received Medical Decision Narrative: Well-appearing 54-year-old female with above history and physical initially concerning for organ prolapse but I do not appreciate any on external or speculum exam. No significant inflammation or evidence of vaginal infection or an phonatory process at the moment. Urinalysis was consistent with UTI hopefully all of her symptoms are secondary to that we will treat. No indication for any CT imaging at the moment other things remain on the differential such as malignancy etc. but given just a few days of symptoms that is unlikely. I have given her a referral to Dr. Matamoros if she does not improve completely with antibiotics. Patient is aware of this and was discharged in stable condition first dose of antibiotics given in the emergency department. Critical Care Critical Care Time Critical Care Time: No
[2024-07-27 08:21] LABS: Bacteria,Urine 2+ /lpf; WBC,Urine TNTC #/hpf (0-3)
[2024-07-27 08:30] VITALS: BP 146/91; PULSE 70; O2SAT 96
[2024-07-27] MEDS: NITROFURANTOIN 100MG CAPSULE 100 MG PO (08:31)
[2024-07-27 08:38] VITALS: BP 146/91; PULSE 75; RESP 18; TEMP 36.6; O2SAT 97
--- NOTE | 2024-07-29 11:02 | PC.NURSE ---
URINE CULTURE DISCUSSED WITH DR LY, NO NEW ORDERS
== END 2024-07-27 08:39 | disposition home or self-care (01) ==
PROVIDERS: Emergency Provider Student in an Organized Health Care Education/Training Program; PCP Internal Medicine Adolescent Medicine
DX: N39.0 Urinary tract infection, site not specified (principal); R30.0 Dysuria; R10.2 Pelvic and perineal pain
CPT/HCPCS: 81001; 87086; 87088; 87186; 99284

== ENCOUNTER 2024-11-29 07:13 | Emergency (ER) | payer OTHER, SELFPAY ==
--- OUTSIDE RECORDS SUMMARY | 2024-06-14 17:30 | XMS_ITS ---
Author Organization [facility] Address [address] [facility] [address] [place] [address] Care Team Providers Care Logistics Planning Manager Name Role Phone Kenroy Mariano Primary Care Provider Migration, Provider Unavailable Unavailable Allergies Allergen (clinical drug ingredient) Drug/Non Drug Allergy documented on EMR Reaction Allergy Type Onset Date Status PCN (uncoded) unknown Allergy Active SULFA (uncoded) rash Allergy Acti ve [facility] Conversion Encounter Medications Medication SIG (Take, Route, Frequency, Duration) Notes Start Date End Date Status Atorvastatin Calcium 40 MG 1 tab(s) orally once a day; Duration: 90 days Active Fluticasone Propionate 50 MCG/ACT 1 spray(s) intranasally once a day; Duration: 30 days 03/30/2017 Active Triamterene-HCTZ 37.5-25 MG 1 cap(s) orally once a day; Duration: 90 days Active buPROPion HCl ER (XL) 300 MG 1 tab(s) orally every 24 hours; Duration: 90 days Active MiraLax - DIRECTED ORALLY ONCE A DAY *Please review and pick correct strength-formulat ion from [facility] options. If intended option is not shown, discontinue and re-order from Quick Search* 04/07/2024 Active TYLENOL ARTHRITIS 650 MG 1 TAB Q6 HRLY PRN *Please review for potential replacement for e-prescription and drug interaction check* Active Centrum Silver - 1 tab(s) orally once a day Active Magnesium Oxide 400 MG 1 tab(s) orally once a day at bedtime; Duration: 90 days 11/25/2021 Active Cyclobenzaprine HCl 10 MG 1 tab(s) orally twice a day PRN; Duration: 30 days Active Encounters Encounter Location Date Provider Diagnosis [facility] [place] [address] [place] [address] 06/14/2024 Provider Migration Hyperlipemia, idiopathic familial E78.5 ; Primary osteoarthritis involving multiple joints M15.0 ; Leg cramps R25.2 and Chronic constipation K59.09 Assessments Encounter Date Diagnosis (ICD Code) Assessment Notes Treatment Notes Treatment Clinical Notes Section Notes 06/14/2024 Hyperlipemia, idiopathic familial (ICD-10 - E78.5) 06/14/2024 Primary osteoarthritis involving multiple joints (ICD-10 - M15.0) 06/14/2024 Leg cramps (ICD-10 - R25.2) 06/14/2024 Chronic constipation (ICD-10 - K59.09) Plan Of Treatment Medication Medication Name Sig Start Date Stop Date Notes Atorvastatin Calcium 40 MG 1 tab(s) orally once a day; Duration: 90 days Triamterene-HCTZ 37.5-25 MG 1 cap(s) orally once a day; Duration: 90 days buPROPion HCl ER (XL) 300 MG 1 tab(s) orally every 24 hours; Duration: 90 days MiraLax - DIRECTED ORALLY ONCE A DAY 04/07/2024 *Please review and pick correct strength-formulation from [facility] options. If intended option is not shown, discontinue and re-order from Quick Search* Magnesium Oxide 400 MG 1 tab(s) orally once a day at bedtime; Duration: 90 days 11/25/2021 Cyclobenzaprine HCl 10 MG 1 tab(s) orall y twice a day PRN; Duration: 30 days Next Appt Details Provider Name:Brittany Crawford, 12/15/2024 12:00:00 PM, [address], [address], Progress Notes * Heena PETTIT ADOB:[birth year] (54 yo F)Acc No.[id number]:06/14/2024 Patient: Heena DELANEY Provider: Blayne hayes Migration :1970 A ge:54 Y S ex:Female Date:06/14/2024 Address:[place] [address], [id number] Pcp:Kenroy Mariano Subjective: * Chief Complaints: * [facility] . [facility] * Medical History: * Medications: T aking Centrum Silver - Tablet 1 tab(s) orally once a day , Taking TYLENOL ARTHRITIS 650 MG 1 TAB Q6 HRLY PRN , Notes to Pharmacist: *Please review for potential replacement for e-prescription and drug interaction check*, Taking Fluticasone Propionate 50 MCG/ACT Suspension 1 spray(s) intranasally once a day * Allergies: P CN: unknown, SULFA: rash. Objective: * Vitals: Assessment: * Assessment: 1. H yperlipemia, idiopathic familial - E78.5 2 . P rimary osteoarthritis involving multiple joints - M15.0 3 . L eg cramps - R25.2 4 .?Chronic constipation - K59.09 Plan: * Treatment: 2. P rimary osteoarthritis involving multiple joints Refill Cyclobenzaprine HCl Tablet, 10 MG, 1 tab(s), orally, twice a day PRN, 30 days, 60, Refills 1. 3. L eg cramps Refill Magnesium Oxide Tablet, 400 MG, 1 tab(s), orally, once a day at bedtime, 90 days, 90, Refills 1. 4. C hronic constipation Start MiraLax POWDER FOR RECONSTITUTION, -, DIRECTED, ORALLY, ONCE A DAY, Notes to Pharmacist: *Please review and pick correct strength-formulation from [facility] options. If intended option is not shown, discontinue and re-order from Quick Search*. 5. O thers Start Triamterene-HCTZ Capsule, 37.5-25 MG, 1 cap(s), orally, once a day, 90 days, 90 Capsule, Refills 1; S tart buPROPion HCl ER (XL) Tablet Extended Release 24 Hour, 300 MG, 1 tab(s), orally, every 24 hours, 90 days, 90, Refills 1. * * Electronic signature of Prov ider Migration on 11/29/2024 at 07:20 AM EDT Sign off status: Pending * Provider: Blyane hayes Migration Date: 0 06/14/2024 Generated for Prasanth huff/Pascual/Trisha on: 0 11/29/2024 07:20 AM EDT
--- NOTE | 2024-11-29 07:15 | ED_ITS ---
Discharge Plan Disposition Patient Disposition: Home, Self-Care Prescriptions Prescriptions: New ondansetron 4 mg tablet,disintegrating 4 mg PO Q6H PRN (Reason: nausea and vomiting) Qty: 20 0RF pantoprazole [Protonix] 40 mg tablet,delayed release (DR/EC) 40 mg PO DAILY 28 Days Qty: 28 0RF No Action bupropion HCl 300 mg tablet extended release 24 hr PO Patient Comments: TAKE 1 TABLET BY MOUTH EVERY 24 HOURS meloxicam 7.5 MG tablet 7.5 mg PO DAILY ipratropium-albuterol 3 ML solution for nebulization 3 ml IH QID PRN (Reason: Wheezing) Qty: 90 0RF cyclobenzaprine 10 MG tablet 10 mg PO BIDP PRN (Reason: Muscle Spasm) Patient Comments: States she only takes it once a day. atorvastatin 40 MG tablet 40 mg PO DAILY phenazopyridine [Pyridium] 200 mg tablet 200 mg PO Q8H PRN (Reason: pain) 2 Days Qty: 6 0RF nitrofurantoin monohyd/m-cryst 100 mg capsule 100 mg PO BID 5 Days Qty: 10 0RF Rx Instructions: must administer with a meal/food Referrals Follow up/Referrals: Kenroy Mariano MD [Primary Care Provider, Internal Medicine] - See instructions Activity Restrictions/Add. Instructions Additional Instructions/Restrictions: Take Zofran as needed for nausea and vomiting. Take Protonix as prescribed. Follow-up with primary care doctor. Please return to the ER with any new, concerning, worsening symptoms. Clinical Impressions Clinical Impression: Nausea vomiting and diarrhea, Gastroenteritis Instructions Patient Instructions: DI for Diarrhea and Traveler's Diarrhea -- Adult, DI for Diarrhea and Traveler's Diarrhea -- Child, DI for Nausea -- Adult, DI for Nausea -- Child Print Language Print Language: Icelandic Discharge ED Provider: Lyle Aly General Adult HPI General Chief complaint: Nausea/Vomiting/Diarrhea Stated complaint: V/D, spitting up blood Time Seen by Provider: 11/29/24 07:15 Mode of Arrival: Ambulatory Source of Information: Patient Limitations: No Limitations History of Present Illness HPI narrative: 54-year-old female with a past medical history of hypertension and hyperlipidemia presenting with nausea, vomiting, and diarrhea. States that at around 2 AM, she developed acute onset nausea and vomiting and watery diarrhea. States that she has had numerous episodes of watery diarrhea. States that she has also had numerous episodes of emesis, initially nonbloody/nonbilious however progressed to blood-tinged as she felt like she emptied her stomach of everything else and continued to retch. Denies any chest pain or abdominal pain. States that she has been taking doxycycline for an upper respiratory infection since Sunday. No other recent travel or abnormal food exposures. No recent hospitalizations or other antibiotics. Related Data Home Medications ?Medication ?Instructions ?Recorded ?Confirmed atorvastatin 40 mg tablet 40 mg PO DAILY Cholesterol 0 03/16/19 05/13/24 cyclobenzaprine 10 mg tablet 10 mg PO BIDP PRN Muscle Spasm 03/16/19 05/13/24 meloxicam 7.5 mg tablet 7.5 mg PO DAILY Pain 2 05/13/24 bupropion HCl 300 mg 24 hr tablet, mg PO 04/01/2407/04 extended release Previous Rx's ?Medication ?Instructions ?Recorded ipratropium 0.5 mg-albuterol 3 mg 3 ml inhalation QID PRN Wheezing 07/25/21 (2.5 mg base)/3 mL nebulization ##90 soln nitrofurantoin 100 mg PO BID 5 days #10 cap s 07/27/24 monohydrate/macrocrystals 100 mg capsule phenazopyridine 200 mg tablet 200 mg PO Q8H PRN pain 2 days #6 07/27/24 (Pyridium) tabs ondansetron 4 mg disintegrating 4 mg PO Q6H PRN nausea and 11/29/24 tablet vomiting #20 tabs pantoprazole 40 mg tablet,delayed 40 mg PO DAILY 4 wee ks #28 tabs 11/29/24 release (Protonix) Allergies Allergy/AdvReac Type Severity Reaction Status Date / Time cefdinir Allergy Rash Verified 05/13/24 13:21 Penicillins Allergy Unknown Verified 05/13/24 13:21 allergy reaction Sulfa (Sulfonamide Allergy Unknown Verified 05/13/24 13:21 Antibiotics) allergy reaction PFSH [facility] Disclaimer: The information contained in this section may have been updated after the patient was seen, as this information can be updated by other users. Medical History Diabetes mellitus, type 2 Hyperlipidemia Hypertension Surgical History History of colonoscopy Family History Other Family history of stroke Social History Smoking Status: Never smoker alcohol intake: never substance use type: marijuana current occupational status: unemployed Travel in the last 8 weeks?: None household members: spouse housing: other caffeine: No Have you lived/traveled outside US in past 30 days?: No Contact w/someone who lives/traveled outside US past 30 days?: No Exposure to someone with infectious disease in past 14 days?: No Do you have a fever (greater than 100.4 F or 38 C)?: No Have you tested positive for COVID-19?: No Exposed to someone with COVID-19 in past 14 days?: No Do you have a sore throat?: No Do you have a cough?: No Do you have any weakness?: No Do you have any diarrhea?: Yes Are you experiencing any unusual bleeding?: Yes Do you have any muscle aches/pain?: No Do you have any abdominal pain?: No Are you experiencing loss of taste or smell?: No Other Medical History Have you received the Flu Vaccine for this season: No Have you received the Pneumonia Vaccine: No ROS Obtained: Yes All systems reviewed & no additional complaints except as documented Physical Exam General General appearance: alert and in no apparent distress Head Head exam: atraumatic Eye Eye exam: Present normal appearance, PERRL and EOMI Neck Neck exam: Present normal inspection and full ROM Chest Chest inspection: Present symmetric chest wall rise Respiratory Respiratory exam: Present normal lung sounds bilaterally; Absent respiratory distress Cardiovascular Cardiovascular exam: Present regular rate and normal rhythm Abdominal Exam Abdominal exam: Present soft; Absent distention or tenderness Extremities Exam Extremities exam: Present normal inspection Neurological Exam Neurological exam: Present alert and oriented X3 Psychiatric Psychiatric exam: Present normal affect and normal mood Skin Skin exam: Present warm and dry Medical Decision Making Medical Records Medical records reviewed: Yes I reviewed the patient's medical records. Screening: Per USPSTF and CDC recommendations, given the prevalence of disease in our region, it is our hospital?s policy to screen for HIV and viral Hepatitis for all patients aged 18 and over and those with ongoing risk factors. MR Comment: Emergency department visit from 07/27/2024 notable for diagnosis of UTI. Discharged with Macrobid and Pyridium Marcio Inquiry Pt receiving controlled substance: No Vital Signs: 11/29/24 07:23 11/29/24 07:30 11/29/24 08:00 Temperature 98.9 F Temperature Source Oral Pulse Rate 67 63 Pulse Rate [Left Radial] 71 Respiratory Rate 20 18 18 Blood Pressure 132/87 156/93 H Blood Pressure [Right Arm] 153/95 H Blood Pressure Mean 112 114 Blood Pressure Mean [Right Arm] 114 02 Sat by Pulse Oximetry 97 96 96 Oxygen Delivery Method Room Air 11/29/24 08:30 Temperature Temperature Source Pulse Rate 64 Pulse Rate [Left Radial] Respiratory Rate 18 Blood Pressure 138/77 Blood Pressure [Right Arm] Blood Pressure Mean 118 Blood Pressure Mean [Right Arm] 02 Sat by Pulse Oximetry 98 Oxygen Delivery Method Lab Data Lab Results 11/29/24 07:16: Urine Color Dark yellow, Urine Appearance Cloudy, Urine pH 6.5, Ur Specific [place] 1.020, Urine Protein Negative, Urine Glucose (UA) Negative, Urine Ketones Trace, Urine Blood Negative, Urine Nitrate Negative, Urine Bilirubin Negative, Urine Urobilinogen 0.2, Ur Leukocyte Esterase 2+ A, Urine RBC None, Urine WBC 5-10, Ur Squamous Epith Cells 10-20, Urine Bacteria 1+ 11/29/24 07:30: WBC 8.5, RBC 4.54, Hgb 13.7, Hct 42.0, MCV 92.5, MCH 30.2, MCHC 32.6, RDW 12.6, Plt Count 382, MPV 10.1, Neut % (Auto) 71.3, Lymph % (Auto) 20.3, Cassia % (Auto) 7.2, Eos % (Auto) 0.5, Baso % (Auto) 0.5, Neut # (Auto) 6.1, Lymph # (Auto) 1.7, Cassia # (Auto) 0.6, Eos # (Auto) 0.0, Baso # (Auto) 0.0, Sodium 140, Potassium 3.7, Chloride 99, Carbon Dioxide 32 H, Anion Gap 12.7, BUN 22 H, Creatinine 1.00, Estimated Creat Clear 77, Estimated GFR 58 L, Est GFR ( Amer) 70, Glucose 99, Calcium 9.4, Total Bilirubin 1.2, AST 45 H, ALT 38, Alkaline Phosphatase 99, Total Protein 7.8, Albumin 4.6, Globulin 3.2, Albumin/Globulin Ratio 1.4, Lipase 67 11/29/24 07:30 11/29/24 07:30 Orders (Tests/Meds): ED MEDICATIONS Generic Name Dose Route Start Last Admin Trade Name Freq PRN Reason Stop Dose Admin Sodium Chloride 10 ml 11/29/24 07:21 Sodium Chloride 0.9% 10ml Vial IV 12/29/24 07:20 NEEDED PRN dilute protonix Discontinued Medications Generic Name Dose Route Start Last Admin Trade Name Freq PRN Reason Stop Dose Admin Famotidine 40 mg 11/29/24 07:21 11/29/24 07:50 Famotidine 20mg/2ml Vial IV 11/29/24 07:22 40 mg ONCE ONE Administration Lactated Ringer's 1,000 mls @ 999 mls/hr 11/29/24 07:21 11/29/24 07:50 Lactated Ringer's 1000 Ml Bag IV 11/29/24 08:21 999 mls/hr .Q1H1M ONE Administration Ondansetron HCl 4 mg 11/29/24 07:21 11/29/24 07:50 Ondansetron 4mg/2ml Vial IV 11/29/24 07:22 4 mg ONCE ONE Administration Pantoprazole Sodium 40 mg 11/29/24 07:21 11/29/24 07:50 Pantoprazole 40mg Vial IV 11/29/24 07:22 40 mg ONCE ONE Administration ORDERS Category Date Time Status CBC w/Auto Diff [Complete Blood Count Auto Diff] Stat Lab 11/29/24 07:30 Completed CMP [Comprehensive Metabolic Panel] Stat Lab 11/29/24 07:30 Completed Lipase Stat Lab 11/29/24 07:30 Completed UA [Urinalysis and Microscopic] Stat Lab 11/29/24 07:16 Completed Urine Culture Stat Micro 11/29/24 07:16 Received Medical Decision Narrative: In summary, this 54-year-old female with a past medical history of hypertension and hyperlipidemia (which are not at goal therapy and increase patient's risk of morbidity/mortality) presents to the emergency department today with nausea, vomiting, diarrhea. On initial evaluation patient is afebrile, hemodynamically stable, nontoxic-appearing. No significant abdominal tenderness.. Differential diagnosis includes but is not limited to gastroenteritis, viral illness, pancreatitis, electrolyte abnormality, dehydration, gastritis, PUD, padmini lindquist tear. Based on these concerns, I ordered CBC, CMP, lipase. Patient received 1 L lactated Ringer's, Zofran, Protonix, Pepcid for treatment. Labs personally reviewed demonstrate unremarkable CBC, baseline renal function and similar mild transaminitis compared to previous labs on CMP, normal lipase. Considered CT abdomen pelvis with IV contrast, however patient had no significant abdominal tenderness. Suspect most likely etiology of her illness is a gastroenteritis. Most likely etiology of her blood-tinged emesis is a Padmini-Lindquist tear given that it progressed to blood-tinged after multiple episodes of retching. On reassessment patient was in stable condition with improvement in symptoms, tolerating oral intake without difficulty, appropriate for discharge with symptomatic management. Prescribe Zofran and short course PPI at discharge. Patient expressed reassurance and was in agreement with this plan. Critical Care Critical Care Time Critical Care Time: No
--- OUTSIDE RECORDS SUMMARY | 2024-11-29 07:21 | XMS_ITS | Patient Health Record ---
Author Organization [facility] Address [address] [place] [address] Care Team Providers Care Enrollment Services Vice President Name Role Phone Kenroy Mariano Primary Care Provider Elizabeth Perez Unavailable [phone] Brittany Abbott Unavailable [phone] Migration, Provider Unavailable Unavailable Allergies Allergen (clinical drug ingredient) Drug/Non Drug Allergy documented on EMR Reaction Allergy Type Onset Date Status PCN (uncoded) unknown Allergy Active SULFA (uncoded) rash Allergy Acti ve Results Component Value Reference Range Notes Urinalysis Reviewed date:08/06/2024 01:37:43 PM Interpretation: Performing Lab: Notes/Report: Color/Clarity yellow Leuk trace Nitrite neg Urobili 0.2 Protein neg pH 7.0 Blood neg Sp. Gr. 1.015 Ketone neg Bili neg Glucose neg LIPID PANEL, STANDARD (7600) Reviewed date:04/09/2024 07:52:02 AM Interpretation: Performing Lab:CB, [facility] [address], [facility] CenterRdqhDQ[address] Diogo Theodore Notes/Report: FASTING: YES FASTING:YES NON-FASTING; NON-FASTING; NON-FASTING; NON-FASTING; NON-FAST CHOLESTEROL, TOTAL 167 <200 mg/dL HDL CHOLESTEROL 81 > OR = 50 mg/dL TRIGLYCERIDES 79 <150 mg/dL LDL-CHOLESTEROL 70 Reference range: <100 Desirable range <100 mg/dL for primary prevention; <70 mg/dL for patients with CHD or diabetic patients with > or = 2 CHD risk factors. LDL-C is now calculated using the Mary Carmen calculation, which is a validated novel method providing better accuracy than the Friedewald equation in the estimation of LDL-C. Kannan MOLINA et al. JODY. 2013;310(19): 7457-6655 (http://education.[employer].InsightETE/faq/JCS894) CHOL/HDLC RATIO 2.1 <5.0 (calc) NON HDL CHOLESTEROL 86 <130 mg/dL (calc) For patients with diabetes plus 1 major ASCVD risk factor, treating to a non-HDL-C goal of <100 mg/dL (LDL-C of <70 mg/dL) is considered a therapeutic option. COMPREHENSIVE METABOLIC PANNaldo Zuniga (12844) Reviewed date:04/09/2024 07:52:02 AM Interpretation: Performing Lab:MARCUS, [facility] [address], [place] MoralesBxydZQ[address] Diogo Theodore Notes/Report: FASTING: YES FASTING:YES NON-FASTING; NON-FASTING; NON-FASTING; NON-FASTING; NON-FAST GLUCOSE 83 65-99 mg/dL Fasting reference interval UREA NITROGEN (BUN) 19 7-25 mg/dL CREATININE 0.89 0.50-1.03 mg/dL EGFR 77 > OR = 60 mL/min/1.73m2 BUN/CREATININE RATIO SEE NOTE: 6-22 (calc) Not Reported: BUN and Creatinine are within reference range. SODIUM 141 135-146 mmol/L POTASSIUM 4.2 3.5-5.3 mmol/L CHLORIDE 104 98-110 mmol/L CARBON DIOXIDE 30 20-32 mmol/L CALCIUM 9.7 8.6-10.4 mg/dL PROTEIN, TOTAL 6.8 6.1-8.1 g/dL ALBUMIN 4.1 3.6-5.1 g/dL GLOBULIN 2.7 1.9-3.7 g/dL (calc) ALBUMIN/GLOBULIN RATIO 1.5 1.0-2.5 (calc) BILIRUBIN, TOTAL 0.6 0.2-1.2 mg/dL ALKALINE PHOSPHATASE 92 37-153 U/L AST 20 10-35 U/L ALT 22 6-29 U/L CBC (INCLUDES DIFF/PLT) (639 9) Reviewed date:04/09/2024 07:52:02 AM Interpretation: Performing Lab:MARCUS [facility] [id number] [facility] HospitalHcqsMJ[address] Diogo Theodore Notes/Report: NON-FASTING; NON-FASTING; NON-FASTING; NON-FASTING; NON-FAST FASTING:YES FASTING: YES WHITE BLOOD CELL COUNT 7.3 3.8-10.8 Thousand/ uL RED BLOOD CELL COUNT 4.32 3.80-5.10 Million/uL HEMOGLOBIN 13.2 11.7-15.5 g/dL HEMATOCRIT 39.3 35.0-45.0 % MCV 91.0 80.0-100.0 fL MCH 30.6 27.0-33.0 pg MCHC 33.6 32.0-36.0 g/dL For adults, a slight decrease in the calculated MCHC value (in the range of 30 to 32 g/dL) is most likely not clinically significant; however, it should be interpreted with caution in correlation with other red cell parameters and the patient's clinical condition. RDW 12.5 11.0-15.0 % PLATELET COUNT 333 140-400 Thousand/uL MPV 10.8 7.5-12.5 fL ABSOLUTE NEUTROPHILS 4285 1595-3434 cells/uL ABSOLUTE LYMPHOCYTES 2183 850-3900 cells/uL ABSOLUTE MONOCYTES 686 200-950 cells/uL ABSOLUTE EOSINOPHILS 88 15-500 cells/uL ABSOLUTE BASOPHILS 58 0-200 cells/uL NEUTROPHILS 58.7 LYMPHOCYTES 29.9 MONOCYTES 9.4 EOSINOPHILS 1.2 BASOPHILS 0.8 HEMOGLOBIN A1c (496) Reviewed date:04/09/2024 07:52:02 AM Interpretation: Performing Lab:MARCUS [facility] I[address] [facility], [facility] CenterMwqvKZ[address] Diogo Theodore Notes/Report: NON-FASTING; NON-FASTING; NON-FASTING; NON-FASTING; NON-FAST FASTING:YES FASTING: YES HEMOGLOBIN A1c 5.5 <5.7 % of total Hgb For the purpose of screening for the presence of diabetes: <5.7% Consistent with the absence of diabetes 5.7-6.4% Consistent with increased risk for diabetes (prediabetes) > or =6.5% Consistent with diabetes This assay result is consistent with a decreased risk of diabetes. Currently, no consensus exists regarding use of hemoglobin A1c for diagnosis of diabetes in children. According to [place] Diabetes Association (ADA) guidelines, hemoglobin A1c <7.0% represents optimal control in non- diabetic patients. Different metrics may apply to specific patient populations. Standards of Medical Care in Diabetes(ADA). VITAMIN B12 (927) Reviewed date:04/09/2024 07:52:02 AM Interpretation: Performing Lab:MARCUS [facility] [address], [place] TyskAV[address] Diogo Theodore Notes/Report: NON-FASTING; NON-FASTING; NON-FASTING; NON-FASTING; NON-FAST FASTING:YES FASTING: YES VITAMIN B12 0310 941-2907 pg/mL VITAMIN D,25-OH,TOTAL,IA (17 306) Reviewed date:04/09/2024 07:52:02 AM Interpretation: Performing Lab:MARCUS [facility] [address], [place] FmtySU[address] Diogo Theodore Notes/Report: NON-FASTING; NON-FASTING; NON-FASTING; NON-FASTING; NON-FAST FASTING:YES FASTING: YES VITAMIN D,25-OH,TOTAL,IA 30 30-100 ng/mL Vitamin D Status 25-OH Vitamin D: Deficiency: <20 ng/mL Insufficiency: 20 - 29 ng/mL Optimal: > or = 30 ng/mL For 25-OH Vitamin D testing on patients on D2-supplementation and patients for whom quantitation of D2 and D3 fractions is required, the QuestAssureD(TM) 25-OH VIT D, (D2,D3), LC/MS/MS is recommended: order code 85122 (patients >2yrs). See Note 1 Note 1 For additional information, please refer to http://education.GBS.InsightETE/faq/VDW700 (This link is being provided for informational/ educational purposes only.) CULTURE, URINE, ROUTINE (395 ) Reviewed date:08/11/2024 11:26:54 AM Interpretation: Performing Lab:MARCUS [facility] [address], [place] TjohFB[address] Diogo Theodore Notes/Report: NON-FASTING CULTURE, URINE, ROUTINE SEE NOTE CULTURE, URINE, ROUTINE Micro Number: [id number] Test Status: Final Specimen Source: Urine, clean catch Specimen Quality: Adequate Result: Mixed genital pastora isolated. These superficial bacteria are not indicative of a urinary tract infection. No further organism identification is warranted on this specimen. If clinically indicated, recollect clean-catch, mid-stream urine and transfer immediately to Urine Culture Transport Tube. Reason For Referral Reason Dr Box c-scope Diagnosis 1 Colon cancer screeni ng (Z12.11) Referral Organization [facility] Referring Provider First Name Brittany Referring Provider Last Name Milena Referring Provider [facility] Notes Melony Desai 12:44:11 PM > faxed and they will call her Referral Priority Routine Reason mammogram [facility] Diagnosis 1 Visit for screening mammogram (Z12.31) Referral Organization [facility] Referring Provider First Name Brittany Referring Provider Last Name Milena Referring Provider [facility] Notes Melony Desai 12:43:37 PM > faxed and they will call her Referral Priority Routine Medications Medication SIG (Take, Route, Frequency, Duration) Notes Start Date End Date Status Cyclobenzaprine HCl 10 MG 1 tab(s) orall y twice a day PRN; Duration: 30 days Active MiraLax - DIRECTED ORALLY O NCE A DAY 04/07/2024 Active Triamterene-HCTZ 37.5-25 MG 1 cap(s) ora lly once a day; Duration: 90 days Active Magnesium Oxide 400 MG 1 tab(s) orally o nce a day at bedtime; Duration: 90 days 11/25/2021 Active Doxycycline Monohydrate 100 MG 1 capsule Orally twice a day; Duration: 7 days 11/24/2024 Active Atorvastatin Calcium 40 MG 1 tab(s) oral ly once a day; Duration: 90 days Active hydrOXYzine HCl 25 MG 1-2 tabs Orally On ce a day at bedtime; Duration: 30 days 11/24/2024 Active Clobetasol Propionate 0.05 % 1 applicati on Externally Twice a day; Duration: 7 days 11/24/2024 Active buPROPion HCl ER (XL) 300 MG 1 tab(s) or ally every 24 hours; Duration: 90 days Active Centrum Silver - 1 tab(s) orally once a day Active Fluticasone Propionate 50 MCG/ACT 1 spray(s) intranasally once a day; Duration: 30 days 03/30/2017 Active TYLENOL ARTHRITIS 650 MG 1 TAB Q6 HRLY PRN Active Escitalopram Oxalate 10 MG 1 tablet Oral ly Once a day; Duration: 30 days 11/24/2024 Active Immunizations Vaccine Route Administration Date Status Comme nts Influenza-Fluzone 3+years (NON-MEDICARE) IM Intramuscular 11/07/2016 Administered FLUZONE 6MO - OLDER IM Intramuscular 11/27/2022 Administer ed Covid Moderna Unknown 07/01/2020 Administered Covid Moderna Unknown 07/29/2020 Administered Social History Tobacco Use: Social History Observation Description Date Details (start date - stop date) Former Smoker NA - NA Smoking: Question Answer Notes Are you a: former smoker How long has it been since you last smoked? 1-5 years Problems Problem Type SNOMED Code ICD Code Onset Dates Problem Status W/U Status Risk Notes Problem Mild intermittent asthma (904987335) Mild intermittent asthma, uncomplicated (J45.20) Active confirmed Problem Nicotine dependence (47992483) Personal history of nicotine dependence (Z87.891) Active confirmed Problem Mixed anxiety and depressive disorder (523742741) Depression with anxiety (F41.8) Active confirmed Problem Vitamin D deficiency (05280152) Vitamin D deficiency (E55.9) Active confirmed Problem Hyperlipidemia (30505950) Hyperlipemia, idiopathic familial (E78.5) Active confirmed Problem Essential hypertension (95030209) Hypertension, essential (I10) Active confirmed Problem Seasonal allergy (256181870) Seasonal allergies (J30.2) Active confirmed Problem Restless legs syndrome (59591298) Restless leg syndrome (G25.81) Active confirmed Problem Body mass index 40+ - morbidly obese (165536902) BMI 40.0-44.9, adult (Z68.41) Active confirmed Problem Obese class I (453283445388225) BMI 33.0-33.9,adult (Z68.33) Active confirmed Problem Obese class II (689630510969588) BMI 39.0-39.9,adult (Z68.39) Active confirmed Problem Obese class II (404574053064350) BMI 38.0-38.9,adult (Z68.38) Active confirmed Problem BMI 30+ - obesity (131084316) BMI 32.0-32.9,adult (Z68.32) Active confirmed Problem Cigarette smoker (07875456) Cigarette smoker (F17.210) Active confirmed Problem Primary osteoarthritis (873010247) Primary osteoarthritis involving multiple joints (M15.0) Active confirmed Problem Obese class II (973835321810141) BMI 36.0-36.9,adult (Z68.36) Active confirmed Problem Exacerbation of moderate persistent asthma (disorder) (624076160) Moderate persistent asthma with acute exacerbation (J45.41) Active confirmed Problem Cholecystitis (88446186) Cholecystitis (K81.9) Active confirmed Problem Post-discharge follow-up (873770597) Hospital discharge follow-up (Z09) Active confirmed Problem Solitary sacroiliitis (850660583) SI (sacroiliac) joint inflammation (M46.1) Active confirmed Problem Tobacco use (051108188) Tobacco use disorder (F17.200) Active confirmed Problem 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 Problem Chronic kidney disease stage 2 (493960369) Stage 2 chronic kidney disease (N18.2) Active confirmed Problem Burning sensation (62838896) Burning sensation (R20.8) Active confirmed Vital Signs Heart Rate 78 /min 11/24/2024 Temperature 98 degrees Fahrenheit 11/24/2024 Blood pressure diastolic 80 mm Hg 11/24/2024 Height 61 in 11/24/2024 Blood pressure systolic 122 mm Hg 11/24/2024 Weight 173 lbs 11/24/2024 BMI 32.68 kg/m2 11/24/2024 Encounters Encounter Location Date Provider Diagnosis [place] [facility] [address] [facility] [address] [place] [address] 06/14/2024 Provider Migration Hyperlipemia, idiopathic familial E78.5 ; Primary osteoarthritis involving multiple joints M15.0 ; Leg cramps R25.2 and Chronic constipation K59.09 [facility] [facility] [address] [address] 04/01/2024 Kenroy Besson Pain in right wrist M25.531 and Pain in left wrist M25.532 [place] [address] [address] 04/07/2024 Brittany Abbott Routine medical exam Z00.00 ; Hemophilia D66 ; Vitamin B12 deficiency E53.8 ; Vitamin D deficiency E55.9 ; Prediabetes R73.03 ; Hyperlipemia, idiopathic familial E78.5 ; Restless leg syndrome G25.81 ; Mild intermittent asthma, uncomplicated J45.20 ; Stage 2 chronic kidney disease N18.2 ; Chronic constipation K59.09 ; Viral URI J06.9 and BMI 33.0-33.9,adult Z68.33 [facility] [address] [address] 08/06/2024 Elizabeth Perez Dysuria R30.0 ; Acut e UTI N39.0 and Pain of left calf M79.[address] [address] 11/24/2024 Brittany Abbott Routine medical exam Z00.00 ; Hemophilia D66 ; Vitamin B12 deficiency E53.8 ; Vitamin D deficiency E55.9 ; Prediabetes R73.03 ; Hyperlipemia, idiopathic familial E78.5 ; Restless leg syndrome G25.81 ; Mild intermittent asthma, uncomplicated J45.20 ; Stage 2 chronic kidney disease N18.2 ; Chronic constipation K59.09 ; BMI 32.0-32.9,adult Z68.32 ; Depression with anxiety F41.8 ; Visit for screening mammogram Z12.31 ; Colon cancer screening Z12.11 ; Bronchopneumonia J18.0 and Psoriasiform eczema L30.[address] [address] 05/06/2024 Brittany Abbott Hyperlipemia, idiopa thic familial E78.5 ; Primary osteoarthritis involving multiple joints M15.0 and Leg cramps R25.2 Assessments Encounter Date Diagnosis (ICD Code) Assessment Notes Treatment Notes Treatment Clinical Notes Section Notes 06/14/2024 Hyperlipemia, idiopathic familial (ICD-10 - E78.5) 11/24/2024 Routine medical exam (ICD-10 - Z00.00) Mammogram due, will arrange. Immunizations UTD. Does not take flu shot. Colonoscopy due, will arrange 11/24/2024 Hemophilia (ICD-10 - D66) No signs of excessive bleeding, will check CBC with fasting labs 05/06/2024 Hyperlipemia, idiopathic familial (ICD-10 - E78.5) 08/06/2024 Dysuria (ICD-10 - R30.0) 08/06/2024 Acute UTI (ICD-10 - N39.0) Urine culture the emergency department grew E. coli, sensitive to everything except ampicillin. She was treated with nitrofurantoi n. Recommend Cipro, repeat culture, encouraged good water intake. If symptoms do not resolve with this treatment she may need imaging versus pelvic exam. 04/07/2024 Routine medical exam (ICD-10 - Z00.00) Mammogram UTD. Immunizations UTD. Does not take flu shot. Colonoscopy UTD 04/01/2024 Pain in right wrist (ICD-10 - M25.531) 04/01/2024 Pain in left wrist (ICD-10 - M25.532) 04/07/2024 Hemophilia (ICD-10 - D66) No signs of excessive bleeding, CBC drawn today 04/07/2024 Vitamin B12 deficiency (ICD-10 - E53.8) Will check vit levels and treat as indicated 08/06/2024 Pain of left calf (ICD-10 - M79.662) Suspect strain of the gastroc muscle, rest, ice, stretching encouraged. Return precautions reviewed 05/06/2024 Primary osteoarthritis involving multiple joints (ICD-10 - M15.0) 06/14/2024 Primary osteoarthritis involving multiple joints (ICD-10 - M15.0) 11/24/2024 Vitamin B12 deficiency (ICD-10 - E53.8) Will check vit levels and treat as indicated 11/24/2024 Vitamin D deficiency (ICD-10 - E55.9) 06/14/2024 Leg cramps (ICD-10 - R25.2) 05/06/2024 Leg cramps (ICD-10 - R25.2) 04/07/2024 Vitamin D deficiency (ICD-10 - E55.9) 04/07/2024 Prediabetes (ICD-10 - R73.03) Doing well with diet and weight loss. Continue diet, exercise as tolerated. 11/24/2024 Prediabetes (ICD-10 - R73.03) Doing well with diet and weight loss. Continue diet, exercise as tolerated. 11/24/2024 Hyperlipemia, idiopathic familial (ICD-10 - E78.5) On statin, tolerating well. Will check fasting lipid panel and treat as indicated 04/07/2024 Hyperlipemia, idiopathic familial (ICD-10 - E78.5) On statin, tolerating well. Will check fasting lipid panel today and treat as indicated 04/07/2024 Restless leg syndrome (ICD-10 - G25.81) Well controlled on magnesium 11/24/2024 Restless leg syndrome (ICD-10 - G25.81) Well controlled on magnesium 11/24/2024 Mild intermittent asthma, uncomplicated (ICD-10 - J45.20) No longer smoking. Treat bronchopneumonia as below 04/07/2024 Mild intermittent asthma, uncomplicated (ICD-10 - J45.20) No longer smoking. Not currently using inhalers. No acute symptoms. 04/07/2024 Stage 2 chronic kidney disease (ICD-10 - N18.2) Avoids NSAIDs and nephrotoxic medications. Increase oral fluid intake 11/24/2024 Stage 2 chronic kidney disease (ICD-10 - N18.2) Avoids NSAIDs and nephrotoxic medications. Increase oral fluid intake 11/24/2024 Chronic constipation (ICD-10 - K59.09) Increase Miralax to 1 capful in 8oz clear liquids twice daily and titrating dose to affect. Patient may need to be on this for months. Discussehealthy diet high in fiber as well as increase water in diet. Goal is 1 soft BM per day. . 06/14/2024 Chronic constipation (ICD-10 - K59.09) 04/07/2024 Chronic constipation (ICD-10 - K59.09) Discussed what constipation is and how this is treated. Discussed starting OTC Miralax at 1 capful in 8oz clear liquids once daily and titrating dose to affect. Patient may need to be on this for months. Discussehealthy diet high in fiber as well as increase water in diet. Goal is 1 soft BM per day. . 04/07/2024 Viral URI (ICD-10 - J06.9) Reassurance. Discussed the etiology & expected course of a viral URI and discussed the rationale for not prescribing antibiotics. Continue supportive care with PRN antipyretics, appropriate OTC cough/cold meds, nasal saline rinses, cough drops, and humidifier. Encourage PO hydration. Discussed the signs and symptoms of worsening condition and need for reassessment in clinic or ED. 11/24/2024 BMI 32.0-32.9,adult (ICD-10 - Z68.32) Continue diet, exercise, weight loss 11/24/2024 Depression with anxiety (ICD-10 - F41.8) Start SSRI with hydroxyzine PRN for sleep. Discussed rationale for pharmacotherapy, and discussed MOA of med. Discussed time course of expected improvements, and discussed side effect profile - and need for urgent evaluation if agitation or worsening mood occurs. Discussed need for f/u in office. 04/07/2024 BMI 33.0-33.9,adult (ICD-10 - Z68.33) Doing well with weight loss, positive reinforcement provided 11/24/2024 Visit for screening mammogram (ICD-10 - Z12.31) 11/24/2024 Colon cancer screening (ICD-10 - Z12.11) 11/24/2024 Bronchopneumonia (ICD-10 - J18.0) Discussed the etiology and expected course of bronchopneumonia. Discussed the rationale for antibiotics and steroid use and the importance of completing the prescription as prescribed. Discussed supportive care. Discussed the signs and symptoms of worsening infection/respirato ry distress that may indicate need for reassessment in clinic/ED. 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 Patient is followed by orthopedics who plan to keep her in a wrist splint for 2 more weeks. If patient is still experiencing pain, ortho mentioned obtaining an MRI with the potential for surgery. Plan Of Treatment Pending Test Test Name Order Date occult blood 02/13/2020 Physical Therapy 11/27/2023 Mammogram : Bilateral 11/24/2024 Mammogram : Bilateral 08/10/2023 Mammogram : Bilateral 07/23/2020 H-HEPATITIS PROFILE (CHRONIC) 12/19/2016 C-CMP 07/15/2018 C-LIPID PANEL 07/15/2018 C-HGBA1C 07/15/2018 M-Complete Blood Count Auto Diff 022 M-Complete Blood Count Auto Diff 021 M-Miscellaneous Test 07/27/2020 M-Comprehensive Metabolic Panel 08/27/19 22 M-Comprehensive Metabolic Panel 11/20/19 21 M-Lipid Panel 11/19/2020 M-Lipid Panel 08/26/2021 M-Vitamin B12 08/26/2021 M-Vitamin B12 07/23/2020 M-Vitamin B12 06/14/2022 M-Vitamin D 25 Hydroxy 06/14/2022 M-Vitamin D 25 Hydroxy 07/23/2020 M-Vitamin D 25 Hydroxy 08/26/2021 M-Vitamin D 25 Hydroxy 11/19/2020 M-LETITIA Comprehensive Panel 07/27/2020 F-Pkjv-Jsnntg Citrullinated Pept 021 Future Test Test Name Order Date H-PT/INR 11/08/2016 H-BLEEDING TIME 11/08/2016 H-PTT 11/08/2016 Next Appt Details Provider Name:Brittany Maya Marvin Zuleta, 12/15/2024 12:00:00 PM, [address] [place] [address], [phone], Insurance Providers Payer Name Payer Address Payer Phone Subscriber Number Group Number Insured Name Patient Relationship to Insured Coverage Start Date Coverage End Date [employer] [facility] [address] [address] [place] [address] [phone] [id number] Heena Capone Self - patient is the insured Medications Administered Medication Instructions Date of Administration Dosage Notes Dexamethasone 4mg Injection 07/20/2021 4 mg Dexamethasone 4mg Injection 11/27/2022 4 mg Dexamethasone 4mg Injection 10/05/2023 4 mg Dexamethasone 4mg Injection 11/24/2024 4 mg Kenalog 40mg 03/30/2017 40 mg Medical (General) History Medical History History ICD Code HTN hemophiliac colonoscopy August 2019 with tubular adeno mas Surgical History Surgery Date(Month/Year) hernia repair D and C with hemorrhage cholecystectomy 03/2019 colonoscopy- repeat 5 yours, repeated 03/2023 tubular adenoma- repeat in 3 years 08/2019 Hospitalization History Reason Date(Month/Year) above
[2024-11-29 07:23] VITALS: BP 153/95; PULSE 71; RESP 20; TEMP 37.2; O2SAT 97; BMI 32.1
[2024-11-29 07:30] VITALS: BP 132/87; PULSE 67; RESP 18; O2SAT 96
[2024-11-29 07:45] LABS: Microscopic, Urine URINE MICROSCOPIC (MICROSCOPIC)
[2024-11-29 07:47] LABS: Hematocrit 42.0 % (37.0-47.0); Hemoglobin 13.7 g/dL (12.2-16.2); Immature Granulocytes % 0.2 %; Mean Corpuscular HGB Conc 32.6 g/dL (31.8-35.4); Mean Corpuscular Hemoglobin 30.2 pg (27.0-31.2); Mean Corpuscular Volume 92.5 fl (81-99); Nucleated Red Blood Cells % 0 %; Platelet Count 382 K/mm3 (142-424); Red Blood Count 4.54 M/mm3 (4.20-5.40); Red Cell Distribution Width-SD 42.8 fL; White Blood Count 8.5 K/mm3 (4.8-10.8)
[2024-11-29] MEDS: FAMOTIDINE 20MG/2ML VIAL 40 MG IV (07:50)
[2024-11-29] MEDS: LACTATED RINGERS 1000ML 1,000 ML 999 ML IV (07:50)
[2024-11-29] MEDS: ONDANSETRON 4MG/2ML VIAL 4 MG IV (07:50)
[2024-11-29] MEDS: PANTOPRAZOLE 40MG VIAL 40 MG IV (07:50)
[2024-11-29 08:00] VITALS: BP 156/93; PULSE 63; RESP 18; O2SAT 96
[2024-11-29 08:02] LABS: Glucose,Urine (UA) Negative (Negative); Ketones,Urine TRACE (Negative); Leukocyte Esterase,Urine 2+ (Negative); PH,Urine 6.5 (5.0-8.5); Protein,Urine Negative (Negative); Specific Gravity, Urine 1.020 (1.005-1.030); Urobilinogen,Urine 0.2 EU/dl (0.2)
[2024-11-29 08:20] LABS: Bilirubin,Urine Negative (Negative); Color,Urine Dark Yellow (Yellow)
[2024-11-29 08:21] LABS: Bacteria,Urine 1+ /lpf
[2024-11-29 08:30] VITALS: BP 138/77; PULSE 64; RESP 18; O2SAT 98
[2024-11-29 08:33] LABS: Albumin Level 4.6 g/dl (3.5-5.0); Chloride 99 mmol/L (98-107); Potassium 3.7 mmoL/L (3.5-5.1); Sodium 140 mmol/L (136-145)
[2024-11-29 08:35] LABS: Blood Urea Nitrogen 22 mg/dl (7-17); Creatinine Clearance Estimated 77 mL/min (50-200); Creatinine,Serum 1.00 mg/dl (0.52-1.04); Estimated Glomerular Filt Rate 58 ml/min (>60); GFR (African American) 70 ML/MIN (>60)
[2024-11-29 08:36] LABS: Alanine Aminotransferase 38 U/L (12-78); Albumin/Globulin Ratio 1.4 (1.1-1.8); Alkaline Phosphatase 99 U/L (38-126); Anion Gap 12.7 mEq/L (5-15); Aspartate Amino Transferase 45 U/L (14-36); Bilirubin,Total 1.2 mg/dl (0.2-1.3); Calcium 9.4 mg/dl (8.4-10.2); Carbon Dioxide 32 mmol/L (22.0-30.0); Globulin 3.2 g/dL (1.3-3.2); Glucose 99 mg/dl (74-100); Lipase 67 U/L (23-300); Total Protein,Serum 7.8 g/dl (6.3-8.2)
[2024-11-29 09:01] VITALS: BP 163/98; PULSE 65; RESP 18; O2SAT 97
[2024-11-29 09:02] VITALS: BP 163/98; PULSE 61; RESP 20; TEMP 36.7; O2SAT 97
== END 2024-11-29 09:07 | disposition home or self-care (01) ==
PROVIDERS: Emergency Provider Student in an Organized Health Care Education/Training Program; PCP Internal Medicine Adolescent Medicine
DX: K52.9 Noninfective gastroenteritis and colitis, unspecified (principal); R11.2 Nausea with vomiting, unspecified; E78.5 Hyperlipidemia, unspecified; I10 Essential (primary) hypertension
CPT/HCPCS: 80053; 81001; 83690; 85025; 87086; 96365; 96375; 99285; J2405; J2470; J7120

== ENCOUNTER 2024-12-04 12:49 | Outpatient (CLI) | payer OTHER, SELFPAY ==
--- NOTE | 2024-12-04 12:52 | MM_ITS ---
PROCEDURE INFORMATION: Exam: MG Bilateral Screening 3D Mammography Exam date and time: 12/04/2024 1:09 PM Age: 54 years old Clinical indication: Screening examination TECHNIQUE: Imaging protocol: Bilateral Screening tomosynthesis and 2D mammography including computer-aided detection (CAD) when performed. COMPARISON: 1. MG MM DIG SCREENING MAMM BI W/CAD 11/23/2023 1:05 PM 2. MG MM DIG SCREENING MAMM BI W/CAD 06/22/2022 8:04 AM FINDINGS: MAMMOGRAPHY: Breast composition: There are scattered areas of fibroglandular density. Mass: None. Architectural distortion: None. Calcifications: No suspicious calcifications. Asymmetric density: None. Skin thickening: None. Axillary adenopathy: None. IMPRESSION: No mammographic evidence of malignancy. Annual screening is recommended unless otherwise clinically indicated. ASSESSMENT: BI-RADS Category 1: Negative.
== END 2024-12-04 23:59 | disposition home or self-care (01) ==
LOC: RAD 12:50
PROVIDERS: PCP Nurse Practitioner Family; Visit Provider Nurse Practitioner Family
DX: Z12.31 Encounter for screening mammogram for malignant neoplasm of breast (principal); R92.323 Mammographic fibroglandular density, bilateral breasts
CPT/HCPCS: 77063; 77067